=== PATIENT | male | born 1960 | race Caucasian/White ===

== ENCOUNTER 2023-02-11 06:39 | Outpatient (OUT) | payer MEDICARE, SELFPAY ==
[2023-02-11 07:03] LABS: Basophils Absolute Auto 0.1 10^3/uL (0.0-0.1); Basophils Percent Auto 0.9 % (0.2-2.0); Eosinophils Absolute Auto 0.2 10^3/uL (0.0-0.7); Eosinophils Percent Auto 2.3 % (0.9-7.0); Hematocrit 42.7 % (42.0-54.0); Hemoglobin 14.4 g/dL (14.0-18.0); Immature Granulocytes Abs Auto 0.03 10^3/uL (0.00-0.03); Immature Granulocytes Pct Auto 0.4 % (0.0-0.5); Lymphocytes Absolute Auto 2.7 10^3/uL (1.2-3.8); Lymphocytes Percent Auto 38.5 % (20.5-60.0); Mean Corpuscular HGB Conc 33.7 g/dL (29.9-35.2); Mean Corpuscular Hemoglobin 32.1 pg (25.9-34.0); Mean Corpuscular Volume 95.3 fL (80.0-94.0); Mean Platelet Volume 9.9 fL (9.5-13.5); Monocytes Absolute Auto 0.4 10^3/uL (0.3-0.8); Neutrophils Absolute Auto 3.6 10^3/uL (1.4-6.5); Neutrophils Percent Auto 51.9 % (43.0-75.0); Platelet Count 147 10^3/uL (150-450); Red Blood Count 4.48 10^6/uL (4.70-6.10); Red Cell Distribution Width 12.2 % (11.0-15.0)
[2023-02-11 07:20] LABS: Alanine Aminotransferase 33 U/L (16-63); Anion Gap 8.9; BUN Creatinine Ratio 16.4; Calcium 8.5 mg/dL (8.5-10.1); Carbon Dioxide 30.4 mmol/L (21.0-32.0); Chloride 103 mmol/L (98-107); Cholesterol 201 mg/dL (<=200); Estimated GFR (African America >60 (>=60); Estimated GFR (Non-African Ame 56 (>=60); Glucose 155 mg/dL (74-106); HDL Cholesterol 40 mg/dL (40-60); Potassium 4.3 mmol/L (3.5-5.1); Sodium 138 mmol/L (136-145); Triglycerides 272 mg/dL (<=150); VLDL CHOLESTEROL 54.4 mg/dL
[2023-02-11 07:32] LABS: Prostate Specific Antigen Scrn 1.69 ng/mL (<=4.00)
[2023-02-11 07:35] LABS: Estimated Average Glucose 151 mg/dL; Glycohemoglobin A1C 6.9 % (4.5-6.2)
[2023-02-11 12:45] LABS: Microalbumin Urine Random 1.4 mg/dL (<=30.0)
== END 2023-02-11 06:40 | disposition home or self-care (01) ==
LOC: LAB 06:44
PROVIDERS: PCP Internal Medicine; Visit Provider Internal Medicine
DX: Z79.899 Other long term (current) drug therapy (principal); E11.65 Type 2 diabetes mellitus with hyperglycemia; E78.2 Mixed hyperlipidemia; I10 Essential (primary) hypertension; Z12.5 Encounter for screening for malignant neoplasm of prostate
CPT/HCPCS: 36415; 80048; 80061; 82043; 83036; 84460; 85025; G0103

== ENCOUNTER 2023-03-14 07:57 | Outpatient (OUT) | payer MEDICARE, SELFPAY ==
--- OUTSIDE RECORDS SUMMARY | 2023-03-14 08:00 | XMS_ITS | CCD ---
Author Name Unknown Address [address] [place] [address] Organization [facility] Care Team Providers Care Mobile Plant Operators Name Role Phone LANIE CRUZ BENJAMIN E Unavailable Unavailable Ayden, Xavi Garcia Unavailable Unavailable Unavailable AYDEN, DR STAFFORD Primary Care Unavailable REQUEST, DR SIMPSON LISTED Admitting Unavaila ble REQUEST, DR SIMPSON LISTED Attending Unavaila ble BALL, DR STAFFORD Consulting Unavailable REQUEST, DR SIMPSON LISTED Admitting Unavaila ble REQUEST, DR SIMPSON LISTED Attending Unavaila ble AYDEN, DR STAFFORD Primary Care Unavailable REQUEST, DR SIMPSON LISTED Consulting Unavaila ble MAY, EVA Cano Admitting Unavailable MAY, EVA Cano Attending Unavailable BALL, DR STAFFORD Primary Care Unavailable ZIEBER, DR ROOSEVELT Gomez Consulting Unavailable HIGHLEVA MARTINS Consulting Unavailable BALL, DR STAFFORD Admitting Unavailable BALL, DR STAFFORD Attending Unavailable AYDEN, DR STAFFORD Primary Care Unavailable BALL, DR STAFFORD Consulting Unavailable BALL, DR STAFFORD Admitting Unavailable BALL, DR STAFFORD Attending Unavailable BALL, DR STAFFORD Primary Care Unavailable BALL, DR STAFFORD Consulting Unavailable WEST, DR JESSICA Wren Consulting Unavailable XAVI HENSLEY Primary Care Physician Ayden, Dr. Xavi Finney Primary Care Landon Cruz, Dr. Lanie Carlton Referring Radhika vailable Cruz, Dr. Lanie Carlton Attending Radhika vailable Cruz, Dr. Lanie Carlton Attending Radhika vailable Ayden, Dr. Xavi Finney Primary Care Landon Cruz, Dr. Lanie Carlton Referring Radhika vaXavi Poole Unavailable Yoseph CHA Attending Unavailable CHA, Yoseph Gomez Referring Unavailable CHA, Yoseph Gomez Admitting Unavailable Yoseph CHA Attending Unavailable CHA, Yoseph Gomez Attending Unavailable CHA, Yoseph Gomez Attending Unavailable CHA, Yoseph Gomez Attending Unavailable CHA, Yoseph Gomez Attending Unavailable CHA, Yoseph R Attending Unavailable XAVI HENSLEY Referring Unavailable Yoseph CHA Referring Yoseph Roche Attending Unavailable Allergies Allergy Classification Reported Allergen(s) Allergy Type Date of Onset Reaction(s) Facility (1 source) AmLODIPine & Diet Manage Prod *CALCIUM CHANNEL BLO Propensity to adverse reactions Unknown [facility] Other (1 source) Statins Depletion *DIETARY PRODUCTS/DIETAR Y MANAGE Propensity to adverse reactions Unknown [facility] Other (1 source) No Known Medication Allergies; Translations: [No Known Medication Allergies] Propensity to adverse reactions (disorder) [facility] Repository Medications Current Medications Medication Drug Class(es) Dates Sig (Normalized) Sig (Original) Ascorbic Acid (4 sources) Vitamin C Start: 04-29-2022 Vitamin C Daily, Refills(s) 0 Start Date: 04/29/22 Status: Ordered carvedilol 6.25 mg oral tablet (8 sources) alpha-Adrenergic Zen, beta-Adrenergic Zen Start: 04-29-2022 carvedilol 6.25 mg Tab Refills(s) 0 Start Date: 04/29/22 Status: Ordered Centrum Silver (4 sources) Start: 04-29-2022 Centrum Silver Oral, Daily, Refill(s) 0 Start Date: 04/29/22 Status: Ordered ciprofloxacin 500 mg oral tablet (1 source) Quinolone Antimicrobial Start: 03-03-2023 End: 03-24-2023 take 1 tablet by mouth twice daily Cipro 500 mg Tab 500 mg = 1 tab(s), Oral, BID, X 3 week(s), # 42 tab(s), Refills(s) 0, Pharmacy: [facility] #[id number], 168, cm, 03/03/23 11:05:00 EST, Height/Length Dosing, 85, kg, 03/03/23 11:05:00 EST, Weight Dosing Start Date: 03/03/23 Stop Date: 03/24/23 Status: Ordered doxycycline hyclate 100 mg oral capsule (2 sources) Tetracycline-class Drug Start: 05-21-2022 End: 07-20-2022 take 1 capsule by mouth every twelve hours doxycycline hyclate 100 mg Cap 100 mg = 1 cap(s), Oral, q12hr, X 30 day(s), # 60 cap(s), Refills(s) 1, Pharmacy: [facility] #[id number], 168, cm, 05/14/22 10:37:00 EST, Height/Length Dosing, 86, kg, 04/29/22 9:16:00 EST, Weight Dosing Start Date: 05/21/22 Stop Date: 07/20/22 Status: Ordered Start: 04-29-2022 End: 05-20-2022 take 1 capsule by mouth twice daily doxycycline hyclate 100 mg Cap 100 mg = 1 cap(s), Oral, BID, X 3 week(s), # 42 cap(s), Refills(s) 0, Pharmacy: [facility] #[id number], 168, cm, 04/29/22 9:16:00 EST, Height/Length Dosing, 86, kg, 04/29/22 9:16:00 EST, Weight Dosing Start Date: 04/29/22 Stop Date: 05/20/22 Status: Ordered dutasteride 0.5 mg oral capsule (7 sources) 5-alpha Reductase Inhibitor Start: 04-29-2022 take 1 capsule by mouth once daily dutasteride 0.5 mg Cap 0.5 mg = 1 cap(s), Oral, Daily, # 90 cap(s), Refills(s) 3, Pharmacy: [facility], 168, cm, 05/14/22 10:37:00 EST, Height/Length Dosing, 86, kg, 04/29/22 9:16:00 EST, Weight Dosing Start Date: 08/08/22 Status: Ordered Avodart CAPS AYESHA E 1 CAPSULE Daily Quantity: 0 Refills: 0 Ordered: 08-Oct-2022 DO Active ezetimibe 10 mg oral tablet (8 sources) Dietary Cholesterol Absorption Inhibitor Start: 04-29-2022 ezetimibe 10 mg Tab Refills(s) 0 Start Date: 04/29/22 Status: Ordered Fish Oils (4 sources) Start: 04-29-2022 Fish Oil Oral, Refill(s) 0 Start Date: 04/29/22 Status: Ordered ibuprofen 800 mg oral tablet (5 sources) Nonsteroidal Anti-inflammatory Drug Start: 04-29-2022 ibuprofen 800 mg Tab Refills(s) 0 Start Date: 04/29/22 Status: Ordered Start: 03-20-2022 take 1 tablet by david every eight hours at mealtime as needed Ibuprofen 800 MG 1 tablet with food or milk as needed Orally every 8 hrs for 30 days Feb, Active lisinopril 20 mg oral tablet (8 sources) Angiotensin Converting Enzyme Inhibitor Start: 04-29-2022 lisinopril 20 mg Tab Refills(s) 0 Start Date: 04/29/22 Status: Ordered MAGNESIUM GLUCONATE (4 sources) Start: 04-29-2022 magnesium gluconate Oral, BID, Refills(s) 0 Start Date: 04/29/22 Status: Ordered Prevagen (4 sources) Start: 04-29-2022 take 1 ug by mouth once daily Prevagen mcg, Oral, Daily, Refills(s) 0 Start Date: 04/29/22 Status: Ordered tadalafil 10 mg oral tablet (5 sources) Phosphodiesterase 5 Inhibitor Start: 04-29-2022 Cialis 10 mg Tab 10 mg = 1 tab(s), Oral, MonThu, PRN for erectile dysfunction, Refills(s) 0 Start Date: 04/29/22 Status: Ordered Start: 12-04-2021 Cialis 20MG Ci kate 20MG, 1 (one) Tablet Tablet Tablet PRN ED # 32, 12/04/2021, Ref. x3. Active Oral PRN ED for 0 Nov, Not-Taking tamsulosin hydrochloride 0.4 mg oral capsule (9 sources) alpha-Adrenergic Zen Start: 01-17-2022 tamsu losin 0.4 mg Cap Daily, Refills(s) 0 Start Date: 04/29/22 Status: Ordered take 1 capsule by mo [facility] every twelve hours Tamsulosin HCl 0.4 MG 1 capsule Orally twice a day for 90 days Not-Taking take 1 capsule by mouth once estella ly Tamsulosin HCl - 0.4 MG Oral Capsule Take 1 capsule by mouth daily Quantity: 90 Refills: 0 Ordered: 17-Oct-2021 DO Active Completed/Discontinued Medications Medication Drug Class(es) Dates Sig (Normalized) Sig (Original) esomeprazole 40 mg oral tablet (1 source) Proton Pump Inhibitor Start: 11-28-2020 take 1 capsule by mouth once daily Esomeprazole Magnesium 40MG Esomeprazole Magnesium 40MG, 1 (one) Capsule Capsule Capsule daily on empty stomach [facility], No Refill. Active Oral daily on empty stomach [facility] Nov, Not-Taking Fish Oil 1200 MG Oral Capsule Delayed Release (3 sources) take 2 capsules by mouth once daily Fish Oil 1200 MG Oral Capsule Delayed Release 2 daily Quantity: 0 Refills: 0 Ordered: 17-Oct-2021 DO Active levoFLOXacin 500 mg oral tablet (1 source) Quinolone Antimicrobial Start: 03-07-2022 take 1 tablet by mouth once daily levoFLOXacin 500mg levoFLOXacin 500mg, 1 (one) tablet tablet daily # 20, 03/07/2022, No Refill. Active oral daily for 0 Feb, Not-Taking magnesium oxide 250 mg oral tablet (3 sources) take 1 tablet by mouth once daily Magnesium Oxide 250 MG Oral Tablet one daily Quantity: 0 Refills: 0 Ordered: 17-Oct-2021 DO Active meloxicam 15 mg oral tablet (1 source) Nonsteroidal Anti-inflammatory Drug Start: 11-19-2021 take 1 tablet by mouth once daily Meloxicam 15 MG meloxicam 15MG, 1 (one) Tablet Tablet Tablet daily # 30, 11/19/2021, Ref. x2. Active Oral daily for 0 Oct, Not-Taking Multi-Vitamin Daily Oral Tablet (1 source) take 1 tablet by mouth once daily Multi-Vitamin Daily Oral Tablet TAKE 1 TABLET DAILY. Quantity: 0 Refills: 0 Ordered: 17-Oct-2021 DO Active Multi-Vitamin Daily TABS (2 sources) Multi-Vitamin Daily TABS TAKE 1 TABLET DAILY. Quantity: 0 Refills: 0 Ordered: 17-Oct-2021 DO Active Suprep Bowel Prep . (1 source) Start: 05-28-2013 Suprep Bowel Prep . as directed Orally May, Not-Taking Problems Active Problems Problem Classification Problem Date Documented Date Episodic/Chronic Coronary atherosclerosis and other heart disease (1 source) Coronary atherosclerosis and other heart disease Onset: 01-29-2018 Diabetes mellitus with complications (2 sources) Hyperglycemia due to type 2 diabetes mellitus; Translations: [Type 2 diabetes mellitus with hyperglycemia] Chronic Disorders of lipid metabolism (6 sources) Hyperlipidemia; Translations: [Other and unspecified hyperlipidemia] Onset: 03-24-1961 Chronic Essential hypertension (10 sources) Essential hypertension; Translations: [Unspecified essential hypertension] 04-29-2022 Chronic Essential hypertension (1 source) Essential hypertension Onset: 01-29-2018 Genitourinary symptoms and ill-defined conditions (13 sources) Gross hematuria; Translations: [Blood in urine] Onset: 03-19-2022 Episodic Hyperplasia of prostate (11 sources) Benign prostatic hypertrophy without outflow obstruction; Translations: [Benign prostatic hyperplasia without lower urinary tract symptoms] Onset: 04-29-2022 Chronic Inflammatory conditions of male genital organs (6 sources) Prostatitis; Translations: [Inflammatory disease of prostate, unspecified] Onset: 04-29-2022 Episodic Nonspecific chest pain (1 source) Other chest pain; Translations: [Other chest pain] Onset: 01-29-2018 Episodic Other liver diseases (1 source) Fatty (change of) liver, not elsewhere classified; Translations: [FATTY CHANGE LIVER NEC] Onset: 03-22-2022 Chronic Other nutritional; endocrine; and metabolic disorders (3 sources) Obesity; Translations: [Obesity, unspecified] Chronic Other screening for suspected conditions (not mental disorders or infectious disease) (14 sources) Elevated prostate specific antigen [PSA]; Translations: [Raised prostate specific antigen] Onset: 03-14-2022 Episodic Unclassified (2 sources) Other chest pain / R07.89(ICD-9) Onset: 01-29-2018 Unclassified (1 source) Dyspnea, unspecified / R06.00(ICD-9) Onset: 01-29-2018 Unclassified (1 source) Obesity, unspecified / E66.9(ICD-9) Onset: 01-29-2018 Unclassified (1 source) Pure hypercholesterolemia, unspecified / E78.00(ICD-9) Onset: 01-29-2018 Unclassified (1 source) Finding of sensation of bladder 03-03-2023 Past or Other Problems Problem Classification Problem Date Documented Da te Episodic/Chronic Other connective tissue disease (4 sources) Pain in right foot; Translations: [PAIN IN RIGHT FOOT] Onset: 11-14-2021 Episodic Other connective tissue disease (1 source) Calcaneal spur, right foot; Translations: [CALCANEAL SPUR RIGHT FOOT] Onset: 11-16-2021 Episodic Other lower respiratory disease (3 sources) Angiotensin-convert ing-enzyme inhibitor adverse reaction; Translations: [Cough] Resolved: 10-17-2021 Episodic Superficial injury; contusion (1 source) Superficial foreign body, right foot, initial encounter; Translations: [SUPERFICIAL FB RT FOOT INITIAL] Onset: 11-16-2021 Episodic Unclassified (3 sources) Never smoked tobacco; Translations: [Never smoker] Results Test Name Value Interpretation Reference Range Facility Lab Report[facility] 03-07-2023 Lab Reports [id number] .00TIFF Normal [facility] Consent for Procedure/Surger yon 03-04-2023 Consent for Procedure/Surgery [id number] .00TIFF Normal [facility] Lab Reportson 03-04-2023 Lab Reports [id number] .00TIFF Normal [facility] Ambulatory Visit Summaryon 1 05-04-2022 Ambulatory Visit Summary JOSEY NUNEZ :1960 Visit Date:03/03/2023 Ambulatory Visit Instructions Your Diagnosis BPH (benign prostatic hyperplasia) Elevated PSA Feeling of incomplete bladder emptying Prostatitis Your Care Team Attending Physician - Yoseph CHA MD Primary Care Physician - XAVI HENSLEY DO This Is Your Medications List ciprofloxacin (Cipro 500 mg Tab) dutasteride (dutasteride 0.5 mg Cap) tadalafil (Cialis 10 mg Tab) tamsulosin (tamsulosin 0.4 mg Cap) Contact prescribing physician if questions or concerns ascorbic acid (Vitamin C) carvedilol (carvedilol 6.25 mg Tab) cholecalciferol (Prevagen) ezetimibe (ezetimibe 10 mg Tab) ibuprofen (ibuprofen 800 mg Tab) lisinopril (lisinopril 20 mg Tab) magnesium gluconate multivitamin with minerals (Centrum Silver) omega-3 polyunsaturated fatty acids (Fish Oil) Procedures Performed Cystoscopy (04/29/2022), Hernia, Tonsillectomy. Discharge Vitals Heart Rate (Peripheral) 73 Respiratory Rate 16 Blood Pressure 125/87 Height 168 cm Height 66 in Weight 85 kg Weight 187 lb BMI 30.12 What to do next Scheduled Follow-Up Appointments Friday 9:00 AM EST Where: [facility] Jennifer Tam [facility] Patient Educationon 03-03-20 Patient Education Urology Transurethral Resection of the Prostate Transurethral resection of the prostate (TURP) is the removal, or resection, of part of the prostate tissue. This procedure is done to treat an enlarged prostate gland (benign prostatic hyperplasia). The goal of TURP is to remove enough prostate tissue to allow for a normal flow of urine. The procedure will allow you to empty your bladder more completely when you urinate so that you can urinate less often. In a transurethral resection, a thin telescope with a light, a camera, and an electric cutting edge (resectoscope) is passed through the urethra and into the prostate. The opening of the urethra is at the end of the penis. Tell a health care provider about: ? Any allergies you have. ? All medicines you are taking, including vitamins, herbs, eye drops, creams, and ahxa-mfg-tvdxdyy medicines. ? Any problems you or family members have had with anesthetic medicines. ? Any bleeding problems you have. ? Any surgeries you have had. ? Any medical conditions you have. ? Any prostate infections you have had. What are the risks? Generally, this is a safe procedure. However, problems may occur, including: ? Infection. ? Bleeding. ? Allergic reactions to medicines. ? Blood in the urine (hematuria). ? Damage to nearby structures or organs. Other problems may occur, but they are rare. They include: ? Dry ejaculation, or having no semen come out during orgasm. ? Erectile dysfunction, or being unable to have or keep an erection. ? Scarring that leads to narrowing of the urethra. This narrowing may block the flow of urine. ? Inability to control when you urinate (incontinence). ? Deep vein thrombosis. This is a blood clot that can develop in your leg. ? TURP syndrome. This can happen when you lose too much sodium during or after the procedure. Some signs and symptoms of this condition include: ? Weakness. ? Headaches. ? Nausea or vomiting. ? Muscle cramping. What happens before the procedure? When to stop eating and drinking Follow instructions from your health care provider about what you may eat and drink before your procedure. These may include: ? 8 hours before your procedure ? Stop eating most foods. Do not eat meat, fried foods, or fatty foods. ? Eat only light foods, such as toast or crackers. ? All liquids are okay except energy drinks and alcohol. ? 6 hours before your procedure ? Stop eating. ? Drink only clear liquids, such as water, clear fruit juice, black coffee, plain tea, and sports drinks. ? Do not drink energy drinks or alcohol. ? 2 hours before your procedure ? Stop drinking all liquids. ? You may be allowed to take medicines with small sips of water. If you do not follow your health care provider's instructions, your procedure may be delayed or canceled. Medicines Ask your health care provider about: ? Changing or stopping your regular medicines. This is especially important if you are taking diabetes medicines or blood thinners. ? Taking medicines such as aspirin and ibuprofen. These medicines can thin your blood. Do not take these medicines unless your health care provider tells you to take them. ? Taking oedz-ekb-powxzbx medicines, vitamins, herbs, and supplements. Surgery safety Ask your health care provider what steps will be taken to help prevent infection. These steps may include: ? Removing hair at the surgery site. ? Washing skin with a germ-killing soap. ? Taking antibiotic medicine. General instructions ? Do not use any products that contain nicotine or tobacco for at least 4 weeks before the procedure. These products include cigarettes, chewing tobacco, and vaping devices, such as e-cigarettes. If you need help quitting, ask your health care provider. ? If you will be going home right after the procedure, plan to have a responsible adult: ? Take you home from the hospital or clinic. You will not be allowed to drive. ? Care for you for the time you are told. What happens during the procedure? ? An IV will be inserted into one of your veins. ? You will be given one or more of the following: ? A medicine to help you relax (sedative). ? A medicine to make you fall asleep (general anesthetic). ? A medicine that is injected into your spine to numb the area below and slightly above the injection site (spinal anesthetic). ? Your legs will be placed in foot rests (stirrups) so that your legs are apart and your knees are bent. ? The resectoscope will be passed through your urethra to your prostate. ? Parts of your prostate will be resected using the cutting edge of the resectoscope. ? Fluid will be passed to rinse out the cut tissues (irrigation). ? The resectoscope will be removed. ? A small, thin tube (catheter) will be passed through your urethra and into your bladder. The catheter will drain urine into a bag outside of your body. The procedure may vary among health care (more content not included)... Normal [facility] Urology Office/Clinic Noteon 03-03-2023 Urology Office/Clinic Note Chief Complaint elevated PSA and BPH HPI Staff 6 month f/u. Previous dx of BPH and elevated PSA. Pt called 02/27/23 stating that he was only voiding in small amounts. He states that he is not really getting the urge to void he just begins to feel a lot of pressure in his abdomen so he makes himself void. Pt states that this started just before Thanksgi. Pt continues use of Dutasteride 0.5mg QD, Tamsulosin 0.4mg BID and Cialis 10mg PRN. Current PSA done on 02/11/23 was 1.69. Pt was unable to void for UA sample. States that it has been several hours since last void and PVR is 209ml. Dysuria: no Incomplete bladder emptying: yes Hematuria: no Frequency: pt states he is not getting the urge to void he is just feeling a lot of pressure so he makes himself void several times a day. Urgency: no Nocturia: 1x Stream: weaker Leaking: no Post void dripping: no Wearing pads/ Depends: no Urge incontinence: no Stress incontinence: no Incontinence without Sensory Awareness: no Abdominal pain: nothing sharp just pressure Flank pain: bilateral discomfort Sexual complaints: no History of Present Illness Tests reviewed: reviewed UA and PSA. I have reviewed the previous health record information and history for this patient from . I have reviewed and verified the staff HPI to be accurate for this encounter. There have been no associated fever, chills, flank pain, or blood in the urine. Denies any urinary infections since last encounter. Review of Systems PHQ Score Initial Depression Screen Score: 0 SCORE ROS - Provider Constitutional: denies weight loss, denies hot flashes. Eyes: denies eye problems. Gastrointestinal: denies nausea, denies vomiting. Cardiovascular: denies chest pain or angina. Integumentary: no dryness Musculoskeletal: denies musculoskeletal symptoms. ENMT: denies otolaryngeal symptoms. Respiratory: no shortness of breath. Heme/Lymph: denies easy bleeding tendency, denies easy bruising tendency. Psychiatric: no confusion, no anxiety. Genitourinary: See HPI. Physical Exam Vitals & Measurements HR: 73(Peripheral) RR: 16 BP: 125/87 HT: 66 in HT: 168 cm WT: 85 kg WT: 187 lb BMI: 30.12 General Appearance: alert, no distress, well nourished, well developed male. Assessment/Plan 1. BPH (benign prostatic hyperplasia) (N40.0: Benign prostatic hyperplasia without lower urinary tract symptoms) Cysto 05/21/22 - Obstructing median lobe, friable prostate. Trilobar obstruction. Moderate trabeculation, small diverticuli. Pt continues use of Dutasteride 0.5mg QD, Tamsulosin 0.4mg BID and Cialis 10mg PRN. Pt on max dosing for prostate meds, consider TURP if urination becomes worse/bothersome. Explained cons of this procedure vs other [facility] procedures, TURP is the gold standard. Advised pt that now is the time to get it done due to pt experiences increase bothersome urinary sxs. Pt states that he would like to get the TURP done. All questions/concerns were discussed. Pt to call the office if he encounters any issues prior. Pt acknowledges understanding. -Will schedule TURP. The procedural risks, benefits, details, and treatment alternatives have been discussed with the patient. These include bleeding, infection, need for blood transfusion, continued urinary difficulties, urinary leakage which could be permanent, need for catheter, retrograde ejaculation, scar tissue formation in the urinary channel or area of prostate shaving, erection problems, blood clot formation in the lower extremities which could travel to the lungs, among others. A secondary operation could also be required. Full informed consent has been obtained. Will order General anesthesia. -See #3 and #4 2. Elevated PSA (R97.20: Elevated prostate specific antigen [PSA]) PSA (ordered by PCP): 05/15/16 - 2.37 01/22/18 - 2.79 09/08/19 - 3.71 02/26/22 - 5.32 03/14/22 - 3.80 & 22.9% Started Dutasteride 04/29/22. Also treated for prostatitis (Doxy x 3 wks) at this visit. 02/11/23 - 1.69 Discussed PSA levels with pt, low and stable. Will continue to monitor. 3. Feeling of incomplete bladder emptying (R39.14: Feeling of incomplete bladder emptying) Pt called 02/27/23 stating that he was only voiding in small amounts. He states that he is not really getting the urge to void he just begins to feel a lot of pressure in his abdomen so he makes himself void. Pt states that this started just before . Pt was unable to void for UA sample. States that it has been several hours since last void and PVR is 209ml. -Will place catheter today. Stay placed for about 2 weeks. -See #1 and #4 4. Prostatitis (N41.9: Inflammatory disease of prostate, unspecified) Advised pt that he may have prostatitis. Pt states that he took the Doxy for about 2 wks, had stomach issues, went to his PCP due to his sxs, had finished the rest of the Doxy, and had no improvement. Advised pt that we will start him on a new course of abx and place a cath today. (more content not included)... Normal [facility] Comment on above: Result Comment: Elec tronically Signed By: Yoseph CHA MD\.br\Date and Time Signed: 03/03/23 11:48 EST\.br\Electronically Co-Signed By: Laura Haney\.br\Date and Time Co-Signed: 03/03/23 11:45 EST Office Visit (Cardiology)on 10-08-2022 Follow-up visit Diagnoses/Problems Assessed Essential hypertension (401.9) (I10) Hyperlipidemia (272.4) (E78.5) Class 1 obesity with body mass index (BMI) of 31.0 to 31.9 in adult (278.00,V85.31) (E66.9,Z68.31) Never smoker BPH with elevated PSA (600.00,790.93) (N40.0,R97.20) Orders Class 1 obesity with body mass index (BMI) of 31.0 to 31.9 in adult Healthy Weight Tips; Status:Complete - Retrospective Authorization; Done: [id number] Some eating tips that can help you lose weight.; Status:Complete - Retrospective Authorization; Done: [id number] Essential hypertension Renew: Carvedilol 6.25 MG Oral Tablet; Take 1 tablet twice a day Renew: Lisinopril 20 MG Oral Tablet; TAKE 1 TABLET BY MOUTH DAILY SocHx: Never smoker Tobacco Use Screening; Status:Complete; Done: [id number] Patient Instructions Please bring all medicines, vitamins, and herbal supplements with you when you come to the office. Prescriptions will not be filled unless you are compliant with your follow up appointments or have a follow up appointment scheduled as per instruction of your physician. Refills should be requested at the time of your visit. Follow up in 1 year. Lab as scheduled Same meds Chief Complaint JOSEY NUNEZ is being seen for an annual follow-up of. Patient is in the office for follow-up for the problems noted below. Since he was last seen in the office year ago he has had no trouble whatsoever he has no side effect of medications and denies any palpitations dyspnea orthopnea PND or lower extremity edema. He follows with urology and is stable on medical therapy his PSA was tested recently and has been on target. He takes 2 medication for his prostate disease. Has not seen his PCP recently and is scheduled to have his blood work in 4 months. He is a prince and maintains active lifestyle. Apart from class I obesity physical examination was normal. Assessment/recommenda tions: 1- essential hypertension presently under control medical therapy with no changes needed. Patient was wondering if his medication need to be reduced if he loses weight. I did indicate to him that if that happens we will address it at the time and he can see me sooner than scheduled to address this issue. He is very conscientious about his health. 2? dyslipidemia , currently on ezetimibe 10 mg daily which has been tolerated. Blood work is scheduled in 4 months. 3?obesity.encouraged patient to continue to work on low-calorie diet: Regular exercise. 4?BPH on medical therapy followed by urology and stable Patient will follow-up with any office in 1 year Surgical History Problems History of Complete colonoscopy Managed By: Garry MARTINEZ, Nehemias Lopez (Gastroenterology) History of Dental implant procedure History of Hernia repair History of Tonsillectomy Past Medical History Problems History of Cough due to MAC inhibitor (786.2,E942.6) (R05.8,T46.4X5A) Resolved Date: 17 Oct 2021 Current Meds Medication NameInstruction Avodart CAPSTAKE 1 CAPSULE Daily Carvedilol 6.25 MG Oral TabletTake 1 tablet twice a day Ezetimibe 10 MG Oral TabletTAKE 1 TABLET BY MOUTH DAILY Fish Oil 1200 MG Oral Capsule Delayed Release2 daily Lisinopril 20 MG Oral TabletTAKE 1 TABLET BY MOUTH DAILY Magnesium Oxide 250 MG Oral Tabletone daily Multi-Vitamin Daily TABSTAKE 1 TABLET DAILY. Tamsulosin HCl - 0.4 MG Oral CapsuleTake 1 capsule twice daily Patient did not bring medication list or bottles. Updated verbally with patient Allergies Medication No Known Drug Allergies Recorded By: Kenia Lowery; 10/17/2021 9:04:52 AM Social History Problems Alcohol use (V49.89) (Z78.9) Caffeine use (V49.89) (Z78.9) Never smoker No illicit drug use Review of Systems Constitutional: not feeling tired. Cardiovascular: no intermittent leg claudication and as noted in HPI. Respiratory: no cough and no shortness of breath. Gastrointestinal: no change in bowel habits and no blood in stools. Integumentary: no skin rashes. Neurological: no seizures and no frequent falls. All other systems have been reviewed and are negative for complaint. Vitals Vital Signs Recorded: [id number] 08:56AM Heart Rate76, R Radial Ookxikzx017, RUE, Sitting Avjovidpm37, RUE, Sitting Height5 ft 6 in [id number] lb BMI Rrvggrzqpn93.47 kg/m2 BSA Calculated1.98 Tobacco Useb) No PHQ-2 #1. Over the last 2 weeks have you felt down, depressed or hopeless? (If yes, answer PHQ-9 below)No PHQ-2 #2. Over the last 2 weeks have you felt little interest or pleasure in doing things? (If yes, answer PHQ-9 below)No Physical Exam Constitutional: alert and in no acute distress. Neck: neck is supple, symmetric, trachea midline, no masses and no thyromegaly . Pulmonary: no increased work of breathing or signs of respiratory distress and lungs clear to auscultation. Cardiovascular: carotid pulses 2+ bilaterally with no bruit , JVP was normal, no thrills , regular rhythm, normal S1 and S2, no murmurs , pedal p (more content not included)... Normal [facility] Tobacco Screening.on 023 Adult depression screening assessment No [facility] K[facility] 250 DO Work Phone: Tobacco use status [facility] b) No [facility] 250 DO Work Phone: Ambulatory Visit Summaryon 0 09-09-2022 Ambulatory Visit Summary JOSEY NUNEZ :1960 Visit Date:09/09/2022 Ambulatory Visit Instructions Your Diagnosis Elevated PSA BPH (benign prostatic hyperplasia) Your Care Team Attending Physician - Yoseph CHA MD Primary Care Physician - XAVI HENSLEY DO Referring Physician - Yoseph CHA MD This Is Your Medications List dutasteride (dutasteride 0.5 mg Cap) Contact prescribing physician if questions or concerns ascorbic acid (Vitamin C) carvedilol (carvedilol 6.25 mg Tab) cholecalciferol (Prevagen) ezetimibe (ezetimibe 10 mg Tab) ibuprofen (ibuprofen 800 mg Tab) lisinopril (lisinopril 20 mg Tab) magnesium gluconate multivitamin with minerals (Centrum Silver) omega-3 polyunsaturated fatty acids (Fish Oil) tadalafil (Cialis 10 mg Tab) tamsulosin (tamsulosin 0.4 mg Cap) Procedures Performed Cystoscopy (04/29/2022), Hernia, Tonsillectomy. Discharge Vitals Heart Rate (Peripheral) 77 Respiratory Rate 16 Blood Pressure 129/87 Height 168 cm Height 66 in Weight 85.4 kg Weight 187.88 lb BMI 30.26 What to do next You Need to Schedule the Following Appointments Follow Up with Yoseph CHA MD, URL When: Where: [facility] [address], [place] [address]- Medications What How Much When Instructions Unchanged dutasteride (dutasteride 0.5 mg Cap) 1 Capsules By Mouth Every day Unchanged ascorbic acid (Vitamin C) Every day Contact prescribing physician if questions or concerns Unchanged carvedilol (carvedilol 6.25 mg Tab) Contact prescribing physician if questions or concerns Unchanged cholecalciferol (Prevagen) By Mouth Every day Contact prescribing physician if questions or concerns Unchanged ezetimibe (ezetimibe 10 mg Tab) Contact prescribing physician if questions or concerns Unchanged ibuprofen (ibuprofen 800 mg Tab) Contact prescribing physician if questions or concerns Unchanged lisinopril (lisinopril 20 mg Tab) Contact prescribing physician if questions or concerns Unchanged magnesium gluconate By Mouth 2 times a day Contact prescribing physician if questions or concerns Unchanged multivitamin with minerals (Centrum Silver) By Mouth Every day Contact prescribing physician if questions or concerns Unchanged omega-3 polyunsaturated fatty acids (Fish Oil) By Mouth Contact prescribing physician if questions or concerns Unchanged tadalafil (Cialis 10 mg Tab) 1 Tablets By Mouth Friday & as needed for for erectile dysfunction Contact prescribing physician if questions or concerns Unchanged tamsulosin (tamsulosin 0.4 mg Cap) Every day Contact prescribing physician if questions or concerns Allergies No Known Medication Allergies Problems Ongoing - Any problem that you are currently receiving treatment for. BPH (benign prostatic hyperplasia) Elevated PSA Gross hematuria Hypertension Prostatitis Education Materials Prostate Cancer Screening Prostate cancer screening is testing that is done to check for the presence of prostate cancer in men. The prostate gland is a walnut-sized gland that is located below the bladder and in front of the rectum in males. The function of the prostate is to add fluid to semen during ejaculation. Prostate cancer is one of the most common types of cancer in men. Who should have prostate cancer screening? Screening recommendations vary based on age and other risk factors, as well as between the professional organizations who make the recommendations. In general, screening is recommended if: ? You are age 50 to 70 and have an average risk for prostate cancer. You should talk with your health care provider about your need for screening and how often screening should be done. Because most prostate cancers are slow growing and will not cause , screening in this age group is generally reserved for men who have a 10- to 15-year life expectancy. ? You are younger than age 50, and you have these risk factors: ? Having a father, brother, or uncle who has been diagnosed with prostate cancer. The risk is higher if your family member's cancer occurred at an early age or if you have multiple family members with prostate cancer at an early age. ? Being a male who is Black or is of Chris or sub-Saharan descent. In general, screening is not recommended if: ? You are younger than age 40. ? You are between the ages of 40 and 49 and you have no risk factors. ? You are 70 years of age or older. At this age, the risks that screening can cause are greater than the benefits that it may provide. If you are at high risk for prostate cancer, your health care provider may recommend that you have screenings more often or that you start screening at a younger age. How is screening for prostate cancer done? The recommended prostate cancer screening test is a blood test called the prostate-specific antigen (PSA) test. PSA is a protein that i (more content not included)... Normal [facility] Patient Educationon 09-10-19 Patient Education Oncology Prostate Cancer Screening Prostate cancer screening is testing that is done to check for the presence of prostate cancer in men. The prostate gland is a walnut-sized gland that is located below the bladder and in front of the rectum in males. The function of the prostate is to add fluid to semen during ejaculation. Prostate cancer is one of the most common types of cancer in men. Who should have prostate cancer screening? Screening recommendations vary based on age and other risk factors, as well as between the professional organizations who make the recommendations. In general, screening is recommended if: ? You are age 50 to 70 and have an average risk for prostate cancer. You should talk with your health care provider about your need for screening and how often screening should be done. Because most prostate cancers are slow growing and will not cause , screening in this age group is generally reserved for men who have a 10- to 15-year life expectancy. ? You are younger than age 50, and you have these risk factors: ? Having a father, brother, or uncle who has been diagnosed with prostate cancer. The risk is higher if your family member's cancer occurred at an early age or if you have multiple family members with prostate cancer at an early age. ? Being a male who is Black or is of Chris or sub-Saharan descent. In general, screening is not recommended if: ? You are younger than age 40. ? You are between the ages of 40 and 49 and you have no risk factors. ? You are 70 years of age or older. At this age, the risks that screening can cause are greater than the benefits that it may provide. If you are at high risk for prostate cancer, your health care provider may recommend that you have screenings more often or that you start screening at a younger age. How is screening for prostate cancer done? The recommended prostate cancer screening test is a blood test called the prostate-specific antigen (PSA) test. PSA is a protein that is made in the prostate. As you age, your prostate naturally produces more PSA. Abnormally high PSA levels may be caused by: ? Prostate cancer. ? An enlarged prostate that is not caused by cancer (benign prostatic hyperplasia, or BPH). This condition is very common in older men. ? A prostate gland infection (prostatitis) or urinary tract infection. ? Certain medicines such as male hormones (like testosterone) or other medicines that raise testosterone levels. A rectal exam may be done as part of prostate cancer screening to help provide information about the size of your prostate gland. When a rectal exam is performed, it should be done after the PSA level is drawn to avoid any effect on the results. Depending on the PSA results, you may need more tests, such as: ? A physical exam to check the size of your prostate gland, if not done as part of screening. ? Blood and imaging tests. ? A procedure to remove tissue samples from your prostate gland for testing (biopsy). This is the only way to know for certain if you have prostate cancer. What are the benefits of prostate cancer screening? ? Screening can help to identify cancer at an early stage, before symptoms start and when the cancer can be treated more easily. ? There is a small chance that screening may lower your risk of dying from prostate cancer. The chance is small because prostate cancer is a slow-growing cancer, and most men with prostate cancer from a different cause. What are the risks of prostate cancer screening? The main risk of prostate cancer screening is diagnosing and treating prostate cancer that would never have caused any symptoms or problems. This is called overdiagnosisand overtreatment. PSA screening cannot tell you if your PSA is high due to cancer or a different cause. A prostate biopsy is the only procedure to diagnose prostate cancer. Even the results of a biopsy may not tell you if your cancer needs to be treated. Slow-growing prostate cancer may not need any treatment other than monitoring, so diagnosing and treating it may cause unnecessary stress or other side effects. Questions to ask your health care provider ? When should I start prostate cancer screening? ? What is my risk for prostate cancer? ? How often do I need screening? ? What type of screening tests do I need? ? How do I get my test results? ? What do my results mean? ? Do I need treatment? Where to find more information ? The [place] [employer]: www.cancer.org ? [employer]: www.auanet.org Contact a health care provider if: ? You have difficulty urinating. ? You have pain when you urinate or ejaculate. ? You have blood in your urine or semen. ? You have pain in your back or in the area of your prostate. Summary ? Prostate cancer is a common type of cancer in men. The prostate gland is located below the bladder and in front of the rectum. This gland adds flu (more content not included)... Normal [facility] Urology Office/Clinic Noteon 09-09-2022 Urology Office/Clinic Note Chief Complaint BPH HPI Staff F/u to local cysto done 04/29/22. Previous dx include gross hematuria, BPH, elevated PSA and prostatitis. Negative FISH/Cytology 04/29/22 and most current PSA done 03/14/22 was 3.8 and 22.9%. Pt continues taking Dutasteride 0.5mg QD, Tamsulosin 0.4mg QD and Cialis 10mg Mon and Thurs. Dysuria: no Incomplete bladder emptying: no Hematuria: no Frequency: no Urgency: no Nocturia: pt is not getting up Stream: good stream some occasional intermittency Leaking: no Post void dripping: no Wearing pads/ Depends: no Urge incontinence: no Stress incontinence: no Incontinence without Sensory Awareness: no Abdominal pain: no Flank pain: no Sexual complaints: no History of Present Illness Tests reviewed: reviewed UA, cysto note. I have reviewed the previous health record information and history for this patient from Dr. Cha. I have reviewed and verified the staff HPI to be accurate for this encounter. There have been no associated fever, chills, flank pain, or blood in the urine. Denies any urinary infections since last encounter. Review of Systems PHQ Score Initial Depression Screen Score: 0 ROS - Provider Constitutional: denies weight loss, denies hot flashes. Eyes: denies eye problems. Gastrointestinal: denies nausea, denies vomiting. Cardiovascular: denies chest pain or angina. Integumentary: no dryness Musculoskeletal: denies musculoskeletal symptoms. ENMT: denies otolaryngeal symptoms. Respiratory: no shortness of breath. Heme/Lymph: denies easy bleeding tendency, denies easy bruising tendency. Psychiatric: no confusion, no anxiety. Genitourinary: See HPI. Physical Exam Vitals & Measurements HR: 77(Peripheral) RR: 16 BP: 129/87 HT: 66 in HT: 168 cm WT: 85.4 kg WT: 187.88 lb BMI: 30.26 General Appearance: alert, no distress, well nourished, well developed male. Genitourinary: normal scrotum, normal testes, normal urethra, normal epididymis, normal vas deferens/spermatic cord. Flank Pain: none. Bladder: nonpalpable. Assessment/Plan 1. Elevated PSA (R97.20: Elevated prostate specific antigen [PSA]) PSA (ordered by PCP): 05/15/16 - 2.37 01/22/18 - 2.79 09/08/19 - 3.71 02/26/22 - 5.32 03/14/22 - 3.80 & 22.9% Started Dutasteride 04/29/22. Also treated for prostatitis (Doxy x 3 wks) at this visit. Last PSA on the high end of normal. Will cont to monitor. Educated pt to double PSA while taking Dutasteride. 2. BPH (benign prostatic hyperplasia) (N40.0: Benign prostatic hyperplasia without lower urinary tract symptoms) Cysto 05/21/22 - Obstructing median lobe, friable prostate. Trilobar obstruction. Moderate trabeculation, small diverticuli. No sample provided for UA today. Started Dutasteride 0.5 mg QD and Tamsulosin 0.4 mg bid at prior OV. Taking Cialis 10 mg 2x/week. Feels he empties completely. No nocturia. Noticed worsening urination after gaining weight on a cruise. Working on weight loss. No urgency episodes. No gross hematuria after completing abx course. Hematuria workup 04/2022 was neg. Pt on max dosing for prostate meds, consider TURP if urination becomes worse/bothersome or if pt were to develop UTIs. Pt inquired about Urolift. Explained cons of this procedure vs other YEBOAH procedures, TURP is the gold standard. Reviewed cysto findings with pt. Follow up 6 mos PSA FT from PCP or sooner if needed. Pt understands and agrees with plan. -Pt to call if he were to develop infection prior to next encounter. Follow-up With When Contact Information Yoseph CHA MD, URL [facility] [address] [place] [address]- Additional Instructions: 6 mos PSA FT from PCP in [place] Patient Education Prostate Cancer Screening I, Carmen Markham, personally scribed for Dr. Cha on 09/09/2022 10:10:01. . Documentation recorded by the scribe, Carmen Markham, accurately reflects the services(s) I performed and decisions made by me. Authenticated by Dr. Cha on 09/09/2022 10:13:10. Problem List/Past Medical History Ongoing BPH (benign prostatic hyperplasia) Elevated PSA Gross hematuria Hypertension Prostatitis Historical No qualifying data Procedure/Surgical History Cystoscopy (04/29/2022), Hernia, Tonsillectomy. Medications carvedilol 6.25 mg Tab Centrum Silver, Oral, Daily Cialis 10 mg Tab, 10 mg= 1 tab(s), Oral, MonThu, PRN dutasteride 0.5 mg Cap, 0.5 mg= 1 cap(s), Oral, Daily, 3 refills ezetimibe 10 mg Tab Fish Oil, Oral ibuprofen 800 mg Tab lisinopril 20 mg Tab magnesium gluconate, Oral, BID Prevagen, Oral, Daily tamsulosin 0.4 mg Cap, Daily Vitamin C, Daily Allergies No Known Medication Allergies Social History Tobacco - Denies Tobacco Use, 09/09/2022 Never (less than 100 in lifetime) Tobacco Use:. Never Smokeless Tobacco Use:., 04/29/2022 Family History Family history is negative Immunizations Vaccine Date Status (more content not included)... Normal [facility] Comment on above: Result Comment: Elec tronically Signed By: Yoseph CHA MD\.br\Date and Time Signed: 09/09/22 10:13 EDT\.br\Electronically Co-Signed By: Carmen Markham\.br\Date and Time Co-Signed: 09/09/22 10:10 EDT Coding Summary.on 05-22-2022 Coding Summary. CD:[id number] G h0bWw+PGhlYWQ+ZC4DPQP wK30rmVNypT8KY3zNIX9I NIBRNMJBHO8LZL6tlCQ1Z RjwV6SuvyFj TcrwmQKgHS05RTk0PUN2j NozLEakfH7phZKnK5e8Wy JcXT01pF84TGfqNTTwBrW 3LjZpbjsgbWFy Q3noStLcnJYzAhr+PHRhY mxlIHdpZHRoPScxMDAlJy OvpHrrAS4fJx4aZOHoHRX vbGxhcHNlOiBj i0eoETPnTLnzGL6bkDeoC 4AbdBU9HIJfe0c6Cc13fT I+RKNlUIA3wAgcVOqfp18 8QrFwx2gxJOL9 aBKoWTlgAJK6I94rk5V0C ADxYRXtDAZ5jFW6uD3lfI flxjaxN1ObaBJqOrN7KFW 5pDVwbK7pmKja nrhbzY2sHwf+C24CGE6WT SGUMY8ACvu4Q7BzLxbmlZ I+JE52TBLmYW78yBTypAN fm4cvcJj2KlJp DUYtFRJ9rCevQEvrn0ReT STsE35ihOGhd0L9AGMesC dtzUZyBhRmoFV9rX9mTCv qktujq9yztvgp Ylcby2vgwc30nS73Y67xZ ZcgZFVuXLE6XRSiECHtvV zntv1seP9zHz8+NJvui8l fu1iksDl4SoYl PSHkipKdsYndZGL8v2QcR f20I6LgrAtfz3VwNtw6wb 70gASjq5T8pOG0PUqrQXH ndF5hOZzsDpV9 KQPwIkMguL94xPQiUWocA z0snPqwoWvgOR5cOVSqpi ckNFQylF7oOXWyfBLacEy nXS8aDYUwbwot e814MjIrACR7MWCjgPGgK 7RbwA0vFgBcWKAxKKFvS6 SjmHRcWJqkN447ZQkwXkN 7KOTnujSrL8Nk IKZxcQxiHhJ6e7E0Xt6Mk 7TxngqpAJA5HEvjBDLcAp ZyMyQxJpQ0E4TgXng4LJZ zkXlhUX8lJ4Tc HZNjuuniwjwklST3TLRtF OKknI95rRDlYFicYc8pk1 R9y026GIMxYHLzfK76Sr7 udDogMTBwdCBU dQ4exzjuk0wqmdscHcAsC ULgTUk1UNc1SXChyQrlTw SsYHW4PcZ3XDU3fEUttH8 qfRvltczbrY2w Oyc+Q01zuN0qRJN9ZXP1d nddJXAncgEvIN84OX41L6 RyPjwvdGFibGU+PGRpdiB hyMxwKE1iZxSh d5dnx3DeMHodG8UeMWNyH VyjJox7YINzMGE0iEN2iG 6wZVNgDIkds0C9xVL2D7F usyMwpu2sp4bq QZIrNRleS45ipRTxw9H4I NYgmWU5CCDcdQdaOlXerB 93Oyc+NBJyyTrlj0HuPin uw1zvq0vngYv9 YcIbHWFgrcPvyEfsSDM2y 4TgFt59M48tTOawIJZeUH WfXCEkFETptBnbbm5bhO3 wIi8+PGNvbCB3 wVS4dM2rCOGjEdO3AQnwZ 892UaGuuAPqGhtqc7vzu9 saqBg9UdAgGWRhmiZttEl bAXP4b5RrVj99 U69gWSnrVYFzUSMnKLYbE EYeiOkbnm7qoW3rQy9+PC 4hs9vhnl18xE07xMK+PHR bFPV1bRxvFZfo JFHbiG8iDAtuCiX2SBSdL dPrpV19hUKnPKjoFm9smW fnkBpxQO7mRYWviixha55 0WnUtr8tdMLLu rGCmLTbrEAV5K14gn7K9Z RYaFARyUUI5bHT3lX2xfN lnbjogbGVmdDsgdmVydGl wFPejLUmyT960 IHRvcDsnPlBhdGllbnQgT aAzWOz6J6RuGts0QEAizV uyXT5wrFNoFSvtAd5mmXo vdTbiIC6uGMQw edcxz239JjXen2iwWVTcq GZxHArhSGJ0W59pg4B3KB MkGVArGSE9cXK0nF8gcLo nbjogbGVmdDsg tiLhfYvvCWzcORieT421N HRvcDsnPkJpcnRoIERhdG O6UR70SX09tRYue1Q1oCR 0Z2JeXETpaqhp qoqppBO6PXPwUCFfyZ63Y a0xaOcvKe3pWXAnAOF7VE SmfCUgA0CwkM0aFiJtGWZ fRQSzF0NsaZEe CFgwZ736OTngPaY3NCQdk aPoM8PdBQJhtJgzNsB1e0 P5Ny0NC1F0YK56AG69iUJ xh3B6dHT2C6Uo NPQzgaxwpoftqYL8XSCpT FNpkY92Rc1eyJreDy5sNN UhCOT5QRPwvNJnE1LgzA3 yOiAjMDAwMDAw Y4JdkYUwXQhxW657IJooK qP9FNKkzkBpG3DwGSPfbJ ayTqR1c7L9Gb2TBUg7KE2 4SE31oBUtc7W9 vWS5U4TrLIZzshbayawna AG3YEFuIVEeuS45Lm7wlX kiOn4qJHEySTT0NUHgyYM uG8IzaH9mVqAs YIOsUDWmU9TogYJxDNvjA 152TLixXhW8KUFnkdMlK1 DiOHZjvGeqLtR2n8D0Gu2 CALCkAC44PHG4 pBE7UD22DF38N0IfNhogm GFibGU+PHRhYmxlIHdpZH RoPScxMDAlJyBzdHlsZT0 lGz6oPQVxWLXn eAjquYGaMlPkx1iaJIGiO DozPB8tgKxhN8PpcDV4QJ Fzj7j9Rp32W78vC9HrvKU +HQXjeFN8eIV0 aK5jUkBdNsF5HUxrM322H iAeiJRbPbyes0jye2lyvL x3JhO5AVDhvxWkeEzsRWN 5c9QnGx05T26y IHdpZHRoPSIxNSUiIHZhb Zlgex3uuU2cDx2+PGNvbC L4lTO5nR7xHxDoEoX8ZUl zE671SbFwlHZo Ivxxm2bkf4pfbBc9FmLyW FEdqcSjsYbdJDV9h3SyWk 26I3UyuBaxo0IwVkt4el6 5cEVfs9S2aOE0 Z3TdKGNwjznfiJOlsZnfR J4zNLPpgtgfIXZwtE2cRX ZnX5r7XgQuEoY7XGssJ1C vagY2FZEdcIXf HGjvWWV0Q59yn5B4SEWkW QUlEGB6xIX7sI4obLqadx ogbGVmdDsgdmVydGljYWw iTSahB007WVUo fEodHBOouX7lUJKufBKoy RohEK2gANFfsnzxSrfVQ7 0NLwjxYujQSAXAZUUZWQ3 7WD59cGQbe3Q7 wBX8Y0KxUSHmyfthhotjb WN8UKCxLTMesW46tMJzLJ jhBy2xr7S0f291EBOtLUI riB04Lw3hzBta SHYhqCZEpM1abrimt6upx pxzFmUqQQTpXEp5XZd0ZT EwtBqoMeWsDZT5OkG2PSM 4kPNkhL4qfInq lkddiD1pUbn+MTAvMzEvM Rn8QBzbpXD+KIJhUMV4oV rcRTmrWLTkaL0sLXQlR7j 1JdNqExJ8KRfq B2HeXLRsyrdfWa38rR6dA mEoGnG2NFfhY5CwmaF7MJ VczCJvSUbeTFL9Y98cb4O 3PVVuTTNwFRG3 qHF4tJ0geKsjsgorhHMem DsgdmVydGljYWwtYWxpZ2 60LFWvuGizXcR7NAtvDPR oFK46OH49gOTs r1T4gBR8J6HhJCNhcmole tqbvCH1MQTuUVYtdO85fH ShFSytSo2zr2D5e289NQZ bJNRudM78Bi0u jThxOFOqeXMMiU1jhvfme 0xptgtpKcXnULIeBRw5KQ g4JSDllBsaScJrPDO1EsH 9FTX7rMItxQ2a pBfdolojcB1wFyv+TWFsZ TwvdGQ+IYKxOHL9pOioJZ knLMDabH3wRVCzX6x1FfY cLwV3JStxE2Fa UGBngkpeEv72hD3jPsWuB bL8WAybM2EkdqN2PGPsuO HpDBowOCW6U39qd5A9SPO nSZKuYTJ2hLU3 kH9qiYfhqcnzzYCkrLrvx gOdbJuxRYmvRCtpS191NU NsrHlnIa87uKBxlLumzgW 3O6BoGayyrQA+ SK64JSEcPT89nDXepPGlu 5mnpWn6OlAsVWTbSZR4rQ hcZOufm6MyZHMcO10ahUA sj3V4PFYseKmz eIGjHdCuvRB7iH7aPKyhh dxeq8hcigzdJbgje7lxnq 75yW18I68hNKojUKBlTGJ zMCUiIHZhbGln ma3xgW0iGg4+UXFeqIZ4w WF3kR9sUoScEyE8BLecT4 52WhLwyILdTekkw5yrc4z lbDo4BsJkQQCy nxKddGotMDR1n4TzZz42V 29sIHdpZHRoPSIyMCUiIH NldMkxzo7veE1sTi7+PC9 ya6ewjk63mC33 dHI+XBKtVOC2jIykLNxyR OFjbS8hZOwjBxY0JRWnRe OugI93fCOxNCvkCg4whXl lyVqkQB8lPIZu smdsi333JkXmv5iyIOEes DGnPNabHDI2R04wu6E5JY WtTRXsFZS5eUH9gK6bgUc nbjogbGVmdDsg kuVbgHdeLFkvGUgvA839S RAbnOytVePluJFeW1tdlt XADQ7xWbsgtIA+PHRkIHN 0eWxlPSdwYWRk rL6yJQPbF3q9FfLrJqI8Q KwaI3XbmwI8BPGimULgQW YerJKIvO6mmqhpx8yamae gIzAwMDAwMDt0 FFt8BXFysNmsPxTeTMB3J eP8VUB9aWNytJ9gySispa mlbD1nMtq+RklOOjwvdGQ +VQKvRAE3yAxx OMsjWQBmzD4bBABaP3v5A eLcSkE0EOetQ0RnryY9KD HroULwGIKdwABSxA4eqyr gw1hbclivCzKh RVCwZNt5FXq5SWHndVzlO yFyGBQ6PbV9SXU1rNKbhZ 5dxQepjhmpqL1qYaz+TVJ OOjwvdGQ+PHRk HLE5uJsqVIvdVWFswF9pY AZxG8t8EmFqXkK3RCdbQ9 WwpeF0WFLkiJOcDSPlmMP AeO4fpsjnr2da zuikAjOiXDOlHBq2ZXu6Q CUklYzfCuNiDHM0DoE4LF I0oSIydF1gjHxjubdbaX6 wOyc+HPC1KNI3 JY97HZ38C0QmAbqteKYii +PHRhYmxlIHdpZHRoPS lzTFMmYhUjnPwxKV3mXu5 yZGVyLWNvbGxh cHNl (more content not included)... [facility] Consent for Procedure/Surger yon 05-21-2022 Consent for Procedure/Surgery [id number]# 1.00CD:127 [facility] Consent for Treatmenton 04-25 Consent for Treatment [id number]#1 .00CD:127 [facility] IntraOperative Documentson 0 05-21-2022 IntraOperative Documents [id number]# 1.00CD:127 [facility] Main OR Intraoperative Recor don 05-21-2022 Main OR Intraoperative Record IntraOp Document Type FTURO Summary Primary Physician: Yoseph CHA MD Finalized Date/Time: 05/21/22 10:00:28 Pt. Name: JOSEY NUNEZ/Sex: 1960 Male Med Rec #: [id number] Physician: Yoseph CHA MD Financial #: [id number] Pt. Type: O Room/Bed: / Admit/Disch: 05/21/22 09:22:48 - Institution: Case Times FTURO Entry 1 Patient Times In Room 05/21/22 09:48:00 Out Room 05/21/22 10:06:00 Procedure Times Start 05/21/22 09:54:00 Stop 05/21/22 10:00:00 Anesthesia Times Last Modified By: Corina KULKARNI, Emmie SANCHEZ 05/21/22 10:00:21 Case Attendance FTURO Entry 1 Entry 2 Entry [address] MARTINEZ, Yoseph Arriaga RN, ROSIOR, Juliet SMITH, Ita Olea Role Performed Surgeon - Primary Java Development Manager - Primary Scrub - Primary Time In 05/21/22 09:48:00 05/21/22 09:48:00 05/21/22 09:48:00 Time Out 05/21/22 10:06:00 05/21/22 10:06:00 05/21/22 10:06:00 Procedure CYSTOSCOPY LOCAL(.) CYSTOSCOPY LOCAL(.) CYSTOSCOPY LOCAL(.) Comments Last Modified By: Corina KULKARNI, ROSIOR, Corina KULKARNI, ROSIOR, Corina KULKARNI, LAURA, Emmie 05/21/22 Emmie 05/21/22 Emmie 05/21/22 10:00:22 10:00:22 10:00:22 Surgical Procedures FTURO Entry 1 Procedure Description Procedure CYSTOSCOPY LOCAL Modifiers . Surgeon Description CYSTOSCOPY Primary Procedure Yes Primary Surgeon Yoseph CHA MD Start 05/21/22 09:54:00 Stop 05/21/22 10:00:00 Anesthesia Type Local Surgical Service Urology Wound Class 2 - Clean-Contaminated Last Modified By: Corina KULKARNI, Emmie SANCHEZ 05/21/22 10:00:24 General Case Data FTURO Pre-Care Text: Classifies surgical wound, implements aseptic technique, initiates traffic control Entry 1 Case Information OR URO 1 FT Case Level None Wound Class 2 - Clean-Contaminated Specialty Urology Preop Diagnosis GROSS HEMATURIA BPH Postop Same As Preop Yes IWHT LUTZ ELEVATED PSA Postop Diagnosis GROSS HEMATURIA BPH Outcomes Met? Yes IWHT LUTZ ELEVATED PSA Last Modified By: Corina KULKARNI, LAURA, Emmie 05/21/22 09:53:02 Post-Care Text: The patient is free from signs and symptoms of infection EU IntraOp - FTURO Pre-Care Text: Implements protective measures prior to operative or invasive procedure, confirms identity before the operative or invasive procedure, verifies operative procedure, surgical site, and laterality Entry 1 EU Perioperative Protocols Procedure(s) CYSTOSCOPY LOCAL(.) Patient Identity Birthday, ID Band Verified (select at Check, Patient least 2): Participation Consents / H and P HandP, Surgery/Procedure Operative Site N/A Verified Consent Marking Verified Surgical Site Yes Laterality Verified n/a Verified Procedure Verified Yes Correct Patient Yes Position Verified Availability Equipment, Medication Time Out Yoseph CHA MD, Verified (If Participants Juliet SMITH, Ita Applicable) Corina Govea RN, Emmie SANCHEZ Time Out Complete 05/21/22 09:54:00 Allergies Reviewed? Yes Allergies Reviewed Self/Patient With Body Position Supine Prep Area penis Prep Agents Betadine Solution Skin. Condition Unable to Visualize Additional None Specimens Collected Vitals - EU Blood Pressure 144/83 Pulse 75 bpm Respirations SPO2 EBL 0 IandO - EU Total Intake 0 mL Total Output 0 mL Outcomes Met? Yes Last Modified By: LAURA Arriaga RN, Ruthann 05/21/22 09:57:49 Post-Care Text: The patient is free from signs and symptoms of injury caused by extraneous objects Sign Out FTURO Entry 1 Before Patient Leaves OR Nurse verbally Yes Nurse verbally n/a confirms with the confirms with the team the name of team that the procedure(s) instrument, sponge, recorded and needle counts are correct (or N/A) Nurse verbally n/a Nurse verbally n/a confirms with the confirms with the team how the team whether there specimen is labeled are any equipment (including patient problems to be name), if applicable addressed Sign Out Complete 05/21/22 10:04:00 Last Modified By: LAURA Arriaga RN, Ruthann 05/21/22 09:59:35 Case Comments Finalized By: LAURA Arriaga RN, Ruthann Document Signatures Signed By: LAURA Arriaga RN, Ruthann 05/21/22 10:00 [facility] Main OR Preoperative Recordo n 05-21-2022 Main OR Preoperative Record Holding Area Document Type FTURO Summary Primary Physician: Yoseph CHA MD Finalized Date/Time: 05/21/22 09:50:43 Pt. Name: JOSEY NUNEZ/Sex: 1960 Male Med Rec #: [id number] Physician: Yoseph CHA MD Financial #: [id number] Pt. Type: O Room/Bed: / Admit/Disch: 05/21/22 09:22:48 - Institution: Case Times Holding FTURO Pre-Care Text: Verifies consent for planned procedure, identifies individual values and wishes concerning care, includes family members in perioperative teaching Secures patient's records' belongings, and valuables, maintains patient's dignity and privacy, and maintains patient confidentiality Entry 1 In Holding 05/21/22 09:33:00 Outcomes Met? Yes Last Modified By: Suyapa Barfield LPN 05/21/22 09:33:34 Post-Care Text: The patient participates in decisions affecting his or her perioperative plan of care The patient's right to privacy is maintained Surgery Checklist FTURO Entry 1 Patient Birthday, Patient Procedure History and Physical, Identification: Participation Verification: Surgical Consent, With Patient NPO after Midnight: No Date/Time: 05/21/22 09:33:00 Personal Items: Glasses, Jewelry Personal Items clothes Comment: Limitations: na Complaints of Pain: No Pain Comment: na Skin Integrity Intact, [place], Warm, & Dry Vitals - EU Blood Pressure 144/83 Pulse 75 bpm Respirations 18 br/min SPO2 96 % RN Reviewed Yes Last Modified By: LAURA Arriaga RN, Ruthann 05/21/22 09:50:40 General Comments: temp:36.5 Finalized By: LAURA Arriaga RN, Ruthann Document Signatures Signed By: Suyapa Barfield LPN 05/21/22 09:35 LAURA Arriaga RN, Ruthann 05/21/22 09:50 Normal [facility] Operative Reporton Operative Report Patient: JOSEY NUNEZ Age: 62 years Sex: Male : 1960 Associated Diagnoses: None Author: Yoseph HCA MD Procedure Operative Information Details: Date/ Time: 05/21/2022 10:02:00. Pre-Op Dx: Gross Hematuria - R31.0, BPH w/ LUTS - N40.1. Post-Op Dx: Same. Anesthesia Type: Local. Procedure: Local Cystoscopy. Complications: None. Risks/Benefits/Inform ed Consent: Surgical risks, benefits, details of the procedure have been explained to the patient, Full informed consent has been obtained. Intraoperative Information Prepped: Patient is brought back to the endoscopy suite, Patient is placed in supine position, Patient prepped in the usual fashion with Betadine solution, 2% Xylocaine Jelly is placed per Urethra, After waiting several minutes the Cystoscope is introduced. The Urethra is: Normal. The Prostatic Urethra is: Obstructed, Median Lobe, Friable prostate. Trilobar obstruction.. The Bladder is: Trabeculated (Moderate (2), No bladder tumors. Small diverticuli.). The ureteral orifices: Show efflux of clear urine. Devices Implanted: None. Removal: Cystoscope is removed, The patient tolerated it well. Postoperative Information Discharge: Patient is discharged home with antibiotic coverage, Follow up arranged. Normal [facility] Comment on above: Result Comment: Elec tronically Signed By: AVE MARTINEZ, Yoseph Bullock\Date and Time Signed: 05/21/22 10:03 EST Pre-Certification Formon Pre-Certification Form [id number] .00CD:127 Normal [facility] UroVysion Fish and Urine Cyt o ([facility])on 05-06-2022 UVFISH & UC Diagnosis Info Invalid Interpretation Code [facility] Comment on above: Result Comment: A:Ur ine,Urine:Voided Diagnosis Summary - Diagnosis Summary - The UroVysion FISH study detected normal copy numbers for chromosomes 3, 7, 17, and 9p21. 63 cells were analyzed in this evaluation. No evidence of aneuploidy for chromosomes 3, 7, or 17 or deletion of the 9p21 locus was found in cells present in this specimen. This test does not rule out the possibility of a low grade non-invasive papillary urothelial carcinoma. These findings should be correlated with cytology and cystoscopy results.* Microscopic Notes - Microscopic Notes - Abnormal cells 9p21 deletions: Abnormal cells aneploid events: Total cells analyzed: 63 Hematuria: Gross Description Site ID:A color Yellow fixative Alcohol Received 100 mls of clear yellow fluid with the patient's name and, Urine on the vial. Electronically signed by : on: 05/06/2022 16:29:38 Performed By: #### 1 [id number] ####[facility] [address] [place] [address] Lab Reportson 04-29-2022 Lab Reports [id number]#1 .00CD:127 Normal [facility] Patient Educationon 04-29-19 Patient Education Urology Hematuria, Adult Hematuria is blood in the urine. Blood may be visible in the urine, or it may be identified with a test. This condition can be caused by infections of the bladder, urethra, kidney, or prostate. Other possible causes include: ? Kidney stones. ? Cancer of the urinary tract. ? Too much calcium in the urine. ? Conditions that are passed from parent to child (inherited conditions). ? Exercise that requires a lot of energy. Infections can usually be treated with medicine, and a kidney stone usually will pass through your urine. If neither of these is the cause of your hematuria, more tests may be needed to identify the cause of your symptoms. It is very important to tell your health care provider about any blood in your urine, even if it is painless or the blood stops without treatment. Blood in the urine, when it happens and then stops and then happens again, can be a symptom of a very serious condition, including cancer. There is no pain in the initial stages of many urinary cancers. Follow these instructions at home: Medicines ? Take wyts-myk-yohbmtw and prescription medicines only as told by your health care provider. ? If you were prescribed an antibiotic medicine, take it as told by your health care provider. Do not stop taking the antibiotic even if you start to feel better. Eating and drinking ? Drink enough fluid to keep your urine clear or pale yellow. It is recommended that you drink 3?4 quarts (2.8?3.8 L) a day. If you have been diagnosed with an infection, it is recommended that you drink cranberry juice in addition to large amounts of water. ? Avoid caffeine, tea, and carbonated beverages. These tend to irritate the bladder. ? Avoid alcohol because it may irritate the prostate (men). General instructions ? If you have been diagnosed with a kidney stone, follow your health care provider's instructions about straining your urine to catch the stone. ? Empty your bladder often. Avoid holding urine for long periods of time. ? If you are female: ? After a bowel movement, wipe from front to back and use each piece of toilet paper only once. ? Empty your bladder before and after sex. ? Pay attention to any changes in your symptoms. Tell your health care provider about any changes or any new symptoms. ? It is your responsibility to get your test results. Ask your health care provider, or the department performing the test, when your results will be ready. ? Keep all follow-up visits as told by your health care provider. This is important. Contact a health care provider if: ? You develop back pain. ? You have a fever. ? You have nausea or vomiting. ? Your symptoms do not improve after 3 days. ? Your symptoms get worse. Get help right away if: ? You develop severe vomiting and are unable take medicine without vomiting. ? You develop severe pain in your back or abdomen even though you are taking medicine. ? You pass a large amount of blood in your urine. ? You pass blood clots in your urine. ? You feel very weak or like you might faint. ? You faint. Summary ? Hematuria is blood in the urine. It has many possible causes. ? It is very important that you tell your health care provider about any blood in your urine, even if it is painless or the blood stops without treatment. ? Take caja-cwj-bwfigte and prescription medicines only as told by your health care provider. ? Drink enough fluid to keep your urine clear or pale yellow. This information is not intended to replace advice given to you by your health care provider. Make sure you discuss any questions you have with your health care provider. Document Released: 03/10/2006 Document Revised: 08/04/2019 Document Reviewed: 04/12/2017 Elsevier Patient Education ? 2019 [employer] Normal [facility] Physician Referralon 023 Physician Referral [id number] .00CD:127 Normal [facility] RAD - CT Reporton 04-29-2022 RAD - CT Report [id number]#1 .00CD:127 Normal [facility] RAD - CT Report [id number] .00CD:127 Normal [facility] UroVysion Fish and Urine Cyt o ([facility])on 04-29-2022 [facility] Method of Extraction Voided Normal [facility] Comment on above: Performed By: #### 1 [id number] ####[facility] [address] [place] [address] [facility] Number of Jars 1 Invalid Interpretation Code [facility] Comment on above: Performed By: #### 1 [id number] ####[facility] [address] [place] [address] [facility] Specimen Urine Normal [facility] Comment on above: Performed By: #### 1 [id number] ####[facility] [address] [place] [address] [facility] Type of Service Technical Only Normal [facility] Comment on above: Performed By: #### 1 [id number] ####[facility] [address] [place] [address] CT ABD/PELV WO W CONon 03-20 CT ABD/PELV WO W CON EXAMINATION: CT ABD/PELV WO W CON, 03/19/2022 1:31 PM EST HISTORY: Elfego hematuria COMPARISON: None. TECHNIQUE: CT scan of the abdomen and pelvis was performed without and with IV contrast. CT dose reduction technique was used, including Automated Exposure Control. FINDINGS: LUNG BASES: No visible pulmonary or pleural disease. LIVER: Diffuse hypoattenuation consistent with steatosis. No focal mass BILIARY: No dilatation or calcification. PANCREAS: No lesion, fluid collection, ductal dilatation, or atrophy. SPLEEN: No enlargement or focal lesion. ADRENALS: No mass or enlargement. KIDNEYS: 10 mm hypodensity left mid pole cortex axial image 175, a cyst is favored no focal or enhancing mass identified. No hydronephrosis. BOWEL/MESENTERY: Colonic diverticulosis. Nonobstructive bowel gas pattern. Normal appendix.r 2.3 cm area of oval groundglass density central mesentery axial image 69, nonspecific AORTA/VASCULAR: No aortic aneurysm or dissection. Moderate atherosclerosis. RETROPERITONEUM: No mass or adenopathy. LYMPH NODES: No adenopathy. URINARY BLADDER: No visible focal wall thickening, lesion, or calculus. PELVIC ORGANS: Enlarged heterogeneous prostate gland with calcifications, the prostate gland measures 4.9 cm in diameter ABDOMINAL WALL: No mass or hernia. BONES: No bony lesion or fracture. OTHER: Negative. IMPRESSION: Hepatic steatosis Enlarged heterogeneous prostate gland No focal or enhancing renal mass Electronically authenticated by: JESSICA NAVA Date: 2022-03-20 07:45 Normal [facility] PSA, FREE AND TOTAL RATIOon 03-15-2022 % Free PSA 22.9 % Normal [facility] Comment on above: Result Comment: The table below lists the probability of prostate cancer for men with non-suspicious SIVA results and total PSA between 4 and 10 ng/mL, by patient age (Umair et al, ZACH 1998, 279:1542). % Free PSA 50-64 yr 65-75 yr 0.00-10.00% 56% 55% 10.01-15.00% 24% 35% 15.01-20.00% 17% 23% 20.01-25.00% 10% 20% >25.00% 5% 9% Please note: Umair et al did not make specific recommendations regarding the use of percent free PSA for any other population of men. Performed By: #### P SAFREE #### [facility] [address] [place] [address] Dr. Stanton Lange Prostate specific Ag [Mass/Vol] 3.8 ng/mL Normal 0.0-4.0 [facility] Comment on above: Result Comment: Lavelle TAVERAS methodology. . According to the [employer], Serum PSA should decrease and remain at undetectable levels after radical prostatectomy. The AUA defines biochemical recurrence as an initial PSA value 0.2 ng/mL or greater followed by a subsequent confirmatory PSA value 0.2 ng/mL or greater. Values obtained with different assay methods or kits cannot be used interchangeably. Results cannot be interpreted as absolute evidence of the presence or absence of malignant disease. Performed By: #### P SAFREE #### [facility] [address] [place] [address] Dr. Stanton Lange PSA, Free 0.87 ng/mL Normal N/A [facility] Comment on above: Result Comment: Lavelle garcia ECLIA methodology. Performed By: #### P SAFREE #### [facility] [address] [place] [address] Dr. Stanton Lange CBC AUTO DIFFon 02-26-2022 BASO # 0.1 103/ul Normal 0.0-0.1 [facility] Comment on above: Performed By: #### D ATCBC #### [facility] [address] [place] [address] Dr. Stanton Lange Basophils/100 WBC (Bld) 0.7 % Normal 0.2-2.0 [facility] Comment on above: Performed By: #### D ATCBC #### [facility] [address] [place] [address] Dr. Stanton Lange EO # 0.2 103/ul Normal 0.0-0.7 [facility] Comment on above: Performed By: #### D ATCBC #### [facility] [address] [place] [address] Dr. Stanton Lange Eosinophils/100 WBC (Bld) 3.1 % Normal 0.9-7.0 [facility] Comment on above: Performed By: #### D ATCBC #### [facility] [address] [place] [address] Dr. Stanton Lange Erythrocyte distribution width (RBC) [Ratio] 12.2 % Normal 11.0-15.0 [facility] Comment on above: Performed By: #### D ATCBC #### [facility] [address] [place] [address] Dr. Stanton Lange Hematocrit (Bld) [Volume fraction] 43.9 % Normal 42.0-54.0 [facility] Comment on above: Performed By: #### D ATCBC #### [facility] [address] [place] [address] Dr. Stanton Lange Hemoglobin (Bld) [Mass/Vol] 15.2 g/dL Normal 14.0-18.0 [facility] Comment on above: Performed By: #### D ATCBC #### [facility] [address] [place] [address] Dr. Stanton Lange IG # 0.03 10e3/ul Normal 0.00-0.03 [facility] Comment on above: Performed By: #### D ATCBC #### [facility] [address] [place] [address] Dr. Stanton Lange IG % 0.4 % Normal 0.0-0.5 [facility] Comment on above: Performed By: #### D ATCBC #### [facility] [address] [place] [address] Dr. Stanton Lange LYMPH # 2.9 103/ul Normal 1.2-3.8 [facility] Comment on above: Performed By: #### D ATCBC #### [facility] [address] [place] [address] Dr. Stanton Lange Lymphocytes/100 WBC (Bld) 38.8 % Normal 20.5-60.0 [facility] Comment on above: Performed By: #### D ATCBC #### [facility] [address] [place] [address] Dr. Stanton Lange MCH (RBC) [Entitic mass] 31.9 pg Normal 25.9-34.0 [facility] Comment on above: Performed By: #### D ATCBC #### [facility] [address] [place] [address] Dr. Stanton Lange MCHC (RBC) [Mass/Vol] 34.6 g/dL Normal 29.9-35.2 [facility] Comment on above: Performed By: #### D ATCBC #### [facility] [address] [place] [address] Dr. Stanton Lange MCV (RBC) [Entitic vol] 92.2 fL Normal 80.0-94.0 [facility] Comment on above: Performed By: #### D ATCBC #### [facility] [address] [place] [address] Dr. Stanton Lange MONO # 0.5 103/ul Normal 0.3-0.8 [facility] Comment on above: Performed By: #### D ATCBC #### [facility] [address] [place] [address] Dr. Stanton Lange Monocytes/100 WBC (Bld) 6.3 % Normal 1.7-12.0 [facility] Comment on above: Performed By: #### D ATCBC #### [facility] [address] [place] [address] Dr. Stanton Lange NEUT # 3.8 103/ul Normal 1.4-6.5 [facility] Comment on above: Performed By: #### D ATCBC #### [facility] [address] [place] [address] Dr. Stanton Lange Neutrophils/100 WBC (Bld) 50.7 % Normal 43.0-75.0 [facility] Comment on above: Performed By: #### D ATCBC #### [facility] [address] [address] [address] Stanton Lange Platelet mean volume (Bld) [Entitic vol] 9.7 fL Normal 9.5-13.5 [facility] Comment on above: Performed By: #### D ATCBC #### [facility] [address] [address] [address] Stanton Lange PLT 142 103/ul Critically low 150-450 [facility] Comment on above: Performed By: #### D ATCBC #### [facility] [address] [address] [address] Stanton Lange RBC 4.76 106/ul Normal 4.70-6.10 [facility] Comment on above: Performed By: #### D ATCBC #### [facility] [address] [place] [address] Dr. Stanton Lange WBC 7.5 103/ul Normal 4.0-11.0 [facility] Comment on above: Performed By: #### D ATCBC #### [facility] [address] [place] [address] Dr. Stanton Lange LIANNE- BMP WITH LIPIDon 2021 Anion gap [Moles/Vol] 9.6 mmol/L Normal [facility] Comment on above: Performed By: #### D ATPSA, DATBMP #### [facility] [address] [place] [address] Dr. Stanton Lange Calcium [Mass/Vol] 8.8 mg/dL Normal 8.5-10.1 [facility] Comment on above: Performed By: #### D ATPSA, DATBMP #### [facility] [address] [place] [address] Dr. Stanton Lange Chloride [Moles/Vol] 105 mmol/L Normal 98-107 [facility] Comment on above: Performed By: #### D ATPSA, DATBMP #### [facility] [address] [place] [address] Dr. Stanton Lange Cholesterol [Mass/Vol] 205 mg/dL Critically high <=200 [facility] Comment on above: Performed By: #### D ATPSA, DATBMP #### [facility] [address] [address] [address] Stanton Lange Cholesterol in HDL [Mass/Vol] 38 mg/dL Critically low 40-60 [facility] Comment on above: Performed By: #### D ATPSA, DATBMP #### [facility] [address] [address] [address] Stanton Lange Cholesterol in LDL [Mass/Vol] 90.8 mg/dL Normal [facility] Comment on above: Performed By: #### D ATPSA, DATBMP #### [facility] [address] [place] [address] [address] Stanton Lange CO2 [Moles/Vol] 29.9 mmol/L Normal 21.0-32.0 [facility] Comment on above: Performed By: #### D ATPSA, DATBMP #### [facility] [address] [address] [address] Stanton Lange Creatinine [Mass/Vol] 1.27 mg/dL Normal 0.70-1.30 [facility] Comment on above: Performed By: #### D ATPSA, DATBMP #### [facility] [address] [address] [address] Stanton Lange EGFR-AF EMIRATI >60 Normal >=60 [facility] Comment on above: Performed By: #### D ATPSA, DATBMP #### [facility] [address] [address] [address] Stanton Lange EGFR-NON AF EMIRATI 57 mL/min/1.73m2 Critically low >=60 [facility] Comment on above: Performed By: #### D ATPSA, DATBMP #### [facility] [address] [address] [address] Stanton Lange Glucose [Mass/Vol] 160 mg/dL Critically high 74-106 [facility] Comment on above: Performed By: #### D ATPSA, DATBMP #### [facility] [address] [address] [address] Stanton Lange HDL NORMAL > or = 60 mg/dl - LO W CARDIOVASCULAR RISK <40 mg/dl - HIGH CARDIOVASCULAR RISK Normal [facility] Comment on above: Performed By: #### D ATPSA, DATBMP #### [facility] [address] [address] [address] Stanton Lange LDL CALC NORMAL SEE BELOW Normal [facility] Comment on above: Result Comment: <100 mg/dl OPTIMAL 100 - 129 mg/dl NEAR OR ABOVE OPTIMAL 130 - 159 mg/dl BORDERLINE HIGH 160 - 189 mg/dl HIGH >190 mg/dl VERY HIGH Performed By: #### D ATPSA, DATBMP #### [facility] [address] [address] [address] Stanton Lange Potassium [Moles/Vol] 4.5 mmol/L Normal 3.5-5.1 [facility] Comment on above: Performed By: #### D ATPSA, DATBMP #### [facility] [address] [address] [address] Stanton Lange Sodium [Moles/Vol] 140 mmol/L Normal 136-145 [facility] Comment on above: Performed By: #### D ATPSA, DATBMP #### [facility] [address] [address] [address] Stanton Lange Triglyceride [Mass/Vol] 381 mg/dL Critically high <=150 [facility] Comment on above: Performed By: #### D ATPSA, DATBMP #### [facility] [address] [address] [address] Stanton Lange Urea nitrogen [Mass/Vol] 19.0 mg/dL Critically high 7.0-18.0 [facility] Comment on above: Performed By: #### D ATPSA, DATBMP #### [facility] [address] [address] [address] Stanton Lange Urea nitrogen/Creatinine [Mass ratio] 15.0 mg/mg Normal [facility] Comment on above: Performed By: #### D ATPSA, DATBMP #### [facility] [address] [address] [address] Stanton Lange VLDL CALC 76.2 mg/dL Normal [facility] Comment on above: Performed By: #### D ATPSA, DATBMP #### [facility] [address] [address] [address] Stanton Lange Office Visit (Cardiology)on 10-17-2021 Follow-up visit Diagnoses/Problems Assessed Essential hypertension (401.9) (I10) Hyperlipidemia (272.4) (E78.5) Never smoker Class 1 obesity with body mass index (BMI) of 32.0 to 32.9 in adult (278.00,V85.32) (E66.9,Z68.32) Orders Class 1 obesity with body mass index (BMI) of 32.0 to 32.9 in adult Healthy Weight Tips; Status:Complete - Retrospective Authorization; Done: [id number] Some eating tips that can help you lose weight.; Status:Complete - Retrospective Authorization; Done: [id number] SocHx: Never smoker Tobacco Use Screening; Status:Complete; Done: [id number] Patient Instructions Please bring all medicines, vitamins, and herbal supplements with you when you come to the office. Prescriptions will not be filled unless you are compliant with your follow up appointments or have a follow up appointment scheduled as per instruction of your physician. Refills should be requested at the time of your visit. Follow up in 1 year. I, Elizabeth Davise LPN, am scribing for and in the presence of, Dr. Lanie Cruz MD The provider reviewed the following test(s) and result(s) with the patient: laboratory tests Chief Complaint JOSEY NUNEZ is being seen for an annual follow-up of. Patient is in the office for annual follow-up for hypertension management. In the last year he has not had any cardiac events. 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 He tried to ride his bike when he can but he has not done enough. His weight remains above target and his blood pressure readings have been in the upper normal range. More weight loss, exercise and watching salt intake were recommended to maintain adequate blood pressure readings. His lipids have been followed closely. At the present time no intention to increase his medications. Recent lab data were reviewed. He sees his PCP twice yearly. Assessment/recommenda tions: 1- essential hypertension presently under control medical therapy with no changes needed. His labs from recent testing were reviewed and no concerns noted 2? dyslipidemia , currently on ezetimibe 10 mg daily which has been tolerated. Recent lipid profile was acceptable 3?obesity.encouraged patient to continue to work on low-calorie diet: Regular exercise. 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 Tamsulosin HCl - 0.4 MG Oral CapsuleTake 1 capsule by mouth daily Allergies Medication No Known Drug Allergies Recorded By: Kenia Lowery; 10/17/2021 9:04:52 AM Social History Problems Alcohol use (V49.89) (Z72.89) Caffeine use (V49.89) (Z78.9) Never smoker No illicit drug use Review of Systems Constitutional: not feeling tired. Cardiovascular: no intermittent leg claudication and as noted in HPI. Respiratory: no cough and no shortness of breath. Gastrointestinal: no change in bowel habits and no blood in stools. Integumentary: no skin rashes. Neurological: no seizures and no frequent falls. All other systems have been reviewed and are negative for complaint. Vitals Vital Signs Recorded: [id number] 09:20AMRecorded: [id number] 09:06AM Dknaoavw045, LUE, Zciazoa666, LUE, Sitting Gqixklgjp47, LUE, Ooxwatw54, LUE, Sitting Heart Rate70, L Radial Height5 ft 6 in Mljofr294 lb BMI Rduouqluaf75.12 kg/m2 BSA Calculated2 Tobacco Useb) No PHQ-2 #1. Over the last 2 weeks have you felt down, depressed or hopeless? (If yes, answer PHQ-9 below)No PHQ-2 #2. Over the last 2 weeks have you felt little interest or pleasure in doing things? (If yes, answer PHQ-9 below)No Physical Exam Constitutional: alert and in no acute distress. Neck: neck is supple, symmetric, trachea midline, no masses and no thyromegaly . Pulmonary: no increased work of breathing or signs of respiratory distress and lungs clear to auscultation. Cardiovascular: carotid pulses 2+ bilaterally with no bruit , JVP was normal, no thrills , regular rhythm, normal S1 and S2, no murmurs , pedal pulses 2+ bilaterally and no edema . Abdomen: abdomen non-tender, no masses and no hepatomegaly . Skin: skin warm and dry, normal skin turgor . Psychiatric judgment and insight is normal and oriented to person, place and time . Signatures Electronically signed by : Lanie Cruz MD; Oct 17 2021 3:56PM EST (Author) Normal [employer] Tobacco Screening.on 022 Adult depression screening assessment No [facility] [employer] 250 DO Work Phone: Tobacco use status [facility] b) No [facility] [employer] 250 DO Work Phone: CBC AUTO DIFFon 03-28-2021 BASO # 0.1 103/ul Normal 0.0-0.1 [facility] Comment on above: Performed By: #### D ATCBC #### [facility] [address] [place] [address] Dr. Stanton Lange Basophils/100 WBC (Bld) 0.7 % Normal 0.2-2.0 [facility] Comment on above: Performed By: #### D ATCBC #### [facility] [address] [place] [address] Dr. Stanton Lange EO # 0.3 103/ul Normal 0.0-0.7 [facility] Comment on above: Performed By: #### D ATCBC #### [facility] [address] [place] [address] Dr. Stanton Lange Eosinophils/100 WBC (Bld) 3.3 % Normal 0.9-7.0 [facility] Comment on above: Performed By: #### D ATCBC #### [facility] [address] [place] [address] Dr. Stanton Lange Erythrocyte distribution width (RBC) [Ratio] 12.5 % Normal 11.0-15.0 [facility] Comment on above: Performed By: #### D ATCBC #### [facility] [address] [place] [address] Dr. Stanton Lange Hematocrit (Bld) [Volume fraction] 41.1 % Critically low 42.0-54.0 [facility] Comment on above: Performed By: #### D ATCBC #### [facility] [address] [place] [address] Dr. Stanton Lange Hemoglobin (Bld) [Mass/Vol] 14.1 g/dL Normal 14.0-18.0 [facility] Comment on above: Performed By: #### D ATCBC #### [facility] [address] [place] [address] Dr. Stanton Lange IG # 0.05 10e3/ul Critically high 0.00-0.03 [facility] Comment on above: Performed By: #### D ATCBC #### [facility] [address] [place] [address] Dr. Stanton Lange IG % 0.7 % Critically high 0.0-0.5 [facility] Comment on above: Performed By: #### D ATCBC #### [facility] [address] [place] [address] Dr. Stanton Lange LYMPH # 2.7 103/ul Normal 1.2-3.8 [facility] Comment on above: Performed By: #### D ATCBC #### [facility] [address] [place] [address] Dr. Stanton Lange Lymphocytes/100 WBC (Bld) 34.8 % Normal 20.5-60.0 [facility] Comment on above: Performed By: #### D ATCBC #### [facility] [address] [place] [address] Dr. Stanton Lange MCH (RBC) [Entitic mass] 32.1 pg Normal 25.9-34.0 [facility] Comment on above: Performed By: #### D ATCBC #### [facility] [address] [place] [address] Dr. Stanton Lange MCHC (RBC) [Mass/Vol] 34.3 g/dL Normal 29.9-35.2 [facility] Comment on above: Performed By: #### D ATCBC #### [facility] [address] [place] [address] Dr. Stnaton Lange MCV (RBC) [Entitic vol] 93.6 fL Normal 80.0-94.0 [facility] Comment on above: Performed By: #### D ATCBC #### [facility] [address] [place] [address] Dr. Stanton Lange MONO # 0.5 103/ul Normal 0.3-0.8 [facility] Comment on above: Performed By: #### D ATCBC #### [facility] [address] [place] [address] Dr. Stanton Lange Monocytes/100 WBC (Bld) 5.9 % Normal 1.7-12.0 [facility] Comment on above: Performed By: #### D ATCBC #### [facility] [address] [place] [address] Dr. Stanton Lange NEUT # 4.2 103/ul Normal 1.4-6.5 [facility] Comment on above: Performed By: #### D ATCBC #### [facility] [address] [place] [address] Dr. Stanton Lange Neutrophils/100 WBC (Bld) 54.6 % Normal 43.0-75.0 [facility] Comment on above: Performed By: #### D ATCBC #### [facility] [address] [place] [address] Dr. Stanton Lange Platelet mean volume (Bld) [Entitic vol] 9.7 fL Normal 9.5-13.5 [facility] Comment on above: Performed By: #### D ATCBC #### [facility] [address] [place] [address] Dr. Stanton Lange PLT 155 103/ul Normal 150-450 [facility] Comment on above: Performed By: #### D ATCBC #### [facility] [address] [place] [address] Dr. Stanton Lange RBC 4.39 106/ul Critically low 4.70-6.10 [facility] Comment on above: Performed By: #### D ATCBC #### [facility] [address] [place] [address] Dr. Stanton Lange WBC 7.7 103/ul Normal 4.0-11.0 [facility] Comment on above: Performed By: #### D ATCBC #### [facility] [address] [place] [address] Dr. Stanton Lange LIANNE- BMP WITH LIPIDon 2021 Anion gap [Moles/Vol] 13.3 mmol/L Normal [facility] Comment on above: Performed By: #### D ATPSA, DATBMP #### [facility] [address] [place] [address] Dr. Stanton Lange Calcium [Mass/Vol] 8.6 mg/dL Normal 8.4-10.2 [facility] Comment on above: Performed By: #### D ATPSA, DATBMP #### [facility] [address] [place] [address] Dr. Stanton Lange Chloride [Moles/Vol] 105 mmol/L Normal 98-107 [facility] Comment on above: Performed By: #### D ATPSA, DATBMP #### [facility] [address] [place] [address] Dr. Stanton Lange Cholesterol [Mass/Vol] 202 mg/dL Critically high <=200 [facility] Comment on above: Performed By: #### D ATPSA, DATBMP #### [facility] [address] [place] [address] Dr. Stanton Lange Cholesterol in HDL [Mass/Vol] 37 mg/dL Normal [facility] Comment on above: Performed By: #### D ATPSA, DATBMP #### [facility] [address] [place] [address] Dr. Stanton Lange Cholesterol in LDL [Mass/Vol] 115.0 mg/dL Normal [facility] Comment on above: Performed By: #### D ATPSA, DATBMP #### [facility] [address] [place] [address] Dr. Stanton Lange CO2 [Moles/Vol] 26.6 mmol/L Normal 22.0-30.0 [facility] Comment on above: Performed By: #### D ATPSA, DATBMP #### [facility] [address] [address] [address] Stanton Lange Creatinine [Mass/Vol] 1.32 mg/dL Critically high 0.66-1.25 [facility] Comment on above: Performed By: #### D ATPSA, DATBMP #### [facility] [address] [address] [address] Stanton Lange EGFR-AF EMIRATI >60 Normal >=60 [facility] Comment on above: Performed By: #### D ATPSA, DATBMP #### [facility] [address] [address] [address] Stanton Lange EGFR-NON AF EMIRATI 55 mL/min/1.73m2 Critically low >=60 [facility] Comment on above: Performed By: #### D ATPSA, DATBMP #### [facility] [address] [address] [address] Stanton Lange Glucose [Mass/Vol] 130 mg/dL Critically high 74-106 [facility] Comment on above: Performed By: #### D ATPSA, DATBMP #### [facility] [address] [address] [address] Stanton Lange HDL NORMAL > or = 60 mg/dl - LO W CARDIOVASCULAR RISK <40 mg/dl - HIGH CARDIOVASCULAR RISK Normal [facility] Comment on above: Performed By: #### D ATPSA, DATBMP #### [facility] [address] [address] [address] Stanton Lange LDL CALC NORMAL SEE BELOW Normal [facility] Comment on above: Result Comment: <100 mg/dl OPTIMAL 100 - 129 mg/dl NEAR OR ABOVE OPTIMAL 130 - 159 mg/dl BORDERLINE HIGH 160 - 189 mg/dl HIGH >190 mg/dl VERY HIGH Performed By: #### D ATPSA, DATBMP #### [facility] [address] [address] [address] Stanton Lange Potassium [Moles/Vol] 3.9 mmol/L Normal 3.4-5.0 [facility] Comment on above: Performed By: #### D ATPSA, DATBMP #### [facility] [address] [address] [address] Stanton Lange Sodium [Moles/Vol] 141 mmol/L Normal 137-145 [facility] Comment on above: Performed By: #### D ATPSA, DATBMP #### [facility] [address] [address] [address] Stanton Lange Triglyceride [Mass/Vol] 250 mg/dL Critically high <=150 [facility] Comment on above: Performed By: #### D ATPSA, DATBMP #### [facility] [address] [place] [address] Dr. Stanton Lange Urea nitrogen [Mass/Vol] 26.0 mg/dL Critically high 9.0-20.0 [facility] Comment on above: Performed By: #### D ATPSA, DATBMP #### [facility] [address] [place] [address] Dr. Stanton Lange Urea nitrogen/Creatinine [Mass ratio] 19.7 mg/mg Normal [facility] Comment on above: Performed By: #### D ATPSA, DATBMP #### [facility] [address] [place] [address] Dr. Stanton Lange VLDL CALC 50.0 mg/dL Normal [facility] Comment on above: Performed By: #### D ATPSA, DATBMP #### [facility] [address] [place] [address] Dr. Stanton Lange Vital Signs Date Time Vital Sign Value Performing Clinician Facility 03-03-2023 10:51-0500 Blood Pressure Location [facility] 03-03-2023 10:51-0500 Diastolic blood pressure 87 mm[Hg] [facility] 12-11-2023 10:51-0500 Heart rate 73 /min [facility] 03-03-2023 10:51-0500 Respiratory rate 16 /min [facility] 03-03-2023 10:51-0500 Systolic blood pressure 125 mm[Hg] [facility] 02-18-2023 10:30-0500 Body height 167.64 cm Xavi Ball Other [employer] [facility] [employer] Other 02-18-2023 10:30-0500 Body mass index (BMI) [Ratio] 32.08 kg/m2 Xavi Ball Other [employer] Other 02-18-2023 10:30-0500 Body weight 90.18 kg Xavi Ball Other [employer] Other 02-18-2023 10:30-0500 Diastolic blood pressure 73 mm[Hg] Xavi Ball Other [employer] Other 02-18-2023 10:30-0500 Respiratory rate 12 /min Xavi Ball Other [employer] Other 02-18-2023 10:30-0500 Systolic blood pressure 144 mm[Hg] Xavi Ball Other [employer] Other 10-08-2022 08:56-0400 Body height 167.64 cm Xavi E Ball Work Phone: [facility]Thc[facility]ab[facility] 250 DO Work Phone: 10-08-2022 08:56-0400 Body mass index (BMI) [Ratio] 31.47 kg/m2 Xavi E Ball Work Phone: [facility]Dwevqqndeg-Ncrwryw y 250 DO Work Phone: 10-08-2022 08:56-0400 Body surface area Derived from formula 1.98 m2 Xavi E Ball Work Phone: ML[facility]Lwfbftthua-Erfifaf y 250 DO Work Phone: 10-08-2022 08:56-0400 Body weight 88.45 kg Xavi E Ball Work Phone: QW-Mwhzpabgxl-Mmsrihs y 250 DO Work Phone: 10-08-2022 08:56-0400 Diastolic blood pressure 74 mm[Hg] Xavi E Ball Work Phone: YN-Bgnmjzwibr-Owhopdx y 250 DO Work Phone: 10-08-2022 08:56-0400 Heart rate 76 /min Xavi E Ball Work Phone: EH-Zoinvqorvb-Viffica y 250 DO Work Phone: 10-08-2022 08:56-0400 Systolic blood pressure 128 mm[Hg] Xavi E Ball Work Phone: XD-Gmbyqspwha-Izhmhmz y 250 DO Work Phone: 09-09-2022 09:38-0400 Blood Pressure Location [facility] 09-09-2022 09:38-0400 Diastolic blood pressure 87 mm[Hg] [facility] 09-09-2022 09:38-0400 Heart rate 77 /min [facility] 09-09-2022 09:38-0400 Respiratory rate 16 /min [facility] 09-09-2022 09:38-0400 Systolic blood pressure 129 mm[Hg] [facility] 04-29-2022 09:17-0500 Diastolic blood pressure 100 mm[Hg] [facility] 04-29-2022 09:17-0500 Mean blood pressure 123 mm[Hg] [facility] 04-29-2022 09:17-0500 Systolic blood pressure 169 mm[Hg] [facility] 04-29-2022 09:08-0500 Blood Pressure Location [facility]ph[facility]y [facility] 04-29-2022 09:08-0500 Diastolic blood pressure 107 mm[Hg] [facility] 04-29-2022 09:08-0500 Heart rate 82 /min [facility]ph[facility]y [facility] 04-29-2022 09:08-0500 Respiratory rate 16 /min [facility] 04-29-2022 09:08-0500 Systolic blood pressure 117 mm[Hg] [facility] 10-17-2021 09:20-0400 Diastolic blood pressure 75 mm[Hg] Xavi Hensley Work Phone: [facility] 250 DO Work Phone: 10-17-2021 09:20-0400 Systolic blood pressure 136 mm[Hg] Xavi Garcia Ball Work Phone: [facility] 250 DO Work Phone: 10-17-2021 09:06-0400 Body height 167.64 cm Xavi Garcia Ball Work Phone: [facility] 250 DO Work Phone: 10-17-2021 09:06-0400 Body mass index (BMI) [Ratio] 32.12 kg/m2 Xavi Garcia Ball Work Phone: [facility] 250 DO Work Phone: 10-17-2021 09:06-0400 Body surface area Derived from formula 2 m2 Xavi Garcia Ball Work Phone: [facility] 250 DO Work Phone: 10-17-2021 09:06-0400 Body weight 90.27 kg Xavi Garcia Ball Work Phone: [facility] 250 DO Work Phone: 10-17-2021 09:06-0400 Diastolic blood pressure 86 mm[Hg] Xavi Garcia Ball Work Phone: [facility] 250 DO Work Phone: 10-17-2021 09:06-0400 Heart rate 70 /min Xavi Garcia Ball Work Phone: [facility] DO Work Phone: 10-17-2021 09:06-0400 Systolic blood pressure 142 mm[Hg] Xavi Garcia Ball Work Phone: [facility] 250 DO Work Phone: Encounters Encounter Date Encounter Type Care Provider Facility Start: 04-21-2023 ambulatory [facility] ty:[facility] Start: 03-31-2023 ambulatory [facility]ri ty:[facility] Start: 03-27-2023 ambulatory [facility] Facili ty:[id number] Start: 03-19-2023 ambulatory [facility]ph [facility]ri ty:[facility] Start: 03-03-2023 End: 03-04-2023 ambulatory [facility] Facility:[facility] Start: 03-03-2023 End: 03-03-2023 Patient encounter procedure [facility] Start: 02-18-2023 End: 02-18-2023 ambulatory Xavi Hensley Other [employer] Other Start: 02-18-2023 Patient encounter procedure Xavi Hensley [facility] Start: 10-08-2022 Office outpatient vi sit 15 minutes Xavi Garcia Ayden Work Phone: [facility]Hvnprjoyfc-Fdweqrxy 250 DO Work Phone: Start: 10-08-[address] Lanie Cruz Facility: Start: 09-09-2022 End: 09-10-2022 ambulatory [facility] Facility:[facility] Start: 09-09-2022 End: 09-09-2022 Patient encounter procedure [facility] Start: 05-21-2022 End: 05-22-2022 ambulatory [facility] Facility:[facility] Start: 05-21-2022 End: 05-21-2022 Patient encounter procedure [facility] Start: 04-29-2022 End: 04-30-2022 ambulatory [facility]oseph [facility] Facility:[facility] Start: 04-29-2022 End: 04-29-2022 Patient encounter procedure Yoseph CHA [facility] Start: 03-29-2022 ambulatory Yoseph [facility]A Facility :[facility] [place] Start: 03-19-2022 End: 03-20-[address] XAVI HENSLEY Facility:[facility] Start: 03-14-2022 End: 03-15-[address] XAVI HENSLEY Facility:[facility] Start: 03-02-2022 Encounter for genera l adult medical examination without abnormal findings DR SIMPSON LISTED REQUEST [facility] Start: 02-26-2022 End: 02-27-[address] XAVI HENSLEY Facility:[facility] Start: 02-26-2022 End: 02-27-2022 Encounter for general adult medical examination without abnormal findings DR XAVI HENSLEY Facility:[facility] Start: 11-14-2021 End: 11-15-2021 ambulatory EVA OLVERA Facility:[facility] Start: 10-17-2021 Office outpatient vi sit 25 minutes Xavi Hensley Work Phone: [facility] 250 DO Work Phone: Start: 10-17-[address] Xavi Hensley Facility: Start: 03-28-2021 End: 03-29-[address] SIMPSON LISTED REQUEST Facility:[facility] Start: 01-29-2018 Patient encounter procedure DELA CRUZCLAY ALTAMIRANOIM Facility:[id number] Procedures Date Procedure Procedure Detail Performing Clinician Start: 04-29-2022 Cystoscopy Yoseph LUNDBERG Start: 02-26-[address] SATINDER HENSLEY Comment on above: Performed By: #### D ATPSA, DATBMP #### [facility] [address] [place] [address] Dr. Stanton Lange Start: 03-28-[address] SATINDER HENSLEY Comment on above: Performed By: #### D ATPSA, DATBMP #### [facility] [address] [place] [address] Dr. Stanton Lange Start: 03-24-2018 Total colonoscopy Alex Hensley Work Phone: Dental implant procedure Fortino Hensley Work Phone: Hernia repair Xavi bright Work Phone: Herniated structure (morphologic abnormality) Yoseph CHA Tonsillectomy Xavi bright Work Phone: Tonsillectomy Yoseph CHA Plan of Treatment Date Care Activity Detail Author Start: 10-08-2023 FUV, Provider: Lanie Cruz, Status: Pen, Time: 8:30 AM FUV, Provider: Lanie Cruz, Status: Pen, Time: 8:30 AM [facility] 250 DO Work Phone: Start: 10-08-2022 FUV, Provider: Lanie Cruz, Status: Pen, Time: 9:00 AM FUV, Provider: Lanie Cruz, Status: Pen, Time: 9:00 AM [facility] 250 DO Work Phone: Immunizations Immunization Date Immunization Notes Care Provider katie 02-23-2021 Pfizer-BioNTech COVI D-19 Vacc 30 MCG/0.3ML Intramuscular Suspension Xavi Hensley Work Phone: [facility] 07-14-2020 Pfizer-BioNTech COVI D-19 Vacc 30 MCG/0.3ML Intramuscular Suspension Xavi Garcia [employer] Work Phone: [facility] 06-23-2020 Pfizer-BioNTech COVI D-19 Vacc 30 MCG/0.3ML Intramuscular Suspension Xavi Hensley Work Phone: [facility] 06-02-2020 Pfizer-BioNTech COVI D-19 Vacc 30 MCG/0.3ML Intramuscular Suspension Xavi Hensley Work Phone: [facility] 03-24-2007 influenza virus vacc ine, unspecified formulation Xavi Hensley Work Phone: [facility] 250 DO Work Phone: Payers Date Payer Category Payer Self-pay [id number] 1961 Unknown [id number] 1960 Unknown [id number] 1958 Unknown [id number] 1958 Unknown [id number] [id number] 1958 Unknown [id number] [id number] 1958 Unknown [id number] [id number] 1958 Unknown [id number] [id number] 1958 Unknown [id number] [id number] 1958 Unknown [id number] [id number] 1958 Unknown [id number] [id number] 1958 Unknown [id number] [id number] 1958 Unknown [id number] [id number] 1958 Unknown [id number] [id number] 1958 Unknown [id number] [id number] Medicare [id number] 2. [id number] Unknown [facility] [employer] Unknown [id number] [id number] Unknown [id number] [id number] Social History Date Type Detail Facility Alcohol use Alcohol use -[facility] 250 DO Work Phone: Start: 04-29-2022 Tobacco smoking status Never s moked tobacco (finding) [facility] Tobacco smoking status Never [facility] Sex Assigned At Male [facility] Functional Status Date Assessment Result Facility 03-03-2023 Functional Status N/A [facility] 09-09-2022 Functional Status N/A [facility] 05-14-2022 Functional Status N/A [facility] 04-29-2022 Functional Status N/A [facility] Clinical Notes 11-15-2021 to 03-03-2023 Note Date & Type Note Facility 03-03-2023 Hospital Discharge instructions Patient Education 03/03/2023 11:43:49 Transurethral Resection of the Prostate Transurethral Resection of the Prostate Transurethral resection of the prostate (TURP) is the removal, or resection, of part of the prostate tissue. This procedure is done to treat an enlarged prostate gland (benign prostatic hyperplasia). The goal of TURP is to remove enough prostate tissue to allow for a normal flow of urine. The procedure will allow you to empty your bladder more completely when you urinate so that you can urinate less often. In a transurethral resection, a thin telescope with a light, a camera, and an electric cutting edge (resectoscope) is passed through the urethra and into the prostate. The opening of the urethra is at the end of the penis. Tell a health care provider about: Any allergies you have. All medicines you are taking, including vitamins, herbs, eye drops, creams, and oeos-hum-otvduay medicines. Any problems you or family members have had with anesthetic medicines. Any bleeding problems you have. Any surgeries you have had. Any medical conditions you have. Any prostate infections you have had. What are the risks? Generally, this is a safe procedure. However, problems may occur, including: Infection. Bleeding. Allergic reactions to medicines. Blood in the urine (hematuria). Damage to nearby structures or organs. Other problems may occur, but they are rare. They include: Dry ejaculation, or having no semen come out during orgasm. Erectile dysfunction, or being unable to have or keep an erection. Scarring that leads to narrowing of the urethra. This narrowing may block the flow of urine. Inability to control when you urinate (incontinence). Deep vein thrombosis. This is a blood clot that can develop in your leg. TURP syndrome. This can happen when you lose too much sodium during or after the procedure. Some signs and symptoms of this condition include: ?Weakness. ?Headaches. ?Nausea or vomiting. ?Muscle cramping. What happens before the procedure? When to stop eating and drinking Follow instructions from your health care provider about what you may eat and drink before your procedure. These may include: 8 hours before your procedure ?Stop eating most foods. Do not eat meat, fried foods, or fatty foods. ?Eat only light foods, such as toast or crackers. ?All liquids are okay except energy drinks and alcohol. 6 hours before your procedure ?Stop eating. ?Drink only clear liquids, such as water, clear fruit juice, black coffee, plain tea, and sports drinks. ?Do not drink energy drinks or alcohol. 2 hours before your procedure ?Stop drinking all liquids. ?You may be allowed to take medicines with small sips of water. If you do not follow your health care provider's instructions, your procedure may be delayed or canceled. Medicines Ask your health care provider about: Changing or stopping your regular medicines. This is especially important if you are taking diabetes medicines or blood thinners. Taking medicines such as aspirin and ibuprofen. These medicines can thin your blood. Do not take these medicines unless your health care provider tells you to take them. Taking xoiq-jei-xqvwsgy medicines, vitamins, herbs, and supplements. Surgery safety Ask your health care provider what steps will be taken to help prevent infection. These steps may include: Removing hair at the surgery site. Washing skin with a germ-killing soap. Taking antibiotic medicine. General instructions Do not use any products that contain nicotine or tobacco for at least 4 weeks before the procedure. These products include cigarettes, chewing tobacco, and vaping devices, such as e-cigarettes. If you need help quitting, ask your health care provider. If you will be going home right after the procedure, plan to have a responsible adult: ?Take you home from the hospital or clinic. You will not be allowed to drive. ?Care for you for the time you are told. What happens during the procedure? An IV will be inserted into one of your veins. You will be given one or more of the following: ?A medicine to help you relax (sedative). ?A medicine to make you fall asleep (general anesthetic). ?A medicine that is injected into your spine to numb the area below and slightly above the injection site (spinal anesthetic). Your legs will be placed in foot rests (stirrups) so that your legs are apart and your knees are bent. The resectoscope will be passed through your urethra to your prostate. Parts of your prostate will be resected using the cutting edge of the resectoscope. Fluid will be passed to rinse out the cut tissues (irrigation). The resectoscope will be removed. A small, thin tube (catheter) will be passed through your urethra and into your bladder. The catheter will drain urine into a bag outside of your body. The procedure may vary among health care providers and hospitals. What happens after the procedure? Your blood pressure, heart rate, breathing rate, and blood oxygen level will be monitored until you leave the hospital or clinic. You will be given fluids through the IV. The IV will be removed when you start eating and drinking normally. You may have some pain. Pain medicine will be available to help you. You will have a catheter draining your urine. ?You may have blood in your urine. Your catheter may be kept in until your urine is clear. ?Your urinary drainage will be monitored. If necessary, your bladder may be rinsed out (irrigated) through your catheter. You will be encouraged to walk around as soon as possible. You may have to wear compression stockings. These stockings help to prevent blood clots and reduce swelling in your legs. If you were given a sedative during the procedure, it can affect you for several hours. Do not drive or operate machinery until your health care provider says that it is safe. Summary Transurethral resection of the prostate (TURP) is the removal (resection) of part of the prostate tissue. The goal of this procedure is to remove enough prostate tissue to allow for a normal flow of urine. Follow instructions from your health care provider about taking medicines and about eating and drinking before the procedure. This information is not intended to replace advice given to you by your health care provider. Make sure you discuss any questions you have with your health care provider. Document Revised: 12/04/2021 Document Reviewed: 12/04/2021 [employer] Patient Education 2022 [employer]. 03/03/2023 11:43:45 Benign Prostatic Hyperplasia Benign Prostatic Hyperplasia Benign prostatic hyperplasia (BPH) is an enlarged prostate gland that is caused by the normal aging process. The prostate may get bigger as a man gets older. The condition is not caused by cancer. The prostate is a walnut-sized gland that is involved in the production of semen. It is located in front of the rectum and below the bladder. The bladder stores urine. The urethra carries stored urine out of the body. An enlarged prostate can press on the urethra. This can make it harder to pass urine. The buildup of urine in the bladder can cause infection. Back pressure and infection may progress to bladder damage and kidney (renal) failure. What are the causes? This condition is part of the normal aging process. However, not all men develop problems from this condition. If the prostate enlarges away from the urethra, urine flow will not be blocked. If it enlarges toward the urethra and compresses it, there will be problems passing urine. What increases the risk? This condition is more likely to develop in men older than 50 years. What are the signs or symptoms? Symptoms of this condition include: Getting up often during the night to urinate. Needing to urinate frequently during the day. Difficulty starting urine flow. Decrease in size and strength of your urine stream. Leaking (dribbling) after urinating. Inability to pass urine. This needs immediate treatment. Inability to completely empty your bladder. Pain when you pass urine. This is more common if there is also an infection. Urinary tract infection (UTI). How is this diagnosed? This condition is diagnosed based on your medical history, a physical exam, and your symptoms. Tests will also be done, such as: A post-void bladder scan. This measures any amount of urine that may remain in your bladder after you finish urinating. A digital rectal exam. In a rectal exam, your health care provider checks your prostate by putting a lubricated, gloved finger into your rectum to feel the back of your prostate gland. This exam detects the size of your gland and any abnormal lumps or growths. An exam of your urine (urinalysis). A prostate specific antigen (PSA) screening. This is a blood test used to screen for prostate cancer. An ultrasound. This test uses sound waves to electronically produce a picture of your prostate gland. Your health care provider may refer you to a specialist in kidney and prostate diseases (urologist). How is this treated? Once symptoms begin, your health care provider will monitor your condition (active surveillance or watchful waiting). Treatment for this condition will depend on the severity of your condition. Treatment may include: Observation and yearly exams. This may be the only treatment needed if your condition and symptoms are mild. Medicines to relieve your symptoms, including: ?Medicines to shrink the prostate. ?Medicines to relax the muscle of the prostate. Surgery in severe cases. Surgery may include: ?Prostatectomy. In this procedure, the prostate tissue is removed completely through an open incision or with a laparoscope or robotics. ?Transurethral resection of the prostate (TURP). In this procedure, a tool is inserted through the opening at the tip of the penis (urethra). It is used to cut away tissue of the inner core of the prostate. The pieces are removed through the same opening of the penis. This removes the blockage. ?Transurethral incision (TUIP). In this procedure, small cuts are made in the prostate. This lessens the prostate's pressure on the urethra. ?Transurethral microwave thermotherapy (TUMT). This procedure uses microwaves to create heat. The heat destroys and removes a small amount of prostate tissue. ?Transurethral needle ablation (TUNA). This procedure uses radio frequencies to destroy and remove a small amount of prostate tissue. ?Interstitial laser coagulation (ILC). This procedure uses a laser to destroy and remove a small amount of prostate tissue. ?Transurethral electrovaporization (TUVP). This procedure uses electrodes to destroy and remove a small amount of prostate tissue. ?Prostatic urethral lift. This procedure inserts an implant to push the lobes of the prostate away from the urethra. Follow these instructions at home: Take tghe-wvl-tavlqip and prescription medicines only as told by your health care provider. Monitor your symptoms for any changes. Contact your health care provider with any changes. Avoid drinking large amounts of liquid before going to bed or out in public. Avoid or reduce how much caffeine or alcohol you drink. Give yourself time when you urinate. Keep all follow-up visits. This is important. Contact a health care provider if: You have unexplained back pain. Your symptoms do not get better with treatment. You develop side effects from the medicine you are taking. Your urine becomes very dark or has a bad smell. Your lower abdomen becomes distended and you have trouble passing urine. Get help right away if: You have a fever or chills. You suddenly cannot urinate. You feel light-headed or very dizzy, or you faint. There are large amounts of blood or clots in your urine. Your urinary problems become hard to manage. You develop moderate to severe low back or flank pain. The flank is the side of your body between the ribs and the hip. These symptoms may be an emergency. Get help right away. Call 911. Do not wait to see if the symptoms will go away. Do not drive yourself to the hospital. Summary Benign prostatic hyperplasia (BPH) is an enlarged prostate that is caused by the normal aging process. It is not caused by cancer. An enlarged prostate can press on the urethra. This can make it hard to pass urine. This condition is more likely to develop in men older than 50 years. Get help right away if you suddenly cannot urinate. This information is not intended to replace advice given to you by your health care provider. Make sure you discuss any questions you have with your health care provider. Document Revised: 09/26/2021 Document Reviewed: 09/26/2021 [employer] Patient Education 2022 [employer]. Follow Up Care 09/09/2022 10:15:32 With:AVE MARTINEZ, Yoseph Gomez, URL Address: [facility] [address], [place] [address]- When: Unknown Comments:Schedule TURP [facility] 02-18-2023 Evaluation note Encounter Date Diagnosis Assessment Notes Jan, Type 2 diabetes mellitus with hyperglycemia (ICD-10 - E11.65) This patient is following a comprehensive diabetic treatment plan. They are checking their feet daily for calluses and nonhealing ulcers. They are being seen for yearly dilated eye examinations. Goals: SBP less than 130, LDL less than 100, FBS less than 140, A1C less than 7%. They are checking their BS daily, will which are reviewed at the office visit. Continue regular routine monitoring of A1C,] Microalbumin, Dilated eye exam and Foot exam Jan, Medicare annual wellness visit, initial (ICD-10 - Z00.00) Personalized health advice was given to the beneficiary including a written plan for screenings discussed and provided. Advanced care planning reviewed and/or information given as requested. Additional counseling was provided here today in regards to, [ ]. The above visit was performed by [ ], under direct supervision of [ ]. Document reviewed and amended by provider signed below. Jan, Primary hypertension (ICD-10 - I10) This patient is instructed to consume a healthy, low-fat, low-salt diet. They are also encouraged to continue exercise to achieve/maintain a normal BMI. Jan, Nocturia (ICD-10 - R35.1) Jan, Benign prostatic hyperplasia with lower urinary tract symptoms (ICD-10 - N40.1) Jan, Screening PSA (prostate specific antigen) (ICD-10 - Z12.5) PSA stable Need to double due to finasteride use. f/u Jan, Colon cancer screening (ICD-10 - Z12.11) Due for Colonoscopy in 2023 Denies change in appetite or bowel habits. Denies melena or hematochezia Jan, Hypercholesteremia (ICD-10 - E78.00) Instructed on diet and exercise with continued statin therapy.Discussed the beneficial effects of lowering cholesterol in reducing the risk for cerebrovascular and cardiovascular disease. Jan, Other Instructed on diet and exercise with continued statin therapy.Discussed the beneficial effects of lowering cholesterol in reducing the risk for cerebrovascular and cardiovascular disease. [employer] Other 06-19-2023 Hospital Discharge instructions Patient Education 09/09/2022 08:14:53 Prostate Cancer Screening Prostate Cancer Screening Prostate cancer screening is testing that is done to check for the presence of prostate cancer in men. The prostate gland is a walnut-sized gland that is located below the bladder and in front of therectum in males. The function of the prostate is to add fluid to semen during ejaculation. Prostatecancer is one of the most common types of cancer in men. Who should have prostate cancer screening? Screening recommendations vary based on age and other risk factors, as well as between the professional organizations who make the recommendations. In general, screening is recommended if: You are age 50 to 70 and have an average risk for prostate cancer. You should talk with your healthcare provider about your need for screening and how often screening should be done. Because most prostate cancers are slow growing and will not cause , screening in this age group is generally reserved for men who have a 10- to 15-year life expectancy. You are younger than age 50, and you have these risk factors: ?Having a father, brother, or uncle who has been diagnosed with prostate cancer. The risk is higherif your family member's cancer occurred at an early age or if you have multiple family members withprostate cancer at an early age. ?Being a male who is Black or is of Chris or sub-Saharan descent. In general, screening is not recommended if: You are younger than age 40. You are between the ages of 40 and 49 and you have no risk factors. You are 70 years of age or older. At this age, the risks that screening can cause are greater than the benefits that it may provide. If you are at high risk for prostate cancer, your health care provider may recommend that you have screenings more often or that you start screening at a younger age. How is screening for prostate cancer done? The recommended prostate cancer screening test is a blood test called the prostate-specific antigen(PSA) test. PSA is a protein that is made in the prostate. As you age, your prostate naturally produces more PSA. Abnormally high PSA levels may be caused by: Prostate cancer. An enlarged prostate that is not caused by cancer (benign prostatic hyperplasia, or BPH). This condition is very common in older men. A prostate gland infection (prostatitis) or urinary tract infection. Certain medicines such as male hormones (like testosterone) or other medicines that raise testosterone levels. A rectal exam may be done as part of prostate cancer screening to help provide information about the size of your prostate gland. When a rectal exam is performed, it should be done after the PSA level is drawn to avoid any effect on the results. Depending on the PSA results, you may need more tests, such as: A physical exam to check the size of your prostate gland, if not done as part of screening. Blood and imaging tests. A procedure to remove tissue samples from your prostate gland for testing (biopsy). This is the only way to know for certain if you have prostate cancer. What are the benefits of prostate cancer screening? Screening can help to identify cancer at an early stage, before symptoms start and when the cancer can be treated more easily. There is a small chance that screening may lower your risk of dying from prostate cancer. The chance is small because prostate cancer is a slow-growing cancer, and most men with prostate cancer from a different cause. What are the risks of prostate cancer screening? The main risk of prostate cancer screening is diagnosing and treating prostate cancer that would never have caused any symptoms or problems. This is called overdiagnosisand overtreatment. PSA screening cannot tell you if your PSA is high due to cancer or a different cause. A prostate biopsy is the only procedure to diagnose prostate cancer. Even the results of a biopsy may not tell you if your cancer needs to be treated. Slow-growing prostate cancer may not need any treatment other than monitoring, so diagnosing and treating it may cause unnecessary stress or other side effects. Questions to ask your health care provider When should I start prostate cancer screening? What is my risk for prostate cancer? How often do I need screening? What type of screening tests do I need? How do I get my test results? What do my results mean? Do I need treatment? Where to find more information [employer]: www.cancer.org [employer]: www.auanet.org Contact a health care provider if: You have difficulty urinating. You have pain when you urinate or ejaculate. You have blood in your urine or semen. You have pain in your back or in the area of your prostate. Summary Prostate cancer is a common type of cancer in men. The prostate gland is located below the bladder and in front of the rectum. This gland adds fluid to semen during ejaculation. Prostate cancer screening may identify cancer at an early stage, when the cancer can be treated more easily and is less likely to have spread to other areas of the body. The prostate-specific antigen (PSA) test is the recommended screening test for prostate cancer, butit has associated risks. Discuss the risks and benefits of prostate cancer screening with your health care provider. If you are age 70 or older, the risks that screening can cause are greater than the benefits that it may provide. This information is not intended to replace advice given to you by your health care provider. Make sure you discuss any questions you have with your health care provider. Document Revised: 09/03/2021 Document Reviewed: 09/03/2021 [employer] Patient Education 2022 [employer]. Follow Up Care 05/21/2022 10:07:20 With:AVE MARTINEZ, Yoseph Gomez, URL Address: [facility] [address] [place] [address]- When: Unknown [facility] 02-28-2023 Note [id number]:[id number] 05-21-2022 Hospital Discharge instructions Patient Education 05/21/2022 10:06:15 [facility] - Cystoscopy Discharge Instructions (CUSTOM) Cystoscopy Voiding after the procedure: there may be some pain, burning, urgency, frequency and blood tinged urine following the procedure. These symptoms usually resolve within 2-5 days. Drink the amount of fluid it takes to keep the urine pink to yellow or clear in color. Drinking enough water and fluids will help to ease any discomfort after your procedure. If you are having problems that seem out of the ordinary, please call. If unable to contact your physician and you feel it is an emergency, go to the nearest emergency room or call 911 Diet you may resume your normal diet. Activity you may resume your normal activities Call if you have a fever over 100 degrees. Follow Up Care 04/29/2022 10:12:39 With:Yoseph CHA Address: [facility] [address] [place] [address]- Business (1) When:09/18/2022 10:06:03 [facility]28[facility] NoteCustom Cystoscopy ? Voiding after the procedure: there may be some pain, burning, urgency, frequency and blood tingedurine following the procedure. These symptoms usually resolve within 2-5 days. Drink the amount of fluid it takes to keep the urine pink to yellow or clear in color. Drinking enough water and fluids will help to ease any discomfort after your procedure. ? If you are having problems that seem out of the ordinary, please call. ? If unable to contact your physician and you feel it is an emergency, go to the nearest emergency room or call 911 ? Diet ? you may resume your normal diet. ? Activity ? you may resume your normal activities ? Call if you have a fever over 100 degrees.[facility] 04-29-2022 NoteChief Complaint Referral *Elevated PSA, Gross Hematuria, BPH HPI Staff Evaluation requested by Dr Fortino Hensley due to gross hematuria, BPH & elevated PSA. Pt is a new pt, never before seen in our office. *Pt did not give urine specimen. CT done 03/19/22 PSA done 02/26/22- 5.32 PSA F/T done 03/14/22- 3.8 & 22.9% PSA 09/08/19- 3.71 PSA 01/22/18- 2.79 PSA 05/15/16- 2.37 Has been taking Tamsulosin 0.4mg QD for years. As well as Cialis 10mg 2x/wk (due to bladder problems 10yrs ago- leaky valve -states related to ED) Visible blood in urine. Intermittent. First noticed after Thanksgiving. Very small amount at each time, at beginning of stream. Denies Family Hx of Bladder. Never smoked. Has been having prostate inflammation intermittently for past 3yrs. Increased pressure in prostate area. Elevated PSA-Was given abx prior to PSA F/T. Denies family Hx of Prostate Cancer. History of Present Illness I have reviewed and verified the staff HPI to be accurate for this encounter. Review of Systems PHQ Score Initial Depression Screen Score: 0 ROS - Provider Constitutional: denies weight loss, denies hot flashes. Eyes: denies eye problems. Gastrointestinal: denies nausea, denies vomiting. Cardiovascular: denies chest pain or angina. Integumentary: no dryness Musculoskeletal: denies musculoskeletal symptoms. ENMT: denies otolaryngeal symptoms. Respiratory: no shortness of breath. Heme/Lymph: denies easy bleeding tendency, denies easy bruising tendency. Psychiatric: no confusion, no anxiety. Genitourinary: denies dysuria, denies hematuria, denies discharge, denies urinary frequency, deniesurinary hesitancy, denies nocturia, denies incontinence, denies genital sores, denies decreased libido, and denies erectile dysfunction. Physical Exam Vitals & Measurements HR: 82(Peripheral) RR: 16 BP: 169/100 HT: 66 in HT: 168 cm WT: 86 kg WT: 189.2 lb BMI: 30.47 General Appearance: alert, no distress, well nourished, well developed male. Head: normocephalic . Eyes: normal orbit and globe. ENMT: normal examination of external ears. Chest: Lungs CTA, respirations non labored. Cardiovascular: regular rate and rhythm. Abdomen: soft, non distended, no tenderness, no mass or organomegaly, no hernia. Genitourinary: normal scrotum, normal testes, normal urethra, normal epididymis, normal vas deferens/spermatic cord. Flank Pain: none. Bladder: nonpalpable. Penis: normal shaft, normal glans. Prostate: normal prostate, estimated weight 40 gms, no hard nodule observed. Lymph Nodes: unremarkable palpation of the cervical area. Skin: warm, dry, no bruising. Psychiatric: cooperative, affect appropriate for age, normal judgement, euthymic mood. Assessment/Plan 1. Gross hematuria (R31.0: Gross hematuria) Visible blood seen around thanksgiving. Pt states that blood was at the start of his stream. it is intermittent. Discussed options. The patient is aware that a distinct etiology of the hematuria may not be clear upon conclusion of the workup. Will initiate hematuria workup to include upper urinary tract imaging, as well as evaluation of the urinary cells with urine cytology and possible a FISH test. A cystoscopy will be scheduled to rule out lower urinary tract pathology. The rationale for this workup has been discussed, and all questions have been answered. Informed consent will be obtained. Prophylacticantibiotics will be given. The risks and benefits for cystoscopy have been discussed. The risks include bleeding, infection, and irritation of the bladder and urinary channel, among others. The patient, after being informed ofprocedural details and after questions have been answered, wishes to proceed. Full informed consenthas been obtained. Will order Local anesthesia. 2. BPH (benign prostatic hyperplasia) (N40.0: Benign prostatic hyperplasia without lower urinary tract symptoms) Tamsulosin 0.4mg QD for years. As well as Cialis 10mg 2x/wk (due to bladder problems 10yrs ago- leaky valve - states related to ED) Overall pt states that his stream is steady, feels empty when he is done voiding, , denies any urgency or frequency but does complain of Dysuria. Will schedule a Cystoscopy to evaluate his enlarged Prostate and hematuria Pt will start Flomax 0.4mg BID. Will start pt on Dutasteride 0.5mg QD to help with his sxs. 3. Elevated PSA (R97.20: Elevated prostate specific antigen [PSA]) PSA F/T done 03/14/22- 3.8 & 22.9% PSA done 02/26/22- 5.32 PSA 09/08/19- 3.71 PSA 01/22/18- 2.79 PSA 05/15/16- 2.37 PSA elevation is likely due to Chronic infection in the prostate. Will continue to monitor. 4. Prostatitis (N41.9: Inflammatory disease of prostate, unspecified) Pt states that he feels pressure in his groin and at times urethral irritation. Pt was treated in the past with ABX for what he describes as prostate inflammation. Pt states that after he finished his ABX the sxs did not go away. Will start pt on Doxycycline (more content not included)...[facility]Result Comment: Electronically Signed By: Yoseph CHA MD\.br\Date and Time Signed: 04/29/22 10:04 EST\.br\Electronically Co- Signed By: Zoe Haynes MA\.br\Date and Time Co-Signed: 04/29/22 10:00 EST 04-29-2022 Hospital Discharge instructions Patient Education 04/29/2022 08:11:46 Hematuria, Adult Hematuria, Adult Hematuria is blood in the urine. Blood may be visible in the urine, or it may be identified with a test. This condition can be caused by infections of the bladder, urethra, kidney, or prostate. Otherpossible causes include: Kidney stones. Cancer of the urinary tract. Too much calcium in the urine. Conditions that are passed from parent to child (inherited conditions). Exercise that requires a lot of energy. Infections can usually be treated with medicine, and a kidney stone usually will pass through your urine. If neither of these is the cause of your hematuria, more tests may be needed to identify the cause of your symptoms. It is very important to tell your health care provider about any blood in your urine, even if it ispainless or the blood stops without treatment. Blood in the urine, when it happens and then stops and then happens again, can be a symptom of a very serious condition, including cancer. There is no pain in the initial stages of many urinary cancers. Follow these instructions at home: Medicines Take tpkf-dbv-datxgee and prescription medicines only as told by your health care provider. If you were prescribed an antibiotic medicine, take it as told by your health care provider. Do notstop taking the antibiotic even if you start to feel better. Eating and drinking Drink enough fluid to keep your urine clear or pale yellow. It is recommended that you drink 3 4 quarts (2.8 3.8 L) a day. If you have been diagnosed with an infection, it is recommended that you drink cranberry juice in addition to large amounts of water. Avoid caffeine, tea, and carbonated beverages. These tend to irritate the bladder. Avoid alcohol because it may irritate the prostate (men). General instructions If you have been diagnosed with a kidney stone, follow your health care provider's instructions about straining your urine to catch the stone. Empty your bladder often. Avoid holding urine for long periods of time. If you are female: ?After a bowel movement, wipe from front to back and use each piece of toilet paper only once. ?Empty your bladder before and after sex. Pay attention to any changes in your symptoms. Tell your health care provider about any changes or any new symptoms. It is your responsibility to get your test results. Ask your health care provider, or the department performing the test, when your results will be ready. Keep all follow-up visits as told by your health care provider. This is important. Contact a health care provider if: You develop back pain. You have a fever. You have nausea or vomiting. Your symptoms do not improve after 3 days. Your symptoms get worse. Get help right away if: You develop severe vomiting and are unable take medicine without vomiting. You develop severe pain in your back or abdomen even though you are taking medicine. You pass a large amount of blood in your urine. You pass blood clots in your urine. You feel very weak or like you might faint. You faint. Summary Hematuria is blood in the urine. It has many possible causes. It is very important that you tell your health care provider about any blood in your urine, even ifit is painless or the blood stops without treatment. Take vmlj-dco-ofvhngq and prescription medicines only as told by your health care provider. Drink enough fluid to keep your urine clear or pale yellow. This information is not intended to replace advice given to you by your health care provider. Make sure you discuss any questions you have with your health care provider. Document Released: 03/10/2006 Document Revised: 08/04/2019 Document Reviewed: 04/12/2017 [employer] Patient Education 2020 [employer] 24[employer]. Follow Up Care 03/29/2022 09:51:12 With:AVE MARTINEZ, Yoseph Gomez, URL Address: [facility] [address], [place] [address]- [phone] When: Unknown [facility] 08-25-2022 NotePROCEDURE: XR FOOT RT MIN 3 VIEWS HISTORY: Pain in right foot ; chronic medial right heel pain COMPARISON: None. FINDINGS: BONES:Small calcaneal plantar spur. Mild degenerative enthesopathic spurring at the Achilles tendon insertion into the calcaneus. No fracture, dislocation, or significant degenerative joint disease. SOFT TISSUES:0.5 mm metallic foreign body which may be on the skin surface or deep to the skin surface at the base of the interspace between the second and third toes. EFFUSION:None visible. OTHER: Negative. IMPRESSION: 1. Mild calcaneal degenerative enthesopathic spurring of uncertain clinical significance. 2. Radiopaque foreign body in the interspace between the second third toes versus subcutaneous location. Electronically authenticated by: ROOSEVELT HUITRON Date: 2021-11-15 08:11[facility] Future App[facility]ments Appointment Date:05/14/2022 11:15:00 AM Scheduled Provider: Location:[facility] Appointment Type:Urology CALL PAT FT Appointment Date:05/21/2022 10:00:00 AM Scheduled Provider: Location:[facility] Appointment Type:Urology FT Diagnostic Tests Pending * [facility] Fish and Urine Cyto ([facility]) 04/29/22 [facility] evaluation + Plan note Future Appointments Appointment Date:09/09/2022 09:30:00 AM Scheduled Provider:Yoseph CHA MD Location:[facility] Future Appointments Appointment Date:03/14/2023 09:30:00 AM Scheduled Provider:Yoseph CHA MD Location:[facility] Appointment Type:URO Office Visit [facility] evaluation + Plan note Future Appointments Appointment Date:03/19/2023 09:00:00 AM Scheduled Provider: Location:[facility] Appointment Type:URO Nurse Visit Appointment Date:03/31/2023 11:00:00 AM Scheduled Provider: Location:[facility] Appointment Type:URO Nurse Visit Appointment Date:04/21/2023 09:30:00 AM Scheduled Provider:Yoseph CHA MD Location:[facility] Appointment Type:URO Office Visit [facility] History general Narrative - Reported* Type Description Date Medical History Mixed hyperlipidemia Medical History Essential (primary) hypertension Medical History Type 2 diabetes david itus with hyperglycemia Surgical History Hernia Repair Surgical History Colonoscopy ,2007,2010 ,2013 Surgical History Tonsillectomy Hospitalization History see surgical hx [facility] Other Hospital course Narrative No data available for this section [facility] progress note No data available for this section [facility] Summary Purpose Family History No Family History Records FoundUnknown Family Member Name Dates Details Family history of pulmonary hypertension: Mother(V17.49, Z82.49) Status:Active Unknown Family Member Name Dates Details Family history of pulmonary hypertension: Mother(V17.49, Z82.49) Status:Active Advance Directives No Advanced Directives Records FoundNo Advanced Directives Records FoundNo Advanced Directives Records FoundNo Advanced Directives Records FoundNo Advanced Directives Records Found Chief Complaint * JOSEY NUNEZ is being seen for an annual follow-up of. * Patient is in the office for annual follow-up for hypertension management. In the last year he has not had any cardiac events. 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 He tried to ride his bike when he can but he has not done enough. His weight remains above target and his blood pressure readings have been in the upper normal range. More weight loss, exercise and watching salt intake were recommended to maintain adequate blood pressure readings. His lipids have been followed closely. At the present time no intention to increase his medications. Recent lab data were reviewed. He sees his PCP twice yearly. * Assessment/recommendations: * 1- essential hypertension presently under control medical therapy with no changes needed. His labs from recent testing were reviewed and no concerns noted * 2 dyslipidemia , currently on ezetimibe 10 mg daily which has been tolerated. Recent lipid profile was acceptable * 3 obesity.encouraged patient to continue to work on low-calorie diet: Regular exercise. * Patient will follow-up with any office in 9 months * JOSEY NUNEZ is being seen for an annual follow-up of. * Patient is in the office for follow-up for the problems noted below. Since he was last seen in the office year ago he has had no trouble whatsoever he has no side effect of medications and denies anypalpitations dyspnea orthopnea PND or lower extremity edema. He follows with urology and is stable on medical therapy his PSA was tested recently and has been on target. He takes 2 medication for hisprostate disease. Has not seen his PCP recently and is scheduled to have his blood work in 4 months. He is a prince and maintains active lifestyle. Apart from class I obesity physical examination wasnormal. * Assessment/recommendations: * 1- essential hypertension presently under control medical therapy with no changes needed. Patient was wondering if his medication need to be reduced if he loses weight. I did indicate to him that if that happens we will address it at the time and he can see me sooner than scheduled to address this issue. He is very conscientious about his health. * 2 dyslipidemia , currently on ezetimibe 10 mg daily which has been tolerated. Blood work is scheduled in 4 months. * 3 obesity.encouraged patient to continue to work on low-calorie diet: Regular exercise. * 4 BPH on medical therapy followed by urology and stable * Patient will follow-up with any office in 1 year * JOSEY NUNEZ is being seen for an annual follow-up of. * Patient is in the office for follow-up for the problems noted below. Since he was last seen in the office year ago he has had no trouble whatsoever he has no side effect of medications and denies anypalpitations dyspnea orthopnea PND or lower extremity edema. He follows with urology and is stable on medical therapy his PSA was tested recently and has been on target. He takes 2 medication for hisprostate disease. Has not seen his PCP recently and is scheduled to have his blood work in 4 months. He is a prince and maintains active lifestyle. Apart from class I obesity physical examination wasnormal. * Assessment/recommendations: * 1- essential hypertension presently under control medical therapy with no changes needed. Patient was wondering if his medication need to be reduced if he loses weight. I did indicate to him that if that happens we will address it at the time and he can see me sooner than scheduled to address this issue. He is very conscientious about his health. * 2 dyslipidemia , currently on ezetimibe 10 mg daily which has been tolerated. Blood work is scheduled in 4 months. * 3 obesity.encouraged patient to continue to work on low-calorie diet: Regular exercise. * 4 BPH on medical therapy followed by urology and stable * Patient will follow-up with any office in 1 year Additional Source Comments (unrecognized sect ion and content) No Status Records FoundNo Status Records FoundNo Status Records FoundNo Status Records FoundNo Status Records Found INFORMATION SOURCE (unrecogn ized section and content) DATE CREATED AUTHOR 03/01/2018 [facility] DATE CREATED AUTHOR AUTHOR'S ORGANIZ ATION 03/22/2022 [facility] DATE CREATED AUTHOR AUTHOR'S ORGANIZ ATION 10/09/2022 [facility] DATE CREATED AUTHOR AUTHOR'S ORGANIZ ATION 10/09/2022 [employer] DATE CREATED AUTHOR AUTHOR'S ORGANIZ ATION 03/09/2023 [facility] Patient Care team informatio n (unrecognized section and content) Personnel Name: XAVI HENSLEY DO Address: Address: [address] [place] [address] Personnel Name: XAVI HENSLEY DO Address: Address: [address] [place] [address] Personnel Name: XAVI HENSLEY DO Address: Address: [address] [place] [address] Personnel Name: XAVI HENSLEY DO Address: Address: [address] [place] [address] REASON FOR VISIT (unrecogniz ed section and content) Wellness FOR RECORDS PERTAINING TO PATIENTS WHO ARE OR HAVE BEEN ENROLLED IN A CHEMICAL DEPENDENCY/SUBSTANCEABUSE PROGRAM, SOME INFORMATION MAY BE OMITTED. This clinical summary was aggregated from multiple sources. Caution should be exercised in using it in the provision of clinical care. This summary normalizes information from multiple sources, and as a consequence, information in this document may materially change the coding, format and clinical context of patient data. In addition, data may be omitted in some cases. CLINICAL DECISIONS SHOULD BE BASED ON THE PRIMARY CLINICAL RECORDS. [facility]. provides no warranty or guarantee of the accuracy or completeness of information in this document.
--- NOTE | 2023-03-14 08:35 | ECG_ITS ---
[facility] Test Date: 2023-03-14 Pat Name: JOSEY NUNEZ Department: Room: - Gender: Male Pediatric Radiologist: : 1960 Requested By: BRISSA DORADO Order Number: [id number] Reading MD: NYDIA MONTAGUE Measurements Intervals [place] Rate: 65 P: 18 LA: 149 QRS: 42 QRSD: 102 T: 33 QT: 370 QTc: 386 Interpretive Statements SINUS RHYTHM No previous ECG available for comparison Electronically Signed On 03-16-2023 10:48:36 EST by NYDIA MONTAGUE
[2023-03-14 09:20] LABS: INR 0.94
== END 2023-03-14 07:58 | disposition home or self-care (01) ==
LOC: PST 07:58
PROVIDERS: PCP Internal Medicine; Visit Provider Urology
DX: Z01.810 Encounter for preprocedural cardiovascular examination (principal); Z01.812 Encounter for preprocedural laboratory examination; N40.0 Benign prostatic hyperplasia without lower urinary tract symptoms; R31.9 Hematuria, unspecified
CPT/HCPCS: 85610; 85730; 93005

== ENCOUNTER 2023-03-27 10:50 | Day surgery (SDC) | payer MEDICARE, SELFPAY ==
[2023-03-14 08:46] VITALS: BP 138/83; PULSE 68; RESP 18; TEMP 36.3; O2SAT 97; BMI 32.3
[2023-03-27] VITALS (11 sets, daily range): BP systolic 120–159; BP diastolic 62–89; PULSE 70–98; RESP 14–20; TEMP 36.3–36.6; O2SAT 90–97
--- OUTSIDE RECORDS SUMMARY | 2023-03-27 10:53 | XMS_ITS | CCD ---
Author Name Unknown Address [address] [place] [address] Organization [facility] Care Team Providers Care [place] Department Supervisor Name Role Phone LANIE CRUZ BENJAMIN E Unavailable Unavailable Xavi Hensley Unavailable Unavailable Unavailable AYDEN, DR STAFFORD Primary Care Unavailable REQUEST, DR SIMPSON LISTED Admitting Unavaila ble REQUEST, DR SIMPSON LISTED Attending Unavaila ble AYDEN, DR STAFFORD Consulting Unavailable REQUEST, DR SIMPSON LISTED Admitting Unavaila ble REQUEST, DR SIMPSON LISTED Attending Unavaila ble AYDEN, DR STAFFORD Primary Care Unavailable REQUEST, DR SIMPSON LISTED Consulting Unavaila ble MAY, EVA Cano Admitting Unavailable MAY, EVA Cano Attending Unavailable AYDEN, DR STAFFROD Primary Care Unavailable ZIEBER, DR ROOSEVELT Gomez Consulting Unavailable HIGHLLAKSHMI, EVA Cano Consulting Unavailable AYDEN, DR STAFFORD Admitting Unavailable AYDEN, DR STAFFORD Attending Unavailable BALL, DR STAFFORD Primary Care Unavailable BALL, DR STAFFORD Consulting Unavailable AYDEN, DR STAFFORD Admitting Unavailable BALL, DR STAFFORD Attending Unavailable BALL, DR STAFFORD Primary Care Unavailable BALL, DR STAFFORD Consulting Unavailable WEST, DR JESSICA Wren Consulting XAVI Jc Primary Care Physician [phone] Ayden, Dr. Xavi Finney Primary Care Landon Cruz, Dr. Lanie Carlton Referring Radhika vailable Cruz, Dr. Lanie Carlton Attending Radhika vailable Anthony, Dr. Lanie Carlton Attending Radhika vailable Ayden, Dr. Xavi Finney Primary Care Landon Cruz, Dr. Lanie Carlton Referring Radhika Xavi Garcia Unavailable Yoseph CHA Referring Unavailable Yoseph CHA Admitting Unavailable Yoseph CHA Attending Unavailable Yoseph CHA Attending Unavailable Kelsea Griffith Attending Unavailable Yoseph CHA Attending Unavailable Yoseph CHA Attending Unavailable AVE, Yoseph Gomez Attending Unavailable XAVI HENSLEY Referring Unavailable CHA, Yoseph Gomez Referring Unavailable AVE, Yoseph Gomez Attending Unavailable AVE, Yoseph Gomez Attending Unavailable AVE, Yoseph Gomez Attending Unavailable Allergies Allergy Classification Reported Allergen(s) Allergy Type Date of Onset Reaction(s) Facility (1 source) AmLODIPine & Diet Manage Prod *CALCIUM CHANNEL BLO Propensity to adverse reactions Unknown [facility] [employer] Other (1 source) Statins Depletion *DIETARY PRODUCTS/DIETAR Y MANAGE Propensity to adverse reactions Unknown [facility] [employer] Other (1 source) No Known Medication Allergies; Translations: [No Known Medication Allergies] Propensity to adverse reactions (disorder) [facility] Repository Medications Current Medications Medication Drug Class(es) Dates Sig (Normalized) Sig (Original) Ascorbic Acid (6 sources) Vitamin C Start: 04-29-2022 Vitamin C Daily, Refills(s) 0 Start Date: 04/29/22 Status: Ordered carvedilol 6.25 mg oral tablet (10 sources) alpha-Adrenergic Zen, beta-Adrenergic Zen Start: 04-29-2022 carvedilol 6.25 mg Tab Refills(s) 0 Start Date: 04/29/22 Status: Ordered Centrum Silver (6 sources) Start: 04-29-2022 Centrum Silver Oral, Daily, Refill(s) 0 Start Date: 04/29/22 Status: Ordered ciprofloxacin 500 mg oral tablet (3 sources) Quinolone Antimicrobial Start: 03-03-2023 End: 03-24-2023 take 1 tablet by mouth twice daily Cipro 500 mg Tab 500 mg = 1 tab(s), Oral, BID, X 3 week(s), # 42 tab(s), Refills(s) 0, Pharmacy: [facility] #[id number], 168, cm, 03/03/23 11:05:00 EST, Height/Length Dosing, [...] day(s), # 60 cap(s), Refills(s) 1, Pharmacy: [facility] #[id number], 168, cm, 05/14/22 10:37:00 EST, Height/Length Dosing, 86, kg, 04/29/22 9:16:00 EST, Weight Dosing Start Date: 05/21/22 Stop Date: 07/20/22 Status: Ordered Start: 04-29-2022 End: 05-20-2022 take 1 capsule by mouth twice daily doxycycline hyclate 100 mg Cap 100 mg = 1 cap(s), Oral, BID, X 3 week(s), # 42 cap(s), Refills(s) 0, Pharmacy: [facility] #[id number], 168, cm, 04/29/22 9:16:00 EST, Height/Length Dosing, 86, kg, 04/29/22 9:16:00 EST, Weight Dosing Start Date: 04/29/22 Stop Date: 05/20/22 Status: Ordered dutasteride 0.5 mg oral capsule (9 sources) 5-alpha Reductase Inhibitor Start: 04-29-2022 take 1 capsule by mouth once daily dutasteride 0.5 mg Cap 0.5 mg = 1 cap(s), Oral, Daily, # 90 cap(s), Refills(s) 3, Pharmacy: [facility], 168, cm, 05/14/22 10:37:00 EST, Height/Length Dosing, 86, kg, 04/29/22 9:16:00 EST, Weight Dosing Start Date: 08/08/22 Status: Ordered Avodart CAPS AYESHA E 1 CAPSULE Daily Quantity: 0 Refills: 0 Ordered: 08-Oct-2022 DO Active ezetimibe 10 mg oral tablet (10 sources) Dietary Cholesterol Absorption Inhibitor Start: 04-29-2022 ezetimibe 10 mg Tab Refills(s) 0 Start Date: 04/29/22 Status: Ordered Fish Oils (6 sources) Start: 04-29-2022 Fish Oil Oral, Refill(s) 0 Start Date: 04/29/22 Status: Ordered ibuprofen 800 mg oral tablet (7 sources) Nonsteroidal Anti-inflammatory Drug Start: 04-29-2022 ibuprofen 800 mg Tab Refills(s) 0 Start Date: 04/29/22 Status: Ordered Start: 03-20-2022 take 1 tablet by david every eight hours at mealtime as needed Ibuprofen 800 MG 1 tablet with food or milk as needed Orally every 8 hrs for 30 days Feb, Active lisinopril 20 mg oral tablet (10 sources) Angiotensin Converting Enzyme Inhibitor Start: 04-29-2022 lisinopril 20 mg Tab Refills(s) 0 Start Date: 04/29/22 Status: Ordered MAGNESIUM GLUCONATE (6 sources) Start: 04-29-2022 magnesium gluconate Oral, BID, Refills(s) 0 Start Date: 04/29/22 Status: Ordered Prevagen (6 sources) Start: 04-29-2022 take 1 ug by mouth once daily Prevagen mcg, Oral, Daily, Refills(s) 0 Start Date: 04/29/22 Status: Ordered tadalafil 10 mg oral tablet (7 sources) Phosphodiesterase 5 Inhibitor Start: 04-29-2022 Cialis 10 mg Tab 10 mg = 1 tab(s), Oral, MonThu, PRN for erectile dysfunction, Refills(s) 0 Start Date: 04/29/22 Status: Ordered Start: 12-04-2021 Cialis 20MG Ci kate 20MG, 1 (one) Tablet Tablet Tablet PRN ED # 32, 12/04/2021, Ref. x3. Active Oral PRN ED for 0 Nov, Not-Taking tamsulosin hydrochloride 0.4 mg oral capsule (11 sources) alpha-Adrenergic Zen Start: 01-17-2022 tamsu losin 0.4 mg Cap Daily, Refills(s) 0 Start Date: 04/29/22 Status: Ordered take 1 capsule by mo [facility] every twelve hours Tamsulosin HCl [...] empty stomach followed in 30 minutes by bkt # 0, 11/28/2020, No Refill. Active Oral daily on empty stomach [facility], Not-Taking Fish Oil [...] unspecified hyperlipidemia] Onset: 03-24-1961 Chronic Essential hypertension (12 sources) Essential hypertension; Translations: [Unspecified essential hypertension] 04-29-2022 Chronic Essential hypertension (1 source) Essential hypertension Onset: 01-29-2018 Genitourinary symptoms and ill-defined conditions (15 sources) Gross hematuria; Translations: [Blood in urine] Onset: 03-19-2022 Episodic Hyperplasia of prostate (13 sources) Benign prostatic hypertrophy without outflow obstruction; Translations: [Benign prostatic hyperplasia without lower urinary tract symptoms] Onset: 04-29-2022 Chronic Inflammatory conditions of male genital organs (8 sources) Prostatitis; Translations: [Inflammatory disease of prostate, [...] conditions (not mental disorders or infectious disease) (16 sources) Elevated prostate specific antigen [PSA]; Translations: [Raised prostate specific antigen] Onset: 03-14-2022 Episodic Unclassified (2 sources) Other chest pain / R07.89(ICD-9) Onset: 01-29-2018 Unclassified (1 source) Dyspnea, unspecified / R06.00(ICD-9) Onset: 01-29-2018 Unclassified (1 source) Obesity, unspecified / E66.9(ICD-9) Onset: 01-29-2018 Unclassified (1 source) Pure hypercholesterolemia, unspecified / E78.00(ICD-9) Onset: 01-29-2018 Unclassified (3 sources) Finding of sensation of bladder 03-03-2023 Past [...] Results Test Name Value Interpretation Reference Range Facil ity Ambulatory Visit Summaryon 1 05-20-2022 Ambulatory Visit Summary JOSEY NUNEZ :1960 Visit Date:03/19/2023 Ambulatory Visit Instructions Your Care Team Attending Physician - AVE MARTINEZ, Yoseph Gomez Primary Care Physician - XAVI HENSLEY DO This Is Your Medications List ascorbic acid (Vitamin C) carvedilol (carvedilol 6.25 mg Tab) cholecalciferol (Prevagen) ciprofloxacin (Cipro 500 mg Tab) dutasteride (dutasteride 0.5 mg Cap) ezetimibe (ezetimibe 10 mg Tab) ibuprofen (ibuprofen 800 mg Tab) lisinopril (lisinopril 20 mg Tab) magnesium gluconate multivitamin with minerals (Centrum Silver) omega-3 polyunsaturated fatty acids (Fish Oil) tadalafil (Cialis 10 mg Tab) tamsulosin (tamsulosin 0.4 mg Cap) Procedures Performed Cystoscopy (04/29/2022), Hernia, Tonsillectomy. What to do next Scheduled Follow-Up Appointments Friday 11:00 AM EST With: Where: [facility] Normal [address] [place] [address]- \.br\ Medications\.br\ What How Much When Instructions\.br\ Unchanged ascorbic acid (Vitamin C) Every day\.br\ Unchanged carvedilol (carvedilol 6.25 mg Tab)\.br\ Unchanged cholecalciferol (Prevagen) By Mouth Every day\.br\ Unchanged ciprofloxacin (Cipro 500 mg Tab) 1 Tablets By Mouth 2 times a day Duration: 3 Weeks\.br\ Unchanged dutasteride (dutasteride 0.5 mg Cap) 1 Capsules By Mouth Every day\.br\ Unchanged ezetimibe (ezetimibe 10 mg Tab)\.br\ Unchanged ibuprofen (ibuprofen 800 mg Tab)\.br\ Unchanged lisinopril (lisinopril 20 mg Tab)\.br\ Unchanged magnesium gluconate By Mouth 2 times a day\.br\ Unchanged multivitamin with minerals (Centrum Silver) By Mouth Every day\.br\ Unchanged omega-3 polyunsaturated fatty acids (Fish Oil) By Mouth\.br\ Unchanged tadalafil (Cialis 10 mg Tab) 1 Tablets By Mouth Friday & as needed for for erectile dysfunction\.br\ Unchanged tamsulosin (tamsulosin 0.4 mg Cap) Every day\.br\ Allergies\.br\ No Known Medication Allergies\.br\ Problems\.br\ Ongoing - Any problem that you are currently receiving treatment for.\.br\ BPH (benign prostatic hyperplasia)\.br\ Elevated PSA\.br\ Feeling of incomplete bladder emptying\.br\ Gross hematuria\.br\ Hypertension\.br\ Prostatitis\.br\ Patient Survey\.br\ You may receive a survey via text or e-mail asking about your office visit. Please share your experience with us by completing your survey. We appreciate your feedback and thank you for choosing us for your care.\.br\ \.br\ [facility] ECG 12-Leadon 03-18-2023 ECG 12-Lead [id number] 79#1.00TIFF Normal [facility] Lab Reportson 03-18-2023 Lab Reports [id number] AB#1.00TIFF Normal [facility] Lab Reports [id number] 39#1.00TIFF Normal [facility] Lab Reportson 03-07-2023 Lab Reports [id number]#1.00TIFF Normal [facility] Consent for Procedure/Surger yon 03-04-2023 Consent for Procedure/Surgery [id number]#1.00TIFF Normal [facility] Lab Reportson 03-04-2023 Lab Reports [id number] 8F#1.00TIFF [facility] Ambulatory Visit Summaryon 1 05-04-2022 Ambulatory Visit Summary JOSEY NUNEZ :1960 Visit Date:03/03/2023 Ambulatory Visit Instructions Your Diagnosis BPH (benign prostatic hyperplasia) Elevated PSA Feeling of incomplete bladder emptying Prostatitis Your Care Team Attending Physician - AVE MARTINEZ, Yoseph Gomez Primary Care Physician - XAVI HENSLEY DO [...] 9:00 AM EST Where: [facility] Patient Educationon 03-03-20 23 Patient Education Urology Transurethral Resection of the [...] including vitamins, herbs, eye drops, creams, and wayz-qut-kgffyau medicines. ? Any problems you or family [...] tells you to take them. ? Taking fggr-fxy-qkfefxs medicines, vitamins, herbs, and supplements. Surgery safety [...] health care (more content not included)... Normal [facility] Urology Office/Clinic Noteon 03-03-2023 Urology Office/Clinic [...] that this started just before . Pt continues use of Dutasteride 0.5mg QD, [...] that this started just before Thanksgi. Pt was unable to void for UA [...] cath today. (more content not included)... Normal [facility] Comment on above: Result Comment: Elec [...] Weight Tips; Status:Complete - Retrospective Authorization; Done: [id number] Some eating tips that can help you lose weight.; Status:Complete - Retrospective Authorization; Done: [id number] Essential hypertension Renew: Carvedilol 6.25 MG Oral Tablet; Take 1 tablet twice a day Renew: Lisinopril 20 MG Oral Tablet; TAKE 1 TABLET BY MOUTH DAILY SocHx: Never smoker Tobacco Use Screening; Status:Complete; Done: [id number] Patient Instructions Please bring all medicines, vitamins, [...] as scheduled Same meds Chief Complaint JOSEY ENRIQUE is being seen for an annual follow-up [...] class I obesity physical examination was normal. Assessment/recommen dations: 1- essential hypertension presently under control medical [...] Blood work is scheduled in 4 months. 3?obesity.encourage d patient to continue to work on low-calorie [...] negative for complaint. Vitals Vital Signs Recorded: 08Oct2022 08:56AM Heart Rate76, R Radial Pgsddzpt427, RUE, Sitting Svihtzjvs36, RUE, Sitting Height5 ft 6 in Gwerht905 lb BMI Ethbxbgfja13.47 kg/m2 BSA Calculated1.98 Tobacco Useb) No PHQ-2 [...] pedal p (more content not included)... Normal [facility] Tobacco Screening.on 023 Adult depression screening assessment No [facility] DO Work Phone: Tobacco use status [facility] b) No [facility] 250 DO Work Phone: Ambulatory Visit Summaryon [...] Schedule the Following Appointments Follow Up with AVE MARTINEZ, Yoseph Gomez, URL When: Where: [facility] [address] [place] [address]- Medications What How Much When Instructions Unchanged [...] that i (more content not included)... Normal [facility] Patient Educationon 09-10-19 Patient Education Oncology [...] Where to find more information ? [employer]: www.cancer.org ? [employer]: www.auanet.org Contact a health care [...] adds flu (more content not included)... Normal [facility] Urology Office/Clinic Noteon 09-09-2022 Urology Office/Clinic [...] next encounter. Follow-up With When Contact Information AVE MARTINEZ, Yoseph Gomez, URL [facility] [address] [place] [address]- Additional Instructions: 6 mos PSA FT from PCP in [place] Patient Education Prostate Cancer Screening I, Carmen [...] Date Status (more content not included)... Normal [facility] Comment on above: Result Comment: Elec tronically Signed By: Yoseph CHA MD\.br\Date and Time Signed: 09/09/22 10:13 EDT\.br\Electronically Co-Signed By: Carmen Markham\.br\Date and Time Co-Signed: 09/09/22 10:10 EDT Coding Summary.on 05-22-2022 Coding Summary. [id number] JRj2zJx+PGhlYWQ+PE1 EJARdR22ggOMppK1JY6 tORI3ZJVYWKJIZRL4ZH E4jsOU4AGkkZ6BpsfRf QrlfdVRwZU65HNi3FVA 5iRgvAZhtjK6nrEHqM8 u0JdVmYW04rZ78RTwbQ MAnSrZ1HnXsbxtuaNAn C3auApUbbRPlQsp+PHR hYmxlIHdpZHRoPScxMD VqEzEvjByoNP3lZg8jU GVyLWNvbGxhcHNlOiBj h8nyIQFfGLyyFV4ctEh pN4WhlQN4NLPbl6s8Pg 48dHI+ROItEXT7aLsgX Sogm139VlHja3asRZB8 bCWoITseKRB8Q35uq7J 1BNCoABFpGLG9sEA1nI 0yeWvqtshtJ4XouPRiH eT6FUQ1iJWbkC4reNtp tdmbeI5eFsu+V36GZV3 VUOESXL9DChq8H5XyFl wvdHI+DE04DRKdWA39h BXsoMKtv1cocSk2TkDj PFKwZXM1dIigKQjcg6X cUILnT94vfBCrl6N9FV HhbVurlLFmMrBemWR6o T4fTDudvryab5utsfzb Zenwq6phxx19cL52W91 cXXzsMQPvLGK6ZSViGV AojAquqy9mgQ7zRp1+I Nztp9zmh9nufQj5DjXb UETsooJvtAdcLKC8c3S eWh00W6ZoeVfco3GlQh e5oz79cSUof1D4kGX6F IxiHMWclT4xFUpdNaI4 KNVdWlHjoM85uGEpWSs uXr7rtEooqKlhCV3oKF AflkruGJXrsH2vHZUov RZneKtgUV1vOFLvcven j309RoQiSEB0HVOjnXW aQ2UnaW5aBfYyBEWxHS ClQ8YbkUZnYDyyZ927D RvqHpP4TLIcsxXgX2Kp TQWufJnrHwG6u7V5Va1 Cx3SwtafhPHB5MAnjZZ MoByHuSoUzJvJ8U9SjV vc2WXWrxSqkWV0zT7Ki QQXqodlqojuyxBO8UFR ePIQefK31nSXnFQenSp 8wa0A1z246DWKuCJWym Q61Ef7fcDpyEVMmhJOB aY2lrvjez3ylclehRfI nOBPkHVp6PWo9SBPfsG idVvNtYRG1NnN6XDD9m DHcmJ8ysRhystehyD8q Oyc+Q39qdL7oCYU6KLH 1ssxpGLCebaBiVI21EV 51B6TlQiuhuCXbgQT+P WKatiUsxYpyWV8iVyFv d8fwf0MhOHvqH5UpFQA cETbmUvu3RXNdHUN9nV H2qC7rJETsWKbrb7Z5v IH3Y0NzfnLqal8au1xb IJHzXMllK13ihFOar0L 9QHRqiTM5MNCexCpzSr MqdB46Ywy+PGNvbGdyb 0WrMcihx0wpn9kwcIq6 IjMwJSIgdmFsaWduPSJ 6g1VpHw92I49oPHstIC RoPSIxNSUiIHZhbGlnb x1aiF6uIa3+PGNvbCB3 nIZ4pX6aGHQzEbB1FFs aU009YvPfrXDeIzhfj6 cpn8tpsKx1EvJoVUKvs pCxtBvoZQL8f3ZtTp23 R63sRBlxJGNkHTPyNFL cQOFyzNpavn9xgF4yRt 8+VO9uj7mhzb26eR19j HI+JVTxMIB3hXktVEow DCNdsV7vVCjeIiK2WQW oZdTruC36sTAbLQnfFo 5xaWmbrRibFB1rCPMch ijmu505AqNga8ytGBHa mUCuIVraCMF5K43te7Q 5QIAkEATsSNE1rJB0bU 1hbGlnbjogbGVmdDsgd aMezPhlXZavPXrmN560 IHRvcDsnPlBhdGllbnQ yOlBvEJw8G0MlGuf6PS NcrJjpVN5jnKSlQDnsK z0nnVdnoNriTH2uPEFt htdjz952BzXot7qlWHY ulQEtUZzrYNP1S55vu9 X5VNQkLXJvEYH2rPB4g N2cxIrpczkgwJBhlWry rrJaqJimONypQQrhB85 6IHRvcDsnPkJpcnRoIE NqeIW5WX54EC68yNGci 3O0cGK0F1FrSSQyyvyv wjotmKN9FCYtTOHeyF9 4My6ydEkuDx8aMPPnPL O3MRTqvIKoY6AidT8aE iXqBLAvBVWyV0VsfPZj IFukD572DRgtQwL8ZOO nfyXlL7KnBKCknSpkFc A0e4E4Zv7CQ9H1RP86C L54bWBan6P3kXC6W0Ak XVPtoxqiixqvbYA1UVU jJZTmcW28Wb8waQydAq 6vFFBhBJL3RJRmyEPuY 8NxzX6yDgAbGSMoOIIx J9KueONoEEmjO281FSm nNgV4FJJevvHkB9RbGS EogXkkQsJ8z2J6Ol4YY Iz0PL59ZR82mXUwo5R0 bOQ7M5AoKWNnitfbwum kbQK6UUYdTFZyhZ91Cp 3nqLkqKd8kVXZeFFH7L RCwlFQbO8KmsG6oMkHi KQYtFRYyU4ZekAMcTFr qI868ZPxwIkW4GRCenx EjM9KmUMCxtNycIaV2x 5E6Vv5PAHYrIP59AFZ0 jPX5OO94CZ54I5GfWlc vdGFibGU+PHRhYmxlIH dpZHRoPScxMDAlJyBzd WteLO4oEd9vRHPjVMGv zAniuQHpZxEas1zwLIL eBQwaNM1ssIudV5UkgL K5PZOgf3o1Wq63S77xB 3JvdXA+KYIqfWX0xGH6 yX2wAgYpOeU3TWmjJ07 0ScYnwTDaUikla6lyt1 gyxGt9TeT1HCRvfuIal TjfKNN7k4BlGk55T00e IHdpZHRoPSIxNSUiIHZ xqTkkhz5ihT8pNg2+PG SizIA5oNP2mP0wSbRxA aP6KHhiR818VnJmqKYv Xlyqg1cah6hncKo5NyI aPQMnilEqhMphSNU6m2 DjIv74Z0IkuAkeh4NnU xp9hh76rNIyj6E9tNL8 G8OrZQAdtlkhmSQhwOm aRS1rBOTwjyqjXKPsiZ 0bPFIfH4l2DuZgMdY2M TdpP4FhjdZ1VAHboEGg AZtdEFJ0Z71ff7M7OTC sXMUwIGC4lFQ5cH2clO lnbjogbGVmdDsgdmVyd HcmKNgrPNzqX522CUKa kQhxDLNiqP5hOGTxoDN mlXafYS6vIPKhymcnDm wRD00IHzwaHmlUPAIIS NWEBD18YR77hWGdc3W8 sLV6G4JtVHKghqildtl iyAM6WKFkNTWekH75dG MvVTbkZo3wc1G9h387D MLjCUIbvF55Tf5faOxo MWPesSFCoX1aqvxgb0h cqvsfZeKcLPEaMZd2RN w8XGOgbGvcJvSoSGL2N iV4SEG2uLOzmE1bcHds mxyeuP1fFvt+MTAvMzE aJWv3ZFtseMD+PHRkIH B7wUctLJgdTVRzyV6nW PCaU3m6JpNwCmI7RCmj K8LiIBSnvzdgPs44iJ9 zFcLvGzC7QWjxN8Bujx P2AADjzXPpHWimYXJ8F 79wq2K3WWSaDEJrFUF5 nBC7kQ6uiQajsamqtNS mdDsgdmVydGljYWwtYW maU459JDBpfNnzJfB3U ZifBJUaHT14II55pGNh t6D3zQA9U0XsWIZqvcf hbfowcJE6LAHzSMUosQ 34oLDqBTbpGm1gq3J4r 335EEPlZTNugD57Df7k kZvuWGNveWFPsN8bezy zw6utubghQgFuMZIgIU w3YGz7CTFxaLjvKeHsL CY6QnD9QSE0uDNhoG1z kEkyonwxvH8vYjg+TWF sZTwvdGQ+RBRhHMQ5qX brZXkmUWNklS9vBLRpM 7z6UbBsDpR5ENtiH9Is JGIsvtpdSy37tP3fCeE rXaB7QEugR6WkolT2VK QorYRmJRjvEAH3T12lm 3A5NPMvPOKiXTO3sSE3 fX0pzXohaucbfPPyoUi gdmVydGljYWwtYWxpZ2 11VFQldXipCs78dEOpk QbdnmD0P5VjHyxmcEY+ LE02AVXrQS92oTTblFY cv6tojPc6RaYvVYJcAM Y2uQvlONrlh0McVSIbM 70nwRRjf2I7NONtsKjp xPCrPiJjmYW4kM4hRSa znpfji5fxlgdbQxmur1 oueg09xS57K87pQFbeX HRoPSIzMCUiIHZhbGln ah5tyN9vHu2+PGNvbCB 5mGT5uN9kXcRmBwM2IO sfU483AzTtmIVyIsrnq 4jmr2qaqQo2ZvEpSBJo hhQerWycXNE5c6ZbPy7 0A68sAOcsSRMrIOBlYQ GeAKYwfPwlhw7atX1bK i8+FK1wi1rrsr19pB23 dHI+IVOjUWP3qVqsJRl zIUGqbF7yCAsjVzD8RM EqGrMfgI72sGBtKEqeN l1zkYmxwBwbZE3jJAEo dddtd444KvDhc5qlSDR xzDHfXElvZMO5I29ma1 O9DCRuMCZgOOL5cYM1x S5wlEmvqyipfODmxSdc meWtuKqmZUnzZEijK08 9ORFwjGqcEfGfiMPzV3 ubqqBBYL9yLwrlkYO+P QHkAPS1tRyqJNpkVAYb oG0wWZWmX6q3XaXsFeM 2NQydN0AkzgE9YUTskX XrSITktOEYwY2mgztmo 7yqnbdbBtIpCOMkIDr3 FZf4EPWonJoyNvHyXMB 4OaD8SYF0lHKfaZ3tqU bcvlzsfT0lJin+RklOO jwvdGQ+HWLyGXJ6kSum OYafUCKlqU8eXDJbA1p 8AvTjPsO8BDnuR2Mdbb L9QZXyuZQcFQXmeCQPe V7lokqzn4gvmkdhXaCr FILmXEe5RLo7LEIlbQi oUiGsGUH5HbU6MWO6iZ LlxN7faVwfjytceF5qF yc+TVJOOjwvdGQ+PHRk VDE1jVwgKWufNEItgU6 qPBGwN0r9QuBxGbU5GF lmY1GvvaZ3BGXfuIBsR VKzwPNOyX3zsnqcc7ry amgvMtGyISWlZNp4QZa 8XKEwxRoyFkWgZOY2Bn T0AYS2iKEvpA5kuWzmy lqndC5sZhj+GGA3RMK9 MM92RK86P9UfYjnlgYE ibGU+PHRhYmxlIHdpZH RoPScxMDAlJyBzdHlsZ T6aSx4zKFWjDECooCna cHNl (more content not included)... Normal [facility] Consent for Procedure/Surger yon 05-21-2022 Consent for Procedure/Surgery [id number] [id number]#1.00CD:127 Normal [facility] Consent for Treatmenton 04-25 Consent for Treatment [id number] 02#1.00CD:127 [facility] IntraOperative Documentson 05-21-2022 IntraOperative Documents [id number] 730#1.00CD:127 Normal [facility] Main OR Intraoperative Recor don 05-21-2022 Main OR Intraoperative Record IntraOp Document Type FTURO Summary Primary Physician: Yoseph CHA MD Finalized Date/Time: 05/21/22 10:00:28 Pt. Name: JOSEY NUNEZ/Sex: 1960 Male Med Rec #: [id number] Physician: Yoseph CHA MD Financial #: [id number] Pt. Type: O Room/Bed: / Admit/Disch: 05/21/22 09:22:48 - Institution: Case Times FTURO Entry 1 Patient Times In Room 05/21/22 09:48:00 Out Room 05/21/22 10:06:00 Procedure Times Start 05/21/22 09:54:00 Stop 05/21/22 10:00:00 Anesthesia Times Last Modified By: Corina KULKARNI, ROSIOR, Emmie 05/21/22 10:00:21 Case Attendance FTURO Entry 1 Entry 2 Entry 3 Case Attendee Yoseph CHA MD RN, CNOR, Juliet SMITH, Ita Olea Role Performed Surgeon - Primary Power Manager - Primary Scrub - Primary Time In 05/21/22 09:48:00 05/21/22 09:48:00 05/21/22 09:48:00 Time Out 05/21/22 10:06:00 05/21/22 10:06:00 05/21/22 10:06:00 Procedure CYSTOSCOPY LOCAL(.) CYSTOSCOPY LOCAL(.) CYSTOSCOPY LOCAL(.) Comments Last Modified By: Corina RN, CNOR, Corina RN, CNOR, Corina RN, ROSIOR, Emmie 05/21/22 Emmie 05/21/22 Emmie 05/21/22 10:00:22 10:00:22 10:00:22 Surgical Procedures FTURO Entry 1 Procedure Description Procedure CYSTOSCOPY LOCAL Modifiers . Surgeon Description CYSTOSCOPY Primary Procedure Yes Primary Surgeon Yoseph CHA MD Start 05/21/22 09:54:00 Stop 05/21/22 10:00:00 Anesthesia Type Local Surgical Service Urology Wound Class 2 - Clean-Contaminated Last Modified By: LAURA Arriaga RN, Ruthann 05/21/22 10:00:24 General Case Data FTURO Pre-Care [...] IWHT LUTZ ELEVATED PSA Last Modified By: LAURA Arriaga RN, Ruthann 05/21/22 09:53:02 Post-Care Text: The patient is [...] Position Verified Availability Equipment, Medication Time Out AVE MARTINEZ, Yoseph Gomez, Verified (If Participants Ita Chung CST Applicable) Corina Govea RN, CNOR, Ruthann Time Out Complete 05/21/22 09:54:00 Allergies Reviewed? [...] By: LAURA Arriaga RN, Ruthann 05/21/22 10:00 Normal [facility] Main OR Preoperative Recordo n 05-21-2022 Main OR Preoperative Record Holding Area Document Type FTURO Summary Primary Physician: Yoseph CHA MD Finalized Date/Time: 05/21/22 09:50:43 Pt. Name: JOSEY NUNEZ/Sex: 1960 Male Med Rec #: [id number] Physician: Yoseph CHA MD Financial #: [id number] Pt. Type: O Room/Bed: / Admit/Disch: 05/21/22 [...] No Pain Comment: na Skin Integrity Intact, [place], Warm, & Dry Vitals - EU Blood Pressure 144/83 Pulse 75 bpm Respirations 18 br/min SPO2 96 % RN Reviewed Yes Last Modified By: LAURA Arriaga RN, Ruthann 05/21/22 09:50:40 General Comments: temp:36.5 Finalized By: Corina KULKARNI, Emmie SANCHEZ Document Signatures Signed By: Lico CARPENTERSuyapa Oj 05/21/22 09:35 LAURA Arriaga RN, Ruthann 05/21/22 09:50 Normal [facility] Operative Reporton Operative Report Patient: JOSEY NUNEZ Age: 62 years Sex: Male : 1960 Associated Diagnoses: None Author: Yoseph CHA MD Procedure Operative Information Details: Date/ Time: 05/21/2022 10:02:00. Pre-Op Dx: Gross Hematuria - R31.0, BPH w/ LUTS - N40.1. Post-Op Dx: Same. Anesthesia Type: Local. Procedure: Local Cystoscopy. Complications: None. Risks/Benefits/Info rmed Consent: Surgical risks, benefits, details of the [...] with antibiotic coverage, Follow up arranged. Normal [facility] Comment on above: Result Comment: Elec tronically Signed By: Yoseph CHA MD\.br\Date and Time Signed: 05/21/22 10:03 EST Pre-Certification Formon Pre-Certification Form [id number] 00#1.00CD:127 Normal [facility] UroVys[facility] Fish and Urine Cyt o ([facility])on 05-06-2022 UVFISH & UC Diagnosis Info Invalid Interpretation Code [facility] Comment on above: Result Comment: A:Ur [...] on: 05/06/2022 16:29:38 Performed By: #### 1 [id number] ####[facility] [place] [address] Patient Educationon 04-29-19 Patient Education Urology Hematuria, [...] these instructions at home: Medicines ? Take pglx-rit-zomqndf and prescription medicines only as told by [...] the blood stops without treatment. ? Take azch-ynm-osmvpsd and prescription medicines only as told by your health care provider. ? Drink enough fluid to keep your urine clear or pale yellow. This information is not intended to replace advice given to you by your health care provider. Make sure you discuss any questions you have with your health care provider. Document Released: 03/10/2006 Document Revised: 08/04/2019 Document Reviewed: 04/12/2017 [employer] Patient Education ? 2019 [email or web address]. Normal [facility] Physician Referralon 023 Physician Referral [phone] [id number] Normal [facility] Fish and Urine Cyt o ([facility])on 04-29-2022 [facility] Method of Extraction Voided Normal [facility] Comment on above: Performed By: #### 1 [id number] ####[facility] [address] [place] [address] [facility] Number of Jars 1 Invalid Interpretation Code [facility] Comment on above: Performed By: #### 1 [id number] ####[facility] [address] [place] [address] [facility] Specimen Urine Normal [facility] Comment on above: Performed By: #### 1 [id number] ####[facility] [address] [place] [address] [facility] Type of Service Technical Only Normal [facility] Comment on above: Performed By: #### 1 [id number] ####[facility] [address] [place] [address] CT ABD/PELV WO W CONon 03-20 CT [...] JESSICA NAVA Date: 2022-03-20 07:45 Normal [facility] PSA, FREE AND TOTAL RATIOon 03-15-2022 % Free PSA 22.9 % Normal [facility] Comment on above: Result Comment: The [...] men. Performed By: #### P SAFREE #### [facility] [address] [place] [address] Dr. Stanton Lange Prostate specific Ag [Mass/Vol] 3.8 ng/mL Normal 0.0-4.0 [facility] Comment on above: Result Comment: Lavelle TAVERAS methodology. . According to the [employer], Serum PSA should decrease and [...] disease. Performed By: #### P SAFREE #### [facility] [address] [place] [address] Dr. Stanton Lange PSA, Free 0.87 ng/mL Normal N/A [facility] Comment on above: Result Comment: Lavelle TAVERAS methodology. Performed By: #### P SAFREE #### [facility] [address] [place] [address] Dr. Stanton Lange CBC AUTO DIFFon 02-26-2022 BASO # 0.1 103/ul Normal 0.0-0.1 [facility] Comment on above: Performed By: #### D ATCBC #### [facility] [address] [place] [address] Dr. Stanton Lange Basophils/100 WBC (Bld) 0.7 % Normal 0.2-2.0 [facility] Comment on above: Performed By: #### D ATCBC #### [facility] [address] [place] [address] Dr. Stanton Lange EO # 0.2 103/ul Normal 0.0-0.7 [facility] Comment on above: Performed By: #### D ATCBC #### [facility] [address] [place] [address] Dr. Stanton Lange Eosinophils/100 WBC (Bld) 3.1 % Normal 0.9-7.0 [facility] Comment on above: Performed By: #### D ATCBC #### [facility] [address] [place] [address] Dr. Stanton Lange Erythrocyte distribution width (RBC) [Ratio] 12.2 % Normal 11.0-15.0 [facility] Comment on above: Performed By: #### D ATCBC #### [facility] [address] [place] [address] Dr. Stanton Lange Hematocrit (Bld) [Volume fraction] 43.9 % Normal 42.0-54.0 [facility] Comment on above: Performed By: #### D ATCBC #### [facility] [address] [place] [address] Dr. Stanton Lange Hemoglobin (Bld) [Mass/Vol] 15.2 g/dL Normal 14.0-18.0 [facility] Comment on above: Performed By: #### D ATCBC #### [facility] [address] [address] [address] Stanton Lange IG # 0.03 10e3/ul Normal 0.00-0.03 [facility] Comment on above: Performed By: #### D ATCBC #### [facility] [address] [address] [address] Stanton Lange IG % 0.4 % Normal 0.0-0.5 [facility] Comment on above: Performed By: #### D ATCBC #### [facility] [address] [address] [address] Stanton Lange LYMPH # 2.9 103/ul Normal 1.2-3.8 [facility] Comment on above: Performed By: #### D ATCBC #### [facility] [address] [place] [address] Dr. Stanton Lange Lymphocytes/100 WBC (Bld) 38.8 % Normal 20.5-60.0 [facility] Comment on above: Performed By: #### D ATCBC #### [facility] [address] [address] [address] Stanton Lange MCH (RBC) [Entitic mass] 31.9 pg Normal 25.9-34.0 [facility] Comment on above: Performed By: #### D ATCBC #### [facility] [address] [address] [address] Stanton Lange MCHC (RBC) [Mass/Vol] 34.6 g/dL Normal 29.9-35.2 [facility] Comment on above: Performed By: #### D ATCBC #### [facility] [address] [address] [address] Stanton Lange MCV (RBC) [Entitic vol] 92.2 fL Normal 80.0-94.0 [facility] Comment on above: Performed By: #### D ATCBC #### [facility] [address] [address] [address] Stanton Lange MONO # 0.5 103/ul Normal 0.3-0.8 [facility] Comment on above: Performed By: #### D ATCBC #### [facility] [address] [address] [address] Stanton Lange Monocytes/100 WBC (Bld) 6.3 % Normal 1.7-12.0 [facility] Comment on above: Performed By: #### D ATCBC #### [facility] [address] [address] [address] Stanton Lange NEUT # 3.8 103/ul Normal 1.4-6.5 [facility] Comment on above: Performed By: #### D ATCBC #### [facility] [address] [address] [address] Stanton Lange Neutrophils/100 WBC (Bld) 50.7 % Normal 43.0-75.0 [facility] Comment on above: Performed By: #### D ATCBC #### [facility] [address] [place] [address] Dr. Stanton Lange Platelet mean volume (Bld) [Entitic vol] 9.7 fL Normal 9.5-13.5 [facility] Comment on above: Performed By: #### D ATCBC #### [facility] [address] [place] [address] Dr. Stanton Lange PLT 142 103/ul Critically low 150-450 [facility] Comment on above: Performed By: #### D ATCBC #### [facility] [address] [address] [address] Stanton Lange RBC 4.76 106/ul Normal 4.70-6.10 [facility] Comment on above: Performed By: #### D ATCBC #### [facility] [address] [address] [address] Stanton Lange WBC 7.5 103/ul Normal 4.0-11.0 [facility] Comment on above: Performed By: #### D ATCBC #### [facility] [address] [place] [address] Dr. Stanton Lange LIANNE- BMP WITH LIPIDon 2021 Anion gap [Moles/Vol] 9.6 mmol/L Normal [facility] Comment on above: Performed By: #### D ATPSA, DATBMP #### [facility] [address] [address] [address] Stanton Lange Calcium [Mass/Vol] 8.8 mg/dL Normal 8.5-10.1 [facility] Comment on above: Performed By: #### D ATPSA, DATBMP #### [facility] [address] [address] [address] Stanton Lange Chloride [Moles/Vol] 105 mmol/L Normal 98-107 [facility] Comment on above: Performed By: #### D ATPSA, DATBMP #### [facility] [address] [place] [address] Dr. Stanton Lange Cholesterol [Mass/Vol] 205 mg/dL Critically high <=200 [facility] Comment on above: Performed By: #### D ATPSA, DATBMP #### [facility] [address] [place] [address] Dr. Stanton Lange Cholesterol in HDL [Mass/Vol] 38 mg/dL Critically low 40-60 [facility] Comment on above: Performed By: #### D ATPSA, DATBMP #### [facility] [address] [place] [address] Dr. Stanton Lange Cholesterol in LDL [Mass/Vol] 90.8 mg/dL Normal [facility] Comment on above: Performed By: #### D ATPSA, DATBMP #### [facility] [address] [place] [address] Dr. Stanton Lange CO2 [Moles/Vol] 29.9 mmol/L Normal 21.0-32.0 [facility] Comment on above: Performed By: #### D ATPSA, DATBMP #### [facility] [address] [place] [address] Dr. Stanton Lange Creatinine [Mass/Vol] 1.27 mg/dL Normal 0.70-1.30 [facility] Comment on above: Performed By: #### D ATPSA, DATBMP #### [facility] [address] [place] [address] Dr. Stanton Lange EGFR-AF ZIMBABWEAN >60 Normal >=60 [facility] Comment on above: Performed By: #### D ATPSA, DATBMP #### [facility] [address] [address] [address] Stanton Lange EGFR-NON AF ZIMBABWEAN 57 mL/min/1.73m2 Critically low >=60 [facility] Comment on above: Performed By: #### D ATPSA, DATBMP #### [facility] [address] [address] [address] Stanton Lange Glucose [Mass/Vol] 160 mg/dL Critically high 74-106 [facility] Comment on above: Performed By: #### D ATPSA, DATBMP #### [facility] [address] [place] [address] Dr. Stanton Lange HDL NORMAL > or = 60 mg/dl - LOW CARDIOVASCULAR RISK <40 mg/dl - HIGH CARDIOVASCULAR RISK Normal [facility] Comment on above: Performed By: #### D ATPSA, DATBMP #### [facility] [address] [address] [address] Stanton Lange LDL CALC NORMAL SEE BELOW Normal [facility] Comment on above: Result Comment: <100 mg/dl OPTIMAL 100 - 129 mg/dl NEAR OR ABOVE OPTIMAL 130 - 159 mg/dl BORDERLINE HIGH 160 - 189 mg/dl HIGH >190 mg/dl VERY HIGH Performed By: #### D ATPSA, DATBMP #### [facility] [address] [address] [address] Stanton Lange Potassium [Moles/Vol] 4.5 mmol/L Normal 3.5-5.1 [facility] Comment on above: Performed By: #### D ATPSA, DATBMP #### [facility] [address] [address] [address] Stanton Lange Sodium [Moles/Vol] 140 mmol/L Normal 136-145 [facility] Comment on above: Performed By: #### D ATPSA, DATBMP #### [facility] [address] [address] [address] Stanton Lange Triglyceride [Mass/Vol] 381 mg/dL Critically high <=150 [facility] Comment on above: Performed By: #### D ATPSA, DATBMP #### [facility] [address] [address] [address] Stanton Lange Urea nitrogen [Mass/Vol] 19.0 mg/dL Critically high 7.0-18.0 [facility] Comment on above: Performed By: #### D ATPSA, DATBMP #### [facility] [address] [address] [address] Stanton Lange Urea nitrogen/Creatinin e [Mass ratio] 15.0 mg/mg Normal [facility] Comment on above: Performed By: #### D ATPSA, DATBMP #### [facility] [address] [address] [address] Stanton Lange VLDL CALC 76.2 mg/dL Normal [facility] Comment on above: Performed By: #### D ATPSA, DATBMP #### [facility] [address] [address] [address] Stanton Lange Office Visit (Cardiology)on 10-17-2021 Follow-up visit Diagnoses/Problems Assessed Essential hypertension (401.9) (I10) Hyperlipidemia (272.4) (E78.5) Never smoker Class 1 obesity with body mass index (BMI) of 32.0 to 32.9 in adult (278.00,V85.32) (E66.9,Z68.32) Orders Class 1 obesity with body mass index (BMI) of 32.0 to 32.9 in adult Healthy Weight Tips; Status:Complete - Retrospective Authorization; Done: [id number] Some eating tips that can help you lose weight.; Status:Complete - Retrospective Authorization; Done: [id number] SocHx: Never smoker Tobacco Use Screening; Status:Complete; Done: [id number] Patient Instructions Please bring all medicines, vitamins, and herbal supplements with you when you come to the office. Prescriptions will not be filled unless you are compliant with your follow up appointments or have a follow up appointment scheduled as per instruction of your physician. Refills should be requested at the time of your visit. Follow up in 1 year. Elizabeth Ennis LPN, am scribing for and in the [...] reviewed. He sees his PCP twice yearly. Assessment/recommen dations: 1- essential hypertension presently under control medical therapy with no changes needed. His labs from recent testing were reviewed and no concerns noted 2? dyslipidemia , currently on ezetimibe 10 mg daily which has been tolerated. Recent lipid profile was acceptable 3?obesity.encourage d patient to continue to work on low-calorie [...] negative for complaint. Vitals Vital Signs Recorded: 17Oct2021 09:20AMRecorded: 17Oct2021 09:06AM Qplujnhi111, LUE, Piigrga943, LUE, Sitting Kxaqzbiqp83, LUE, Jlmlfsg95, LUE, Sitting Heart Rate70, L Radial Height5 ft 6 in Zdajgn181 lb BMI Jnckciohtz77.12 kg/m2 BSA Calculated2 Tobacco Useb) No PHQ-2 [...] Screening.on 022 Adult depression screening assessment No [facility] y 250 DO Work Phone: Tobacco use status [facility] b) No [facility] y 250 DO Work Phone: CBC AUTO DIFFon 03-28-2021 BASO # 0.1 103/ul Normal 0.0-0.1 [facility] Comment on above: Performed By: #### D ATCBC #### [facility] [address] [address] [address] Stanton Lange Basophils/100 WBC (Bld) 0.7 % Normal 0.2-2.0 [facility] Comment on above: Performed By: #### D ATCBC #### [facility] [address] [place] [address] Dr. Stanton Lange EO # 0.3 103/ul Normal 0.0-0.7 [facility] Comment on above: Performed By: #### D ATCBC #### [facility] [address] [place] [address] Dr. Stanton Lange Eosinophils/100 WBC (Bld) 3.3 % Normal 0.9-7.0 [facility] Comment on above: Performed By: #### D ATCBC #### [facility] [address] [place] [address] Dr. Stanton Lange Erythrocyte distribution width (RBC) [Ratio] 12.5 % Normal 11.0-15.0 [facility] Comment on above: Performed By: #### D ATCBC #### [facility] [address] [place] [address] Dr. Stanton Lange Hematocrit (Bld) [Volume fraction] 41.1 % Critically low 42.0-54.0 [facility] Comment on above: Performed By: #### D ATCBC #### [facility] [address] [place] [address] Dr. Stanton Lange Hemoglobin (Bld) [Mass/Vol] 14.1 g/dL Normal 14.0-18.0 [facility] Comment on above: Performed By: #### D ATCBC #### [facility] [address] [place] [address] Dr. Stanton Lange IG # 0.05 10e3/ul Critically high 0.00-0.03 [facility] Comment on above: Performed By: #### D ATCBC #### [facility] [address] [place] [address] Dr. Stanton Lange IG % 0.7 % Critically high 0.0-0.5 [facility] Comment on above: Performed By: #### D ATCBC #### [facility] [address] [place] [address] Dr. Stanton Lange LYMPH # 2.7 103/ul Normal 1.2-3.8 [facility] Comment on above: Performed By: #### D ATCBC #### [facility] [address] [place] [address] Dr. Stanton Lange Lymphocytes/100 WBC (Bld) 34.8 % Normal 20.5-60.0 [facility] Comment on above: Performed By: #### D ATCBC #### [facility] [address] [place] [address] Dr. Stanton Lange MCH (RBC) [Entitic mass] 32.1 pg Normal 25.9-34.0 [facility] Comment on above: Performed By: #### D ATCBC #### [facility] [address] [place] [address] Dr. Stanton Lange MCHC (RBC) [Mass/Vol] 34.3 g/dL Normal 29.9-35.2 [facility] Comment on above: Performed By: #### D ATCBC #### [facility] [address] [place] [address] Dr. Stanton Lange MCV (RBC) [Entitic vol] 93.6 fL Normal 80.0-94.0 [facility] Comment on above: Performed By: #### D ATCBC #### [facility] [address] [place] [address] Dr. Stanton Lange MONO # 0.5 103/ul Normal 0.3-0.8 [facility] Comment on above: Performed By: #### D ATCBC #### [facility] [address] [place] [address] Dr. Stanton Lange Monocytes/100 WBC (Bld) 5.9 % Normal 1.7-12.0 [facility] Comment on above: Performed By: #### D ATCBC #### [facility] [address] [place] [address] Dr. Stanton Lange NEUT # 4.2 103/ul Normal 1.4-6.5 [facility] Comment on above: Performed By: #### D ATCBC #### [facility] [address] [address] [address] Stanton Lange Neutrophils/100 WBC (Bld) 54.6 % Normal 43.0-75.0 [facility] Comment on above: Performed By: #### D ATCBC #### [facility] [address] [address] [address] Stanton Lange Platelet mean volume (Bld) [Entitic vol] 9.7 fL Normal 9.5-13.5 [facility] Comment on above: Performed By: #### D ATCBC #### [facility] [address] [address] [address] Stanton Lange PLT 155 103/ul Normal 150-450 [facility] Comment on above: Performed By: #### D ATCBC #### [facility] [address] [place] [address] Dr. Stanton Lange RBC 4.39 106/ul Critically low 4.70-6.10 [facility] Comment on above: Performed By: #### D ATCBC #### [facility] [address] [address] [address] Stanton Lange WBC 7.7 103/ul Normal 4.0-11.0 [facility] Comment on above: Performed By: #### D ATCBC #### [facility] [address] [place] [address] Dr. Stanton Lange LIANNE- BMP WITH LIPIDon 2021 Anion gap [Moles/Vol] 13.3 mmol/L Normal [facility] Comment on above: Performed By: #### D ATPSA, DATBMP #### [facility] [address] [address] [address] Stanton Lange Calcium [Mass/Vol] 8.6 mg/dL Normal 8.4-10.2 [facility] Comment on above: Performed By: #### D ATPSA, DATBMP #### [facility] [address] [address] [address] Stanton Lange Chloride [Moles/Vol] 105 mmol/L Normal 98-107 [facility] Comment on above: Performed By: #### D ATPSA, DATBMP #### [facility] [address] [address] [address] Stanton Lange Cholesterol [Mass/Vol] 202 mg/dL Critically high <=200 [facility] Comment on above: Performed By: #### D ATPSA, DATBMP #### [facility] [address] [address] [address] Stanton Lange Cholesterol in HDL [Mass/Vol] 37 mg/dL Normal [facility] Comment on above: Performed By: #### D ATPSA, DATBMP #### [facility] [address] [address] [address] Stanton Lange Cholesterol in LDL [Mass/Vol] 115.0 mg/dL Normal [facility] Comment on above: Performed By: #### D ATPSA, DATBMP #### [facility] [address] [address] [address] Stanton Lange CO2 [Moles/Vol] 26.6 mmol/L Normal 22.0-30.0 [facility] Comment on above: Performed By: #### D ATPSA, DATBMP #### [facility] [address] [address] [address] Stanton Lange Creatinine [Mass/Vol] 1.32 mg/dL Critically high 0.66-1.25 [facility] Comment on above: Performed By: #### D ATPSA, DATBMP #### [facility] [address] [address] [address] Stanton Lange EGFR-AF ZIMBABWEAN >60 Normal >=60 [facility] Comment on above: Performed By: #### D ATPSA, DATBMP #### [facility] [address] [address] [address] Stanton Lange EGFR-NON AF ZIMBABWEAN 55 mL/min/1.73m2 Critically low >=60 [facility] Comment on above: Performed By: #### D ATPSA, DATBMP #### [facility] [address] [address] [address] Stanton Lange Glucose [Mass/Vol] 130 mg/dL Critically high 74-106 [facility] Comment on above: Performed By: #### D ATPSA, DATBMP #### [facility] [address] [address] [address] Stanton Lange HDL NORMAL > or = 60 mg/dl - LOW CARDIOVASCULAR RISK <40 mg/dl - HIGH CARDIOVASCULAR RISK Normal [facility] Comment on above: Performed By: #### D ATPSA, DATBMP #### [facility] [address] [address] [address] Stanton Lange LDL CALC NORMAL SEE BELOW Normal [facility] Comment on above: Result Comment: <100 mg/dl OPTIMAL 100 - 129 mg/dl NEAR OR ABOVE OPTIMAL 130 - 159 mg/dl BORDERLINE HIGH 160 - 189 mg/dl HIGH >190 mg/dl VERY HIGH Performed By: #### D ATPSA, DATBMP #### [facility] [address] [address] [address] Stanton Lange Potassium [Moles/Vol] 3.9 mmol/L Normal 3.4-5.0 [facility] Comment on above: Performed By: #### D ATPSA, DATBMP #### [facility] [address] [address] [address] Stanton Lange Sodium [Moles/Vol] 141 mmol/L Normal 137-145 [facility] Comment on above: Performed By: #### D ATPSA, DATBMP #### [facility] [address] [address] [address] Stanton Lange Triglyceride [Mass/Vol] 250 mg/dL Critically high <=150 [facility] Comment on above: Performed By: #### D ATPSA, DATBMP #### [facility] [address] [address] [address] Stanton Lange Urea nitrogen [Mass/Vol] 26.0 mg/dL Critically high 9.0-20.0 [facility] Comment on above: Performed By: #### D ATPSA, DATBMP #### [facility] [address] [address] [address] Stanton Lange Urea nitrogen/Creatinin e [Mass ratio] 19.7 mg/mg Normal [facility] Comment on above: Performed By: #### D ATPSA, DATBMP #### [facility] [address] [place], [place] [address] Dr. Stanton Lange VLDL CALC 50.0 mg/dL Normal [facility] Comment on above: Performed By: #### D ATPSA, DATBMP #### [facility] [address] [place], [place] [address] Dr. Stanton Lange Vital Signs Date Time Vital Sign Value Performing Clinician Facility 03-03-2023 10:51-0500 Blood Pressure Location [facility] 03-03-2023 10:51-0500 Diastolic blood pressure 87 mm[Hg] [facility] 03-03-2023 10:51-0500 Heart rate 73 /min [facility] 03-03-2023 10:51-0500 Respiratory rate 16 /min [facility] 03-03-2023 10:51-0500 Systolic blood pressure 125 mm[Hg] [facility] 02-18-2023 10:30-0500 Body height 167.64 cm Xavi Hensley Other [facility] [employer] Other 02-18-2023 10:30-0500 Body mass index (BMI) [Ratio] 32.08 kg/m2 Xavi Hensley Other [facility] [employer] Other 02-18-2023 10:30-0500 Body weight 90.18 kg Xavi Hensley Other [facility] [facility] [employer] Other 02-18-2023 10:30-0500 Diastolic blood pressure 73 mm[Hg] Xavi Ball Other [employer] Other 02-18-2023 10:30-0500 Respiratory rate 12 /min Xavi Ball Other [employer] Other 02-18-2023 10:30-0500 Systolic blood pressure 144 mm[Hg] Xavi Ball Other [employer] Other 10-08-2022 08:56-0400 Body height 167.64 cm Xavi E Ball Work Phone: TQ-Pnpvoxsizc-Znlxvcr y 250 DO Work Phone: 10-08-2022 08:56-0400 Body mass index (BMI) [Ratio] 31.47 kg/m2 Xavi E Ball Work Phone: IL-Tqrlilmrrw-Wswcigw y 250 DO Work Phone: 10-08-2022 08:56-0400 Body surface area Derived from formula 1.98 m2 Xavi E Ball Work Phone: AV-Ihjcuhkeuh-Djvprwr y 250 DO Work Phone: 10-08-2022 08:56-0400 Body weight 88.45 kg Xavi E Ball Work Phone: ZD-Ptwiacmijo-Bhmfndh y 250 DO Work Phone: 10-08-2022 08:56-0400 Diastolic blood pressure 74 mm[Hg] Xavi E Ball Work Phone: TN-Bnbrykwpen-Fdbbwtv y 250 DO Work Phone: 10-08-2022 08:56-0400 Heart rate 76 /min Xavi E Ball Work Phone: NJ-Dtakpgthxk-Oqunifp y 250 DO Work Phone: 10-08-2022 08:56-0400 Systolic blood pressure 128 mm[Hg] Xavi E Ball Work Phone: GH-Fvslqyvijb-Qkeiimx y 250 DO Work Phone: 09-09-2022 09:38-0400 Blood Pressure Location Yoseph CHA [facility] 09-09-2022 09:38-0400 Diastolic blood pressure 87 mm[Hg] Yoseph CHA [facility] 09-09-2022 09:38-0400 Heart rate 77 /min Yoseph CHA [facility] 09-09-2022 09:38-0400 Respiratory rate 16 /min Yoseph CHA [facility] 09-09-2022 09:38-0400 Systolic blood pressure 129 mm[Hg] Yoseph CHA [facility] 04-29-2022 09:17-0500 Diastolic blood pressure 100 mm[Hg] Yoseph CHA [facility] 04-29-2022 09:17-0500 Mean blood pressure 123 mm[Hg] Yoseph CHA [facility] 04-29-2022 09:17-0500 Systolic blood pressure 169 mm[Hg] Yoseph CHA [facility] 04-29-2022 09:08-0500 Blood Pressure Location Yoseph CHA [facility] 04-29-2022 09:08-0500 Diastolic blood pressure 107 mm[Hg] Yoseph CHA [facility] 04-29-2022 09:08-0500 Heart rate 82 /min Yoseph CHA [facility] 04-29-2022 09:08-0500 Respiratory rate 16 /min Yoseph CHA [facility] 04-29-2022 09:08-0500 Systolic blood pressure 117 mm[Hg] Yoseph CHA [facility] 10-17-2021 09:20-0400 Diastolic blood pressure 75 mm[Hg] Xavi E Ball Work Phone: [facility] 250 DO Work Phone: 10-17-2021 09:20-0400 Systolic blood pressure 136 mm[Hg] Xavi E Ball Work Phone: [facility] 250 DO Work Phone: 10-17-2021 09:06-0400 Body height 167.64 cm Xavi E Ball Work Phone: [facility] 250 DO Work Phone: 10-17-2021 09:06-0400 Body mass index (BMI) [Ratio] 32.12 kg/m2 Xavi E Ball Work Phone: [facility] 250 DO Work Phone: 10-17-2021 09:06-0400 Body surface area Derived from formula 2 m2 Xavi E Ball Work Phone: [facility] 250 DO Work Phone: 10-17-2021 09:06-0400 Body weight 90.27 kg Xavi E Ball Work Phone: [facility] 250 DO Work Phone: 10-17-2021 09:06-0400 Diastolic blood pressure 86 mm[Hg] Xavi E Ball Work Phone: [facility] 250 DO Work Phone: 10-17-2021 09:06-0400 Heart rate 70 /min Xavi Garcia Ayden Work Phone: [facility] 250 DO Work Phone: 10-17-2021 09:06-0400 Systolic blood pressure 142 mm[Hg] Xavi Hensley Work Phone: [facility] 250 DO Work Phone: Encounters Encounter Date Encounter Type Care Provider Facility Start: 03-21-2023 End: 03-22-2023 ambulatory Kelsea Griffith Facility:[facility] Start: 03-21-2023 End: 03-21-2023 Patient encounter procedure Kelsea Griffith [facility] Start: 03-19-2023 End: 03-20-[address] Facility:[facility] Start: 03-19-2023 End: 03-19-2023 Patient encounter procedure [facility] Start: 03-03-2023 End: 03-04-2023 ambulatory Yoseph Jason CHA Facility:[facility] Start: 03-03-2023 End: 03-03-2023 Patient encounter procedure Yoseph CHA [facility] Start: 02-18-2023 End: 02-18-2023 ambulatory Xavi Ayden Other [facility] [employer] Other Start: 02-18-2023 Patient encounter procedure Xavi Hensley [facility] Start: 10-08-2022 Office outpatient vi sit 15 minutes Xavi Garcia Ayden Work Phone: [facility]-Qtedzinnzo-Mqugyrex 250 DO Work Phone: Start: 10-08-[address] Lanie Cruz Facility: Start: 09-09-2022 End: 09-10-[address] Facility:[facility] Start: 09-09-2022 End: 09-09-2022 Patient encounter procedure Yoseph Gomez [address] [facility] Start: 05-21-2022 End: 05-22-[address] Facility[facility] Start: 05-21-2022 End: 05-21-2022 Patient encounter procedure Yoseph CHA [facility] Start: 04-29-2022 End: 04-30-[address] Facility:[facility] Start: 04-29-2022 End: 04-29-2022 Patient encounter procedure Yoseph Gomez [address] [facility] Start: 03-29-2022 ambulatory Yoseph CHA Facility :[facility] Start: 03-19-2022 End: 03-20-[address] XAVI HENSLEY Facility:[facility] Start: 03-14-2022 End: 03-15-[address] XAVI HENSLEY Facility:[facility] Start: 03-02-2022 Encounter for genera l adult medical examination without abnormal findings NONE LISTED REQUEST [facility] Start: 02-26-2022 End: 02-27-[address] XAVI HENSLEY Facility:[facility] Start: 02-26-2022 End: 02-27-2022 Encounter for general adult medical examination without abnormal findings DR XAVI HENSLEY Facility:[facility] Start: 11-14-2021 End: 11-15-2021 ambulatory EVA OLVERA Facility:[facility] Start: 10-17-2021 Office outpatient vi sit 25 minutes Xavi Hensley Work Phone: [facility] 250 DO Work Phone: Start: 10-17-[address] Xavi Hensley Facility: Start: 03-28-2021 End: 03-29-[address] NONE LISTED REQUEST Facility: Start: 01-29-2018 Patient encounter procedure LANIE CRUZ Facility:[id number] Procedures Date Procedure Procedure Detail Performing Clinician Start: 04-29-2022 Cystoscopy Yoseph LUNDBERG Start: 02-26-[address] SATINDER HENSLEY Comment on above: Performed By: #### D ATPSA, DATBMP #### [facility] [address] [place] [address] Dr. Stanton Lange Start: 03-28-[address] SATINDER HENSLEY Comment on above: Performed By: #### D ATPSA, DATBMP #### [facility] [address] [place] [address] Dr. Stanton Lange Start: 03-24-2018 Total colonoscopy [...] Lanie Cruz, Status: Pen, Time: 8:30 AM [facility] y 250 DO Work Phone: Start: 04-21-2023 ambulatory Ambulatory Facility:[facility] [place] Start: 03-31-2023 ambulatory Ambulatory Facility:[facility] [place] Start: 03-27-2023 ambulatory Ambulatory Facility: [id number] Start: 10-08-2022 FUV, Provider: Lanie Cruz, Status: Pen, Time: 9:00 AM [facility], Provider: Lanie Cruz, Status: Pen, Time: 9:00 AM [facility] 250 DO Work Phone: Immunizations Immunization Date Immunization Notes Care Provider Tabitha arambula 02-23-2021 Pfizer-BioNTech COVI D-19 Vacc 30 MCG/0.3ML Intramuscular Suspension Xavi Jose Ayden Work Phone: [facility] 07-14-2020 Pfizer-BioNTech COVI D-19 Vacc 30 MCG/0.3ML Intramuscular Suspension Xavi Jose Ayden Work Phone: [facility] 06-23-2020 Pfizer-BioNTech COVI D-19 Vacc 30 MCG/0.3ML Intramuscular Suspension Xavi Jose Ayden Work Phone: [facility] 06-02-2020 Pfizer-BioNTech COVI D-19 Vacc 30 MCG/0.3ML Intramuscular Suspension Xavi Jose Ayden Work Phone: [facility] 03-24-2007 influenza virus vacc ine, unspecified formulation Xavi Jose Ayden Work Phone: [facility] 250 DO Work Phone: Payers Date Payer Category Payer Self-pay [id number] 1961 Unknown [id number] 1960 Unknown [id number] 1958 Unknown [id number] 1958 Unknown [id number] .[id number] 1958 Unknown [id number] .[id number] 1958 Unknown [id number] [id number] 1958 Unknown [id number] [id number] 1958 Unknown [id number] [id number] 1958 Unknown [id number] [id number] 1958 Unknown [id number] [id number] 1958 Unknown [id number] [id number] 1958 Unknown [id number] [id number] 1958 Unknown [id number] [id number] 1958 Unknown [id number] [id number] 1958 Unknown [id number] [id number] Medicare [id number] 2. [id number] Unknown [facility] Unknown [id number] [id number] Unknown [id number] [id number] Social History Date Type Detail Facility Alcohol use Alcohol use -[facility] 250 DO Work Phone: Start: 04-29-2022 Tobacco smoking status Never s moked tobacco (finding) [facility] Tobacco smoking status Never [facility] Sex Assigned At Male [facility] Functional Status Date Assessment Result Facility 03-03-2023 Functional Status N/A [facility] 09-09-2022 Functional Status N/A [facility] 05-14-2022 Functional Status N/A [facility] 04-29-2022 Functional Status N/A [facility] [place] Clinical Notes 11-15-2021 to 03-03-2023 Note Date [...] including vitamins, herbs, eye drops, creams, and tlvr-tto-gqzpikb medicines. Any problems you or family members [...] provider tells you to take them. Taking hlxf-oic-vfkbsyc medicines, vitamins, herbs, and supplements. Surgery safety [...] provider. Document Revised: 12/04/2021 Document Reviewed: 12/04/2021 [employer] Patient Education 2022 [email or web address]. 03/03/2023 11:43:45 Benign Prostatic Hyperplasia Benign Prostatic [...] urethra. Follow these instructions at home: Take vuzc-sie-atundwj and prescription medicines only as told by [...] provider. Document Revised: 09/26/2021 Document Reviewed: 09/26/2021 [employer] Patient Education 2022 [email or web address]. Follow Up Care 09/09/2022 10:15:32 With:AVE MARTINEZ, Yoseph Gomez, URL Address: [facility] [address] , [place] [address]- When: Unknown Comments:Schedule TURP [facility] [place] 02-18-2023 Evaluation note Encounter Date Diagnosis Assessment [...] the risk for cerebrovascular and cardiovascular disease. [employer] Other 06-19-2023 Hospital Discharge instructions Patient Education [...] treatment? Where to find more information [employer]: www.cancer.org [employer]: www.auanet.org Contact a health care [...] provider. Document Revised: 09/03/2021 Document Reviewed: 09/03/2021 [employer] Patient Education 2022 [email or web address]. [facility] 05/21/2022 10:07:20 With:AVE MARTINEZ, Yoseph Gomez, URL Address: [facility] [address] , [place] [address]- When: Unknown [facility] 02-28-2023 Note [id number] 05-21-2022 Hospital Discharge instructions Patient Education [...] With:Yoseph CHA Address: [facility] [address] [place] [address]- Business (1) When:09/18/2022 10:06:03 [facility]02-28-2023 NoteCustom Cystoscopy ? Voiding after the procedure: [...] if you have a fever over 100 degrees.[facility] 04-29-2022 NoteChief Complaint Referral *Elevated PSA, [...] start pt on Doxycycline (more content not included)...[facility]Result Comment: Electronically Signed By: [...] Follow these instructions at home: Medicines Take epnx-vsp-whcsltx and prescription medicines only as told by [...] or the blood stops without treatment. Take sany-wbs-xyaexdx and prescription medicines only as told by your health care provider. Drink enough fluid to keep your urine clear or pale yellow. This information is not intended to replace advice given to you by your health care provider. Make sure you discuss any questions you have with your health care provider. Document Released: 03/10/2006 Document Revised: 08/04/2019 Document Reviewed: 04/12/2017 [employer] Patient Education 2019 [employer] Follow Up Care 03/29/2022 09:51:12 With:AVE MARTINEZ, Yoseph Gomez, URL Address: [facility] [address] [place] [address]- [phone] When: Unknown [facility] 08-25-2022 NotePROCEDURE: XR FOOT RT MIN 3 [...] Electronically authenticated by: ROOSEVELT HUITRON Date: 2021-11-15 [facility] App[facility]ments Appointment Date:05/14/2022 11:15:00 AM Scheduled Provider: Location:[facility] Appointment Type:Urology CALL PAT FT Appointment Date:05/21/2022 10:00:00 AM Scheduled Provider: Location:[facility] Appointment Type:Urology FT Diagnostic Tests Pending * [facility] Fish and Urine Cyto ([facility]) 04/29/22 [facility] evaluation + Plan note Future Appointments Appointment Date:09/09/2022 09:30:00 AM Scheduled Provider:Yoseph CHA MD Location:[facility] App[facility]ments Appointment Date:03/14/2023 09:30:00 AM Scheduled Provider:Yoseph CHA MD Location:[facility] Appointment Type:URO Office Visit [facility] evaluation + Plan note Future Appointments Appointment Date:03/19/2023 09:00:00 AM Scheduled Provider: Location:[facility] Appointment Type:URO Nurse Visit Appointment Date:03/31/2023 11:00:00 AM Scheduled Provider: Location:[facility] Appointment Type:URO Nurse Visit Appointment Date:04/21/2023 09:30:00 AM Scheduled Provider:Yoseph CHA MD Location:[facility] Appointment Type:URO Office Visit [facility] [employer] evaluation + Plan note Future Appointments Appointment Date:03/31/2023 11:00:00 AM Scheduled Provider: Location:[facility] Appointment Type:URO Nurse Visit Appointment Date:04/21/2023 09:30:00 AM Scheduled Provider:Yoseph CHA MD Location:[facility] Appointment Type:URO Office Visit [facility] [employer] History general Narrative - Reported* Type Description Date Medical History Mixed hyperlipidemia Medical History Essential (primary) hypertension Medical History Type 2 diabetes david itus with hyperglycemia Surgical History Hernia Repair Surgical History Colonoscopy ,2007,2010 ,2013 Surgical History Tonsillectomy Hospitalization History see surgical hx [employer] Other Hospital course Narrative No data available for this section [facility] Discharge instructions No data available for this section [facility] [place] [employer] progress note No data available for this section [facility] [place] Summary Purpose Family History No Family History [...] section and content) DATE CREATED AUTHOR 03/01/2018 [facility] DATE CREATED AUTHOR AUTHOR'S ORGANIZ ATION 03/22/2022 [facility] DATE CREATED AUTHOR AUTHOR'S ORGANIZ ATION 10/09/2022 [facility] DATE CREATED AUTHOR AUTHOR'S ORGANIZ ATION 10/09/2022 [facility] DATE CREATED AUTHOR AUTHOR'S ORGANIZ ATION 03/22/2023 [facility] Patient Care team informatio n (unrecognized section and content) Personnel Name: XAVI HENSLEY DO Address: Address: [address] [place] [address] Personnel Name: XAVI HENSLEY DO Address: Address: [address] Personnel Name: XAVI HENSLEY DO Address: Address: [facility] Personnel Name: XAVI HENSLEY DO Address: Address: [address] [place] [address] Personnel Name: XAVI HENSLEY DO Address: Address: [address] [facility] [place] [address]- Personnel Name: XAVI HENSLEY DO Address: Address: [address] [facility] [place] [address]- [place] REASON FOR VISIT (unrecogniz ed section and [...] BE BASED ON THE PRIMARY CLINICAL RECORDS. [facility] [employer] [facility]. provides no warranty or guarantee of the accuracy or completeness of information in this document.
[2023-03-27] MEDS: LACTATED RINGER'S SOLUTION 1,000 ML 50 ML IV (11:08)
[2023-03-27] MEDS: LEVOFLOXACIN IN DEXTROSE 5 % 500 MG/100 ML PIGGYBACK 100 MG IV (11:09)
--- NOTE | 2023-03-27 12:55 | PM.URSON ---
Urology Surgery Operative Note Operative Note Procedure Date: 03/27/23 Time Out Performed: yes Pre-op Diagnosis: pH with LUTS and prostatitis refractory to medical management. Post-op Diagnosis: same as pre-op Procedures performed: 1. Cystoscopy. 2. Transurethral resection of the prostate. Anesthesia: GETA Primary Surgeon: Yoseph Cha Complications: None Estimated blood loss (mL): 10 Findings: Significant trilobar obstruction of the prostate Specimens: Prostate chips Drains: 22 Romanian three-way coud? Fischer in the bladder taped to traction and CBI Indications for Procedures: This gentleman has BPH with LUTS that is refractory to medical management. He recently went into urinary retention for which he has a catheter placed. He is strongly desirous for TURP. He has signed an informed consent after all risks were explained to him. Some of these include bleeding, infection, anesthesia, urinary incontinence both temporary and permanent, retrograde ejaculation, erectile dysfunction, possible need for subsequent prostate procedures just to name a few. Detailed description of Procedure: The patient was brought to the operating room and placed on the operating room table in the supine position. SCDs were placed on the lower extremities and turned on and functioning during the entire case. Timeout was done by all parties in the room. We all agreed upon the patient's identification and the planned procedures for this patient. Genn. anesthesia was then administered. The patient was then repositioned into the modified dorsal lithotomy position. All pressure points were satisfactorily padded. Genitalia were sterilely prepped and draped in usual fashion. I started by passing a 26 Romanian Olympus resectoscope with a standard bipolar loop electrode per urethra and into the bladder. The ureteral orifices were marked with the loop electrode. I started on the capacious median lobe and uniformly resected this down to the bladder neck level. I then resected posteriorly from the bladder neck to the Veru. I then resected the left lateral lobe from the bladder neck to the Veru level. The right lateral lobe and the anterior tissue were similarly resected. These lateral lobes were very capacious also. The scope was brought back to the apex and this was opened up. The bladder neck was opened up at the 5 and 7:00 positions. I then coagulated the entire resection bed with a button electrode. The Ilich evacuator was used to get all of the chips out of the bladder and these were sent for permanent sections. Upon completion with the scope at the apex the prostatic urethra and bladder neck were now wide open. There was no bleeding. There were no chips remaining in the bladder. The scope was then removed. I then placed a 22 Romanian three-way coud? Fischer in the bladder. 2 cc of fluid was placed in the balloon and it was taped to traction. CBI was started and it irrigated clear. He was then transferred to a [place] bed and wheeled to PACU in stable condition. Urinary Catheter Management Urinary Catheter Management Urethral: Cath placed during this visit: no
[2023-03-27] MEDS: SOLIFENACIN SUCCINATE 10 MG TABLET PO (13:04)
[2023-03-27] MEDS: 0.9 % SODIUM CHLORIDE 1,000 ML 80 ML IV (13:11)
[2023-03-27] MEDS: CIPROFLOXACIN HCL 500 MG TABLET PO ×2 (14:01→20:34)
[2023-03-27] MEDS: SODIUM CHLORIDE IRRIG SOLUTION 3,000 ML 3000 ML IRR ×11 (14:02→23:23)
[2023-03-27] MEDS: CARVEDILOL 6.25 MG TABLET PO (16:25)
[2023-03-27] MEDS: CEFAZOLIN SODIUM/DEXTROSE,ISO 1 GM/50 ML IV.SOLN IV ×2 (16:25→22:07)
[2023-03-27] MEDS: TAMSULOSIN HCL 0.4 MG CAPSULE PO (22:06)
[2023-03-28] MEDS: SODIUM CHLORIDE IRRIG SOLUTION 3,000 ML 3000 ML IRR ×5 (00:20→03:56)
[2023-03-28] MEDS: 0.9 % SODIUM CHLORIDE 1,000 ML 80 ML IV (01:06)
--- NOTE | 2023-03-28 04:59 | PC.NURSE ---
Traction released from left leg CBI. Flow rate slowed
[2023-03-28 05:35] VITALS: BP 122/70; PULSE 99; RESP 18; TEMP 36.6; O2SAT 90
--- NOTE | 2023-03-28 06:22 | PC.NURSE ---
CBI stopped and clamped. Leg monge attached and patient ambulated robertson. Tolerated very well and had no complaints of pain. Sitting in chair with all light in reach
[2023-03-28] MEDS: EZETIMIBE 10 MG TABLET PO (08:35)
[2023-03-28] MEDS: LISINOPRIL 20 MG TABLET PO (08:35)
[2023-03-28] MEDS: CIPROFLOXACIN HCL 500 MG TABLET PO (08:35)
[2023-03-28] MEDS: DUTASTERIDE 0.5 MG CAPSULE PO (08:35)
[2023-03-28] MEDS: SOLIFENACIN SUCCINATE 10 MG TABLET PO (08:36)
[2023-03-28] MEDS: CARVEDILOL 6.25 MG TABLET PO (08:36)
== END 2023-03-28 09:00 | disposition home or self-care (01) ==
LOC: SURGOUT 12:51 → MS 03-28 06:42
PROVIDERS: PCP Internal Medicine; Visit Provider Urology
PROC: (CPT 52601; principal; 2023-03-27 11:40)
DX: N40.1 Benign prostatic hyperplasia with lower urinary tract symptoms (principal); R33.9 Retention of urine, unspecified; I10 Essential (primary) hypertension; R97.20 Elevated prostate specific antigen [PSA]; R39.14 Feeling of incomplete bladder emptying; N41.9 Inflammatory disease of prostate, unspecified; Z79.899 Other long term (current) drug therapy
CPT/HCPCS: 52601; 36415; 88305; 88344; 96365; J0690; J1100; J2250; J2371; J2405; J2704; J3010

== ENCOUNTER 2025-02-24 06:26 | Outpatient (OUT) | payer MEDICARE, SELFPAY ==
--- OUTSIDE RECORDS SUMMARY | 2025-02-23 05:19 | XMS_ITS | Continuity of Care Document ---
Author Organization [facility] Address [address] [place] [address] Phone Care Team Providers Care Lineman A Class Name Role Phone Ayden Xavi SHUKLA Primary Care Provider Xavi Hensley DO Attending Provider [phone] Care Teams Patient Care Team Team Status: Active Member Role/Relationship Status Dates Xavi Hensley DO Primary Care Provider Active Patient Care Team Team Status: Inactive Member Role/Relationship Status Dates Xavi Hensley DO Primary Care Provider Active Start: February 23, 2025 End: February 23enjaapril Hensley DOAttending ProviderActiveStart: February 23, 2025 End: February 23, 2025 Chief Complaint and Reason for Visit Chief Complaint Admit Date Wellness February 23, 2025 9 :23am Reason for Visit Admit Date Hypercholesterolemia February 23, 2025 9:23am Hypertension February 23, 2025 9 :23am Medicare annual wellness visit, subseque nt February 23, 2025 9:23am Screening PSA (prostate specific antigen ) February 23, 2025 9:23am Type 2 diabetes mellitus with hyperglyce goyo February 23, 2025 9:23am Allergies, Adverse Reactions, Alerts Allergen Type Severity Reaction Last Updated Verified Status Ulhcyus-FBD-FiI Reductase Inhibitor Allergy Unknown vision problems February 9:29am Yes Active amlodipine Allergy Unknown jaw tightening February 232024 9:29am Yes Active AmLODIPine & Diet Manage Prod Allergy Unknown Unknown Reaction February 23, 2024 11:02am No Active Social History Smoking Status Status Start Date End Date Date of Observa tion Never smoked tobacco (finding) May 12, 2024 7:33am Observation Status Observation Response Date of Response Legal Sex [facility] (finding) [facility] Family History Relationship Condition Age at Onset Recorded Date/T rip mother Heart disease Unknown Problems Active Problems Problem Diagnosis/Recorded Date Onset Date Status C harriet Medicare annual wellness vis it, subsequent February 20, 2025 1:11pm Unknown Active Screening PSA (prostate specific antigen)February 09, 2024 6:24pmUnknownActive PSA: 2.37 - 11/2018, 3.71 - 08/2019, 4.12 - 11/2021, 5.32 - 02/2022, 3.8 (23%) - 02/2022, 1.69 - 01/2023, 0.28 - 01/2024Type 2 diabetes mellitus with hyperglycemiaFebruary 09, 2024 6:24pmUnknownActiveHypercholesterolemiaNovember 2023 6:23pmUnknownActiveHypertensionNov2023 6:23pmUnknown Active Medications Medication Status Dose Units Route Directions Qty Days Refills S tart Date Stop Date End Date Reason(s) Instructions Adherence Ezetimibe 10 mg tablet Discontinued 0 .ROUTE.QQCMMXO135Oubgbhyr 2023 7:14pmJanuary 2024 12:58pmTAKE 1 TABLET DAILYCarvedilol 6.25 mg tabletDiscontinued0.ROUTE.FKNTUCU4907Qbwxagft 2023 7:15pmJanuary 2024 12:58pmTAKE 1 TABLET TWICE A DAYLisinopril 20 mg ksycfhJklqjfxvrlud25WXUOXbyjx76092Jvkgmfbt 2023 7:24pmJanuary 2024 1:03pmSod Picosulf-Mag Ox-Citric Ac (Clenpiq) 10 mg-3.5 gram- 12 gram/175 mL prpdirysYqhqcbwqjjwo857HIPD.DHDHGLZ62244Eeaafcjz 2023 12:00amDecember 2024 9:33amFollow instructions given by officeEzetimibe 10 mg tablet Kpztdarixmww52TAEFKyezc58406Nkmcbxv 2024 12:58pmJanuary 2024 5:25pm Carvedilol 6.25 mg tabletDiscontinued6.25MGPOTwice lbgvw547564Cfhgkas 2024 12:58pmJanuary 2024 5:25pmEzetimibe 10 mg xbnoriVokcvyjnqgut12YEBQRagci52 901January 2024 5:24pmAugust 2024 4:52pmCarvedilol 6.25 mg tablet Discontinued6.25MGPOTwice goytv353810Sxlzqsl 2024 5:25pmSeptember 2024 6:42amLisinopril 20 mg htvbbqGjjdkusbguei63TTIEAnkrm84087Olsbpvw 2024 1:03pmAugust 2024 12:13pmTadalafil 20 mg clbtumUyiqxo12DGNJEsqjq as needed for sexual unmosrcb95404Syore 2024 9:24amadminister approximately 30min before sexual activity; do not use more than 1 dose per 24hrsComplies with drug therapyLisinopril 20 mg ojhwydBksgnj06KMKTEbwsr26285Jykjco 2024 12:13pm Complies with drug therapyEzetimibe 10 mg iljxfoGwxxpmzzcvru87PSPPQtumo77601 November 01, 2024 4:51pmSeptember 2024 6:42amEzetimibe 10 mg tabletActive0 .ROUTE.DAVMVXU891Tpakhnbqv2024 6:41amTAKE 1 TABLET BY MOUTH DAILYComplies with drug therapyCarvedilol 6.25 mg tabletActive0.ROUTE.VOHTJYL5072Ldjwphpie2024 6:41amTAKE 1 TABLET BY MOUTH TWICE A DAYComplies with drug therapy Lisinopril 20 mg bvcifrYatodafneayv87DEMSOybxlQqfsnxhu 2023 12:00am May 22, 2023 7:24pmEzetimibe 10 mg lbbkpsIxtpazljvqgy19AXTSMhgokVekqdhhn 2023 12:00amFebruary 2023 7:15pmCarvedilol 6.25 mg tablet Discontinued6.25MGPOTwice dailyFebruary 2023 12:00amFebruary 2023 7:15pmDutasteride 0.5 mg capsuleActive0.5JWFTGhqii53018Uppmjjlv 2023 12:00amComplies with drug therapyTadalafil (Cialis) 10 mg oayovfChzqrpsheckf45NG PODaily as neededDece2023 12:00amDecember 2023 11:29amadminister approximately 30min before sexual activity; do not use more than 1 dose per 24hrsAscorbate Calcium (Vitamin C) 500 mg sulkseJotgqmsaeygu984KHZWGbuhvVhuwohtp 2023 12:00amFebruary 2024 8:30amCholecalciferol (Vitamin D3) 25 mcg (1,000 unit) wpgqiawNawnxxvicvzy64KHNUEQcsxpWitifeez 2023 12:00amFebruary 2024 8:30amMagnesium Gluconate 12.5 mg magne- sium (250 mg) tcfdjbTnjblz851 MGPODailyDecember 2023 12:00amComplies with drug therapyBlood Sugar Diagnostic (Freestyle Lite Strips) stripActive0.Pnfrb677Ttvdgfuo 2023 12:00amType 2 diabetes mellitus with hyperglycemia Type 2 diabetes mellitus with hyperglycemiaUse to test home BS qdMultivitamin giokoyJqmcbr3UNZOGXpkuvLlceiukz 2023 12:00amComplies with drug therapyOmega 1-Qyi-Caa-Fish Oil (Fish Oil) 60-90-500 mg jvculoqPrqlwo2HDDFFFllsxEdlyhudc 2023 12:00amComplies with drug therapyTadalafil (Cialis) 10 mg tablet Xwedzmnttgdb41SVVAHnfsf as needed for sexual mqbgsbmh76710Cbbxvdxr 2023 11:28amMarch 2024 9:25amadminister approximately 30min before sexual activity; do not use more than 1 dose per 24hrsApple Cider Vinegar 600 mg capsuleActiveMGPODecember 2024 12:00amComplies with drug therapy Immunizations Immunization Event Date Not Given Reason Dose Number Drying Machine Operator Lot Number Reason(s) Given Vaccine Information Statement (VIS) Detail Administration Location COVID-19 Dipak Garrett (fav.or.it) June 02 COVID-19 mRNA, Comirnaty (Pfizer)June 23OVID-19 mRNA, Comirnaty (Pfizer)July 14OVID-19 mRNA, Comirnaty (Pfizer)February 23, 2021 Vital Signs Vital Reading Result Reference Range Collection Date/Time Height 66 [in_i] February 23, 2025 9:03nhWseask03.34 kgDece2024 9:33amHeart Rate69 /wjo59-843Xgwhhgyo 3rd, 2025 9:33amRespiratory rate12 /mas20-60Ngypnzeg 3rd, 2025 9:33amBP Aktwohgr091 mm[Hg]100-140Dece2024 9:33amBP Hlnryikoa03 mm[Hg]60-100Decemb2024 9:33amBMI (Body Mass Index)32.5 kg/o7Sfgijbdp2024 9:33am Advance Directives Advance Directive Response Recorded Date/ Time Advance Directives Yes November 2:50pm Insurance Providers Guarantor Bob Mae Address [address] [place] [id number] Info.Home Phone: Coverage Status Update:2024 Payer Group Member ID Coverage Type Subscriber Relationship to Subscriber Effective Date Expiration Date MMO [id number] R Wagner Id: [id number] [address] [place] [phone] Home Phone: Email: [email or web address] Encounters Encounter Location(s) Arrival/Admit Date Discharge/Departure Date Discharge/Departure Disposition Provider(s) Departed Physician/ Provider Office Visit -[facility] February 23, 2025 9:23am February 23, 2025 10:06am Discharged to home care or self care (routine discharge) Xavi Hensley DO Recent Diagnosis Onset Date Admit Date Hypercholesterolemia Unknown February 9:23am Hypertension Unknown February 23 9:23am Medicare annual wellness visit, subsequent Unkno wn February 23, 2025 9:23am Screening PSA (prostate specific antigen) Unknow n February 23, 2025 9:23am Type 2 diabetes mellitus with hyperglycemia Unkn own February 23, 2025 9:23am Assessments Diagnosis Onset Date Resolution Status Admit Date Hypercholesterolemia acuteFebruary 23, 2025 9:23amHypertensionacuteFebruary 23, 2025 9:23amMedicare annual wellness visit, subsequentacuteFebruary 23, 2025 9:23amScreening PSA (prostate specific antigen)acuteFebruary 23, 2025 9:23amType 2 diabetes mellitus with hyperglycemiaacuteFebruary 23, 2025 9:23am Plan of Treatment Author Xavi Hensley [place] [facility]20[facility] 10:05amI have instructed this patient to follow a comprehensive diabetic treatment plan. I have also instructed them to check their feet daily for calluses and nonhealing ulcers. I have instructed them to have a yearly dilated eye examination. I have reviewed their treatment goals: SBP less than 130, LDL less than 100, FBS less than 140, A1C less than 7%. I have instructed them to maintain a home BS log and bring the results to each of their office visits for review. I have explained the importance of routine monitoring of their A1C, Microalbumin and Lipids. I have explained the benefits of well controlled diabetes in preventing micro and macrovascular complications. Due for A1C and urine for microalbumin. I have instructed this patient to consume a healthy, low-fat, low-salt diet. I have also encouraged them to continue exercise with weight loss to achieve/maintain a BMI < 30. I have instructed this patient on the correct procedure for obtaining home BP measurements:? - rest for 5 minutes w/o talking. - positioned w/ feet on floor and arms supported. - average best 2/3 readings w/ goal < 135/85. - update office w/ home readings in 2 weeks. Continue Coreg without interruption I have instructed this patient on a low fat, high fiber diet and exercise. I have discussed the primary and secondary prevention benefits attributed to lowering LDL cholesterol. I have also discussed the medical treatment of elevated cholesterol, which is based on the 10 year ASCVD risk. Continue Zetia without interruption I have recommended yearly PSA testing. I have informed him that the PSA can be elevated w/ cancer, infection and enlarged prostates. I have explained to the patient, that If his PSA is elevated, while there are many causes, referral will be recommended to r/o cancer. He would be referred to Urology, who may recommend an MRI, TRUS/bx or possibly continued monitoring. He is agreeable to this plan of action. He is taking Dutasteride (double PSA) PSA: 2.37 - 11/2018, 3.71 - 08/2019, 4.12 - 11/2021, 5.32 - 02/2022, 3.8 (23%) - 02/2022, 1.69 - 01/2023, 0.28 - 01/2024 I have instructed this patient on the recommended lifestyle changes, which includes a low fat, high fiber diet along with a regular exercise routine. I have also reviewed the recommended age-appropriate preventive testing for this patient. I have also reviewed the recommended vaccines for their age and risk factors. Future Tests Future scheduled test information is unavailable Pending Tests Test Name Ordered Date Scheduled Date Comprehensive Metabolic Panel February 23, 2025 10:00am Future Visits Future appointment information is unavailable Future Procedures Procedure Name Ordered Date Scheduled Date A1C with Estimated Average Glu February 23 10:00am Complete Blood Count Auto DiffDecember 2024 10:00amLipid PanelDecember 2024 10:00amPSA Screen (Yearly Only)February 23, 2025 10:00am Future Medications Future medication information is unavailable Patient Instructions Patient instructions are unavailable
--- OUTSIDE RECORDS SUMMARY | 2025-02-24 06:30 | XMS_ITS | CCD ---
Author Organization [facility] CliniSyvt Care Team Providers Care Space Sciences Director Name Role Phone LANIE CRUZ BENJAMIN E Unavailable Unavailable Ayden, Xavi Garcia Unavailable Unavailable Unavailable AYDEN, DR STAFFORD Primary Care Unavailable REQUEST, DR SIMPSON LISTED Admitting Unavaila ble REQUEST, DR SIMPSON LISTED Attending Unavaila ble AYDEN, DR STAFFORD Consulting Unavailable REQUEST, DR SMIPSON LISTED Admitting Unavaila ble REQUEST, DR SIMPSON LISTED Attending Unavaila ble AYDEN, DR STAFFORD Primary Care Unavailable REQUEST, DR SIMPSON LISTED Consulting Unavaila ble MAY, EVA Cano Admitting Unavailable MAY, EVA Cano Attending Unavailable AYDEN, DR STAFFORD Primary Care Unavailable ZIEBER, DR ROOSEVELT Gomez Consulting Unavailable HIGHLLAKSHMI, EVA Cano Consulting Unavailable AYDEN, DR STAFFORD Admitting Unavailable AYDEN, DR STAFFORD Attending Unavailable AYDEN, DR STAFFORD Primary Care Unavailable AYDEN, DR STAFFORD Consulting Unavailable AYDEN, DR STAFFORD Admitting Unavailable BALL, DR STAFFORD Attending Unavailable BALL, DR STAFFORD Primary Care Unavailable AYDEN, DR STAFFORD Consulting Unavailable WEST, DR JESSICA Wren Consulting XAVI Jc Primary Care Physician Ayden, Dr. Xavi Finney Primary Care Landon Cruz, Dr. Lanie Carlton Referring Radhika vailable Anthony, Dr. Lanie Carlton Attending Radhika vailable Anthony, Dr. Lanie Carlton Attending Radhika vailable Ayden, Dr. Xavi Finney Primary Care Landon Cruz, Dr. Lanie Carlton Referring Radhika Xavi Garcia Unavailable LANIE CRUZ Attending Unavailable XAVI HENSLEY Primary Care Unavailable Yoseph CHA Attending Unavailable Yoseph CHA Attending Unavailable Yoseph CHA Attending Unavailable Yoseph CHA Attending Unavailable Yoseph CHA Attending Unavailable Kelsea Griffith Attending Unavailable Yoseph CHA Attending Unavailable Yoseph CHA Attending Unavailable Ball Xavi SHUKLA E Primary Care Provider Michael Partida Attending Unavailable Michael Partida Admitting Unavailable Xavi Hensley Primary Care Unavailable Xavi Hensley DO Primary Care Provider Michael Partida MD Attending Provider [phone] Allergies Allergy ClassificationReported Allergen(s)Allergy TypeDate of OnsetReaction(s) Facility (2 sources)AmLODIPine & Diet Manage Prod *CALCIUM CHANNEL BLOPropensity to adverse reactionsUnkRoger Williams Medical Center [employer] Other (2 sources)Statins Depletion *DIETARY PRODUCTS/DIETARY MANAGEPropensity to adverse reactionsCranston General Hospital [employer] Other (1 source)No Known Medication Allergies; Translations: [No Known Medication Allergies]Propensity to adverse reactions (disorder)[facility] Rep[facility] (1 source)amLODIPineDrug Byauqum26-34-5992hep tightening[facility] (1 source)Cjbngup-AKK-NbB Reductase InhibitorAllergy to kbejrlmtf74-79-5308 vision problemsSub[facility] Hospital & [facility] (1 source)AmLODIPine & Diet Manage ProdAllergy to vulvstgza69-56-0891Nwcalqb ReactionSuburban Community Hospital & [facility] Medications Current Medications MedicationDrug Class(es)DatesSig (Normalized)Sig (Original)Apple Cider Vinegar (1 source)APPLE CIDER VINEGAR ORAL Take by mouth. ActiveAscorbic Acid (9 sources)Vitamin CStart: 23-39-6672Bmpelsy C Daily, Refills(s) 0 Start Date: 04/29/22 Status: Orderedcarvedilol 6.25 mg oral tablet (20 sources)alpha-Adrenergic Zen, beta-Adrenergic BlockerStart: 04-05-2024 End: 99-78-8697qzrz 1 tablet by mouth twice dailyCarvedilol 6.25 mg tablet Active 6.25 MG PO Twice daily 180 90 April 05, 2024 5:25pmStart: 05-22-2023 End: 09-36-4774Xbagtwvrgk 6.25 mg tablet Discontinued 0 .ROUTE .COMPLEX 180 May 22, 2023 7:15pm April 05, 2024 12:58pm TAKE 1 TABLET TWICE A DAY Start: 04-29-2022 End: 20-90-6244yhap 1 tablet by mouth twice dailyCarvedilol 6.25 mg tablet Discontinued 6.25 MG PO Twice daily May 22, 2023 12:00am May 22, 2023 7:15pmCentrum Silver (9 sources)Start: 49-94-7707Qsoowlr Silver Oral, Daily, Refill(s) 0 Start Date: 04/29/22 Status: Orderedciprofloxacin 500 mg oral tablet (3 sources)Quinolone AntimicrobialStart: 03-03-2023 End: 71-18-3712jgjx 1 tablet by mouth twice dailyCipro 500 mg Tab 500 mg = 1 tab(s), Oral, BID, X 3 week(s), # 42 tab(s), Refills(s) 0, [facility]acy: [facility] #[id number], 168, cm, 03/03/23 11:05:00 EST, Height/Length Dosing, 85, kg, 03/03/23 11:05:00 EST, Weight Dosing Start Date: 03/03/23 Stop Date: 03/24/23 Status: Ordereddoxycycline hyclate 100 mg oral capsule (2 sources)Tetracycline-class DrugStart: 05-21-2022 End: 42-94-3149yfeg 1 capsule by mouth every twelve hoursdoxycycline hyclate 100 mg Cap 100 mg = 1 cap(s), Oral, q12hr, X 30 day(s), # 60 cap(s), Refills(s)1, [facility]: [facility][id number], 168, cm, 05/14/22 10:37:00 EST, Height/Length Dosing, 86, kg, 04/29/22 9:16:00 EST, Weight Dosing Start Date: 05/21/22 Stop Date: 07/20/22 Status: OrderedStart: 04-29-2022 End: 59-38-4830hecu 1 capsule by mouth twice dailydoxycycline hyclate 100 mg Cap 100 mg = 1 cap(s), Oral, BID, X 3 week(s), # 42 cap(s), Refills(s) 0, [facility]acy: [facility] #[id number], 168, cm, 04/29/22 9:16:00 EST, Height/Length Dosing, 86, kg, 04/29/22 9:16:00 EST, Weight Dosing Start Date: 04/29/22 Stop Date: 05/20/22 Status: Ordereddutasteride 0.5 mg oral capsule (16 sources)5-alpha Reductase InhibitorStart: 67-60-6056ybqk 1 capsule by mouth once dailyDutasteride 0.5 mg capsule Active 0.5 MG PO Daily February 23, 2024 12:00amStart: 97-24-7554laan 1 capsule by mouth once dailydutasteride 0.5 mg Cap 0.5 mg = 1 cap(s), Oral, Daily, # 90 cap(s), Refills(s) 3, Pharmacy: [facility], 168, cm, 05/14/22 10:37:00 EST, Height/Length Dosing, 86, kg, 04/29/22 9:16:00 EST, Weight Dosing Start Date: 08/08/22 Status: Orderedtake 1 capsule by mouth once dailydutasteride (AVODART ORAL) Take 1 capsule by mouth once daily. ActiveAvodart CAPS TAKE 1 CAPSULE Daily Quantity: 0 Refills: 0 Ordered: 08-Oct-2022 DO Activeezetimibe 10 mg oral tablet (20 sources)Dietary Cholesterol Absorption InhibitorStart: 04-05-2024 End: 76-31-1547xfgi 1 tablet by mouth once dailyEzetimibe 10 mg tablet Active 10 MG PO Daily April 05, 2024 5:24pmStart: 05-22-2023 End: 43-08-7542Wqqjnjcek 10 mg tablet Discontinued 0 .ROUTE .COMPLEX May 22, 2023 7:14pm April 05, 2024 12:58pm TAKE 1 TABLET DAILYStart: 04-29-2022 End: 16-13-8004hqmo 1 tablet by mouth once dailyEzetimibe 10 mg tablet Discontinued 10 MG PO Daily May 22, 2023 12:00am May 22, 2023 7 :15pmFish Oils (9 sources)Start: 53-68-4245Dnvl Oil Oral, Refill(s) 0 Start Date: 04/29/22 Status: Orderedibuprofen 800 mg oral tablet (11 sources)Nonsteroidal Anti-inflammatory DrugStart: 40-19-4990cmtfppmxc 800 mg Tab Refills(s) 0 Start Date: 04/29/22 Status: OrderedMAGNESIUM GLUCONATE (9 sources)Start: 33-23-9020ofopzipio gluconate Oral, BID, Refills(s) 0 Start Date: 04/29/22 Status: OrderedMagnesium Gluconate 12.5 mg magne- sium (250 mg) tablet (1 source)Start: 22-77-0098cedz 1 tablet by mouth once dailyMagnesium Gluconate 12.5 mg magne- sium (250 mg) tablet Active 500 MG PO Daily February 23, 2024 12 :00ammagnesium oxide 250 mg oral tablet (5 sources)take 1 tablet by mouth once dailymagnesium oxide (Mag-Ox) 250 mg magnesium tablet Take 1 tablet (250 mg) by mouth once daily. Activemultivitamin (Daily Multi-Vitamin) tablet (2 sources)take 1 tablet by mouth once dailymultivitamin (Daily Multi-Vitamin) tablet Take 1 tablet by mouth once daily. ActiveMultivitamin tablet (1 source)Start: 19-32-4422dxcx 1 tablet by mouth once dailyMultivitamin tablet Active 1 TAB PO Daily February 23, 2024 12:00amomega 4-sif-znq-fish oil (Fish OiL) 1,200 (144-216) mg capsule (2 sources)take 2 capsules by mouth once dailyomega 2-qfy-pdt-fish oil (Fish OiL) 1,200 (144-216) mg capsule Take 2 capsules (2,400 mg) by mouth once daily. ActiveOmega 9-Qvf-Xav-Fish Oil (Fish Oil) 60-90-500 mg capsule (1 source)Start: 99-55-7427gcjj 1 capsule by mouth once dailyOmega 1-Imh-Nlw-Fish Oil (Fish Oil) 60-90-500 mg capsule Active 1 CAP PO Daily February 23, 2024 12:00amPrevagen (9 sources)Start: 25-07-8320susv 1 ug by mouth once dailyPrevagen mcg, Oral, Daily, Refills(s) 0 Start Date: 04/29/22 Status: OrderedSod Picosulf-Mag Ox-Citric Ac (1 source)Start: 66-57-1133Zqn Picosulf-Mag Ox-Citric Ac (Clenpiq) 10 mg-3.5 gram- 12 gram/175 mL solution Active 175 ML PO .COMPLEX 350 1 March 03, 2024 12:00am Follow instructions given by office Completed/Discontinued Medications MedicationDrug Class(es)DatesSig (Normalized)Sig (Original)calcium ascorbate 500 mg oral tablet (1 source)Start: 02-23-2024 End: 44-78-1502btyv 1 tablet by mouth once dailyAscorbate Calcium (Vitamin C) 500 mg tablet Discontinued 500 MG PO Daily February 23, 2024 12:00amFebruary 2024 8:30amcholecalciferol 0.025 mg oral capsule (1 source)Vitamin DStart: 02-23-2024 End: 67-09-0700doxn 1 capsule by mouth once dailyCholecalciferol (Vitamin D3) 25 mcg (1,000 unit) capsule Discontinued 25 MCG PO Daily February 12:00am April 28, 2024 8:30amesomeprazole 40 mg oral tablet (2 sources)Proton Pump InhibitorStart: 06-14-2248eqjr 1 capsule by mouth once daily as neededEsomeprazole Magnesium 40MG Esomeprazole Magnesium 40MG, 1 (one) Capsule Capsule Capsule daily on empty stomach followed in 30 minutes by bkt # 0, 11/28/2020, No Refill. Active Oral daily on empty stomach followed in 30 minutes by bkt for 0 07 Nov, 2020 Not-Taking/PRNFish Oil 1200 MG Oral Capsule Delayed Release (3 sources)take 2 capsules by mouth once dailyFish Oil 1200 MG Oral Capsule Delayed Release 2 daily Quantity: 0 Refills: 0 Ordered: 17-Oct-2021 DO Active levoFLOXacin 500 mg oral tablet (2 sources)Quinolone AntimicrobialStart: 56-70-0582fjvj 1 tablet by mouth once daily as neededlevoFLOXacin 500mg levoFLOXacin 500mg, 1 (one) tablet tablet daily # 20, 03/07/2022, No Refill. Active oral daily for 0 Feb, Not-Taking/PRNlisinopril 20 mg oral tablet (19 sources)Angiotensin Converting Enzyme InhibitorStart: 04-29-2022 End: 57-56-3582jldj 1 tablet by mouth once dailyLisinopril 20 mg tablet Discontinued 20 MG PO Daily May 22, 2023 12:00am May 22, 2023 7:24pmmeloxicam 15 mg oral tablet (2 sources)Nonsteroidal Anti-inflammatory DrugStart: 65-68-9506zvvp 1 tablet by mouth once daily as neededMeloxicam 15 MG meloxicam 15MG, 1 (one) Tablet Tablet Tablet daily # 30, 11/19/2021, Ref. x2. Active Oral daily for 0 Oct, Not-Taking/PRNMulti-Vitamin Daily Oral Tablet (1 source)take 1 tablet by mouth once dailyMulti-Vitamin Daily Oral Tablet TAKE 1 TABLET DAILY. Quantity: 0 Refills: 0 Ordered: 17-Oct-2021 DOActiveMulti- Vitamin Daily TABS (2 sources)Multi-Vitamin Daily TABS TAKE 1 TABLET DAILY. Quantity: 0 Refills: 0 Ordered: 17-Oct-2021 DO ActiveSuprep Bowel Prep . (2 sources)Start: 40-09-1026Acfhjr Bowel Prep . as directed Orally May, Not-Taking/PRNStart: 48-02-0356Rcbtdy Bowel Prep . as directed Orally May, Not-Takingtadalafil 10 mg oral tablet (13 sources)Phosphodiesterase 5 InhibitorStart: 04-29-2022 End: 29-47-8131rvhk 1 tablet by mouth every twenty-four hoursTadalafil (Cialis) 10 mg tablet Discontinued 10 MG PO Daily as needed February 23, 2024 12:00am February 23, 2024 11:29am administer approximately 30min before sexual activity; do not use more than1 dose per 24hrsStart: 73-03-7982Kaifxy 20 MG 1 tablet as needed Oral PRN ED for 90 days Nov, ActiveStart: 12-04-2021 Cialis 20MG Cialis 20MG, 1 (one) Tablet Tablet Tablet PRN ED # 32, 12/04/2021, Ref. x3. Active OralPRN ED for 0 Nov, Not-Takingtamsulosin hydrochloride 0.4 mg oral capsule (15 sources)alpha-Adrenergic BlockerStart: 95-08-0751mazbziklhn 0.4mg tamsulosin 0.4mg, 1 (one) Capsule Capsule Capsule in evening # 30, 01/17/2022, No Refill. Active oral in evening for 0 Dec, Not-Taking/PRN End: 11-70-6047wuge 1 capsule by mouth twice dailytamsulosin (Flomax) 0.4 mg 24 hr capsule Take 1 capsule (0.4 mg) by mouth 2 times a day. 10/08/2023 Discontinued (Therapy completed)take 1 capsule by mouth once dailyTamsulosin HCl - 0.4 MG Oral Capsule Take 1 capsule by mouth daily Quantity: 90 Refills: 0 Ordered:17-Oct-2021 DO Active Problems Active Problems Problem ClassificationProblemDateDocumented DateEpisodic/ChronicCoronary atherosclerosis and other heart disease (1 source)Coronary atherosclerosis and other heart diseaseOnset: 01-29-2018 Diabetes mellitus with complications (5 sources)Hyperglycemia due to type 2 diabetes mellitus; Translations: [Type 2 diabetes mellitus with hyperglycemia]ChronicDiabetes mellitus without complication (1 source)Prediabetes; Translations: [Prediabetes]28-26-2524PkvpmnfxJovdlmyxc of lipid metabolism (16 sources)Hyperlipidemia; Translations: [Other and unspecified hyperlipidemia] Onset: 12-58-6653BaakgmiPsegldxik hypertension (20 sources)Essential hypertension; Translations: [Unspecified essential hypertension]Onset: 864350-45-6556QwewfyoVaohtszne hypertension (1 source)Essential hypertensionOnset: 86-25-8962Utrqbhczocddd symptoms and ill- defined conditions (20 sources)Gross hematuria; Translations: [Blood in urine]Onset: 03-19-2022 EpisodicHyperplasia of prostate (20 sources)Benign prostatic hypertrophy without outflow obstruction; Translations: [Benign prostatic hyperplasia without lower urinary tract symptoms]Onset: 12-82-4162UmrabmpGekftilgdixx conditions of male genital organs (11 sources)Prostatitis; Translations: [Inflammatory disease of prostate, unspecified]Onset: 47-30-5745FwailolhFjomyuavivt chest pain (1 source)Other chest pain; Translations: [Other chest pain]Onset: 01-29-2018 EpisodicOther liver diseases (1 source)Fatty (change of) liver, not elsewhere classified; Translations: [FATTY CHANGE LIVER NEC]Onset: 23-99-4181XjujebuOknhp male genital disorders (2 sources)History of cxtftzedbop03-45-8366PjrxmyhaVwlnh nutritional; endocrine; and metabolic disorders (3 sources)Obesity; Translations: [Obesity, unspecified]ChronicOther nutritional; endocrine; and metabolic disorders (2 sources)Body mass index (BMI) 31.0-31.9, adult; Translations: [Body mass index (BMI) 31.0-31.9, adult]Onset: 26-77-6376KentvbwIqlhh nutritional; endocrine; and metabolic disorders (4 sources)Body mass index 30+ - obesity; Translations: [Body mass index (BMI) 31.0-31.9, adult]Onset: 752779-28-8841KzkhilgBlcdf nutritional; endocrine; and metabolic disorders (2 sources)Obese class I; Translations: [Obesity, unspecified]97-69-5224Nzrkaxb Other screening for suspected conditions (not mental disorders or infectious disease) (20 sources)Elevated prostate specific antigen [PSA]; Translations: [Raised prostate specific antigen]Onset: 98-44-1146EjhwdhusHlwrbfm on above:PSA: 2.37 - 11/2018, 3.71 - 08/2019, 4.12 - 11/2021, 5.32 - 02/2022, 3.8 (23%) - 02/2022, 1.69 - 01/2023, 0.28 - 4Residual codes; unclassified (2 sources)Other specified health status; Translations: [Other specified health status]Onset: 70-32-0321ZvvlviduMynydurq codes; unclassified (4 sources)Never smoked tobacco; Translations: [Other specified health status] Onset: 185915-73-3119XhvhfturXzshhvpjnkoo (2 sources)Other chest pain / R07.89(ICD-9)Onset: 39-86-8717Rdaxwjzfkwqy (1 source)Dyspnea, unspecified / R06.00(ICD-9)Onset: 71-50-8231Rqsnbihzzmzl (1 source)Obesity, unspecified / E66.9(ICD-9)Onset: 08-24-4218Gyluqsdasfag (1 source)Pure hypercholesterolemia, unspecified / E78.00(ICD-9)Onset: 86-50-7121Pvjdprejbpsa (6 sources)Finding of sensation of zbhkgyh48-00-2847 Past or Other Problems Problem ClassificationProblemDateDocumented DateEpisodic/ChronicOther connective tissue disease (4 sources)Pain in right foot; Translations: [PAIN IN RIGHT FOOT]Onset: 79-99-8698EwmbzydtGexxb connective tissue disease (1 source)Calcaneal spur, right foot; Translations: [CALCANEAL SPUR RIGHT FOOT] Onset: 87-38-8827MtoqtqcyWmbjy lower respiratory disease (3 sources)Savxevjdtxl-xjhpujudjn-ewlpsk inhibitor adverse reaction; Translations: [Cough] Resolved: 46-02-3763WkntwzzpVzyrthafemq injury; contusion (1 source)Superficial foreign body, right foot, initial encounter; Translations: [SUPERFICIAL FB RT FOOT INITIAL]Onset: 42-51-6640IfwqtgqcWbfgvucinteu (3 sources)Never smoked tobacco; Translations: [Never smoker]Unclassified (2 sources)Onset: 10-08-2023 Resolved: Results Test NameValueInterpretationReference RangeFacilityGlucose Glucometer (dC) [Mass/Vol]Ordered By: Michael Partida on 35-69-7588Hovcibr [Mass/Vol]Capillary blood glucose measurement by glucometer (mass/volume)[facility] HospitalComment on above:Random Glucose Reference Range is dependent on time and content of last meal. Glucose of more than 200 mg/dL in a nonstressed, ambulatory subject supports the diagnosis of Diabetes Mellitus.Glucose Poct Glucometerson 47-37-3893Hdpskor [Mass/Vol]129 mg/dLNoUNC Health Rex Physician GroupComment on above:Result Comment: Random Glucose Reference Range is dependent on time and content of last meal. Glucose of more than 200 mg/dL in a nonstressed, ambulatory subject supports the diagnosis of Diabetes Mellitus. PERFORMED BY: [facility] [address] [place] [address] PATHOLOGIST C2 TACTICAL ANALYSIS TECHNICIAN DESTINEE SOARES M.D.Performed By: #### GLULS #### Point of Care testing ,Gopal 05-12-2024L Specimen: [id number] Received: 05/12/24 Status: ANA LILIA Reese Num: [id number] Spec Type: Surgical Subm Dr: Michael Partida MD Tissues: A Colon Biopsy (ASCENDING COLON POLYP) B Colon Biopsy (TRANSVERSE COLON POLYP) C Colon Biopsy (DESCENDING COLON POLYP) D Colon Biopsy (RECTAL COLON POLYP) Procedures: HE/Delmer, Gross/Micro L4/4 Age/ Patient Sex Location Account Attending Physician Bob Nunez/Oj [id number] Michael Partida MD SPEC NUM: [id number] RECD: 05/12/24 STATUS: ANA LILIA REESE NUM: [id number] TENZIN: 05/12/[address] [facility] [address]: Michael Partida MD ENTERED: 05/12/24-[address] [facility] DR: SPEC TYPE: Surgical DEPT: S ENTERED BY: [id number] RECV BY: [id number] ORDERED: HE/8, Gross/Micro L4/4 ORDERED: HE/8, Gross/Micro L4/4 Pathological Diagnosis A. Colon, ascending, polypectomy: - Serrated polyp, favor sessile serrated adenoma. B. Colon, transverse, polypectomy: - Tubular adenoma. C. Colon, descending, polypectomy: - Tubular adenoma D. Colon, rectum, polypectomy: - Hyperplastic polyp. Clinical Information Screening, colon polyps. Gross Description Part A is received in formalin labeled with the patients name, date of , and ascending colon are two castro-roque, focally erythematous, friable, 0.2, 0.2 and 0.4 cm in greatest dimension polypoid fragments. The specimen is entirely submitted in a single cassette. (1, ns, [id number] A) WmG Specimen: [id number] Received: 05/12/24 Status: ANA LILIA Reese Num: [id number] Spec Type: Surgical Subm Dr: Michael Partida MD Tissues: A Colon Biopsy (ASCENDING COLON POLYP) B Colon Biopsy (TRANSVERSE COLON POLYP) C Colon Biopsy (DESCENDING COLON POLYP) D Colon Biopsy (RECTAL COLON POLYP) Procedures: HE/8, Gross/Micro L4/4 Patient: Bob Nunez [id number] (Continued) Specimen: [id number] Received: 05/12/24 (Continued) Gross Description (Continued) Signed (signature on file) Galo Guerrero MD 05/13/24 0947 Specimen: [id number] Received: 05/12/24 Status: ANA LILIA Reese Num: [id number] Spec Type: Surgical Subm Dr: Michael Partida MD Tissues: A Colon Biopsy (ASCENDING COLON POLYP) B Colon Biopsy (TRANSVERSE COLON POLYP) C Colon Biopsy (DESCENDING COLON POLYP) D Colon Biopsy (RECTAL COLON POLYP) Procedures: Mary Jane SANFORD/Sandra L4/4 Patient: Bob Nunez [id number] (Continued) Specimen: [id number] Received: 05/12/24 (Continued) Gross Description (Continued) Part B is received in formalin labeled with the patients name, date of , and transverse colon are two castro-roque, focally erythematous, friable, 0.2 and 0.3 cm in greatest dimension polypoid fragments. The specimen is entirely submitted in a single cassette. (1, ns, I68-800 B) JG Part C is received in formalin labeled with the patients name, date of , and descending colon is a castro-roque, focally erythematous, friable, 0.4 cm in greatest dimension polypoid fragment. The specimen is entirely submitted in a single cassette. (1, ns, T04-137 C) JG Part D is received in formalin labeled with the patients name, date of , and rectal polyp is a castro-roque, focally erythematous, friable, 0.3 cm in greatest dimension polypoid fragment. The specimen is entirely submitted in a single cassette. (1, ns, X60- 357 D) Microscopic Description A-D: Microscopic examination is performed. CPT Codes 11028 x4 Specimen: [id number] Received: 05/12/24 Status: ANA LILIA Reese Num: [id number] Spec Type: Surgical Subm Dr: Michael Partida MD Tissues: A Colon Biopsy (ASCENDING COLON POLYP) B Colon Biopsy (TRANSVERSE COLON POLYP) C Colon Biopsy (DESCENDING COLON POLYP) D Colon Biopsy (RECTAL COLON POLYP) Procedures: HE/8, Gross/Micro L4/4 (more content not included)...Normal [facility] Physician GroupAmbulatory Visit Summaryon 99-23-3700Hvnpegfgyh Visit SummaryAmbulatory Visit Summary BOB NUNEZ :1960 Visit Date:03/01/2024 Ambulatory Visit Instructions Your Diagnosis BPH with urinary obstruction Elevated PSA Your Care Team Attending Physician - Yoseph CHA MD Primary Care Physician - XAVI HENSLEY DO This Is Your Medications List dutasteride (dutasteride 0.5 mg Cap) Contact prescribing physician if questions or concerns ascorbic acid (Vitamin C) carvedilol (carvedilol 6.25 mg Tab) cholecalciferol (Prevagen) ezetimibe (ezetimibe 10 mg Tab) ibuprofen (ibuprofen 800 mg Tab) lisinopril (lisinopril 20 mg Tab) magnesium gluconate multivitamin with minerals (Centrum Silver) omega-3 polyunsaturated fatty acids (Fish Oil) tadalafil (Cialis 10 mg Tab) Procedures Performed TURP - Transurethral resection of prostate (03/27/2023), Cystoscopy (04/29/2022), Hernia, Tonsillectomy. Discharge Vitals Temperature (Temporal Artery) 37 ???C Heart Rate (Peripheral) 69 Respiratory Rate 16 Blood Pressure 138/86 Height 168 cm Height 66 in Weight 91.4 kg Weight 201.502 lb BMI 32.38 What to do next You Need to Schedule the Following Appointments Follow Up with AVE MARTINEZ, Yoseph Gomez, URL When: Comments: 1 yr Where: [facility] [address], [place] [address] [phone] Medications What How Much When Instructions Unchanged [...] receiving treatment for. BPH (benign prostatic hyperplasia) BPH with urinary obstruction Elevated PSA Feeling of incomplete bladder emptying Gross hematuria History of prostatitis Hypertension Prostatitis Patient Survey You may receive a survey via text or e-mail asking about your office visit. Please share your experience with us by completing your survey. We appreciate your feedback and thank you for choosing us for your care. Education Materials Benign Prostatic Hyperplasia Benign prostatic hyperplasia (BPH) is an enlarged prostate gland that is caused by the normal agingprocess. The prostate may get bigger as a man gets older. The condition is not caused by cancer. The prostate is a walnut-sized gland that is involved in the production of semen. It is located in front of the rectum and below the bladder. The bladder stores urine. The urethra carries stored urine ou t of the body. An enlarged prostate can press on the urethra. This can make it harder to pass urine. The buildup of urine in the bladder can cause infection. Back pressure and infection may progress to bladder damage and kidney (renal) failure. What are the causes? This condition is part of the normal aging process. However, not all men develop problems from thiscondition. If the prostate enlarges away from the urethra, urine flow will not be blocked. If it enlarges toward the urethra and compresses it, there will be problems passing urine. What increases the risk? This condition is more likely to develop in men older than 50 years. What are the signs or symptoms? Symptoms of this condition include: ??? Getting up often during the night to urinate. ??? Needing to urinate frequently during the day. ??? Difficulty starting urine flow. ??? Decrease in size and strength of your urine stream. ??? Leaking (dribbling) after urinating. ??? Inability to pass urine. This needs immediate treatment. ??? Inability to completely empty your bladder. ??? Pain when you pass urine. This is more common if there is also an infection. ??? Urinary tract infection (UTI). How is this diagnosed? This condition is diagnosed based on your medical history, a (more content not included)...[facility] Center[facility]/Cl[facility] Noteon [id number] Office/Clinic NoteUrology Office/Clinic Note Chief Complaint elevated PSA, BPH HPI Staff 7 month f/u. Previous dx: BPH with urinary obstruction, elevated PSA. Last PSA 03/14/22 - 3.80 & 22.9% and current PSA 02/11/24 - 0.28 S/p TURP 03/27/23. *Dutasteride 0.5mg qd Dysuria: denies Incomplete bladder emptying: denies Hematuria: denies Frequency: denies Urgency: denies Nocturia: denies Stream: good steady Leaking: denies Post void dripping: denies Wearing pads/ Depends: denies Urge incontinence: denies Stress incontinence: denies Incontinence without Sensory Awareness: denies Abdominal pain: denies Flank pain: denies Sexual complaints: denies History of Present Illness Tests reviewed: reviewed UA, PSA I have reviewed the previous health record information and history for this patient from Dr. Cha. I have reviewed and verified the staff HPI to be accurate for this encounter. Review of Systems PHQ Score Initial Depression Screen Score: 1 SCORE ROS - Provider Constitutional: denies weight [...] See HPI. Physical Exam Vitals & Measurements T: 37 ???C(Temporal Artery) HR: 69(Peripheral) RR: 16 BP: 138/86 HT: 66 in HT: 168 cm WT: 91.4 kg WT: 201.502 lb BMI: 32.38 General Appearance: alert, no distress, well nourished, well developed male. Assessment/Plan 1. BPH with urinary obstruction (N40.1: Benign prostatic hyperplasia with lower urinary tract symptoms) Cysto 05/21/22 - Obstructing median lobe, friable prostate. Trilobar obstruction. Moderate trabeculation, small diverticuli. S/p TURP 03/27/23 (15g removed). Path showed benign prostatic tissue with stromal hyperplasia, atrophy, and chronic inflammation. Stopped Tamsulosin 04/21/23. Taking Dutasteride 0.5mg qd. Still very satisfied with results of TURP. Good, steady stream. Discussed risks/benefits of stopping Dutasteride given stability of sxs. Pt prefers to continue medication. UA today negative for blood and infection. -Cont Dutasteride 0.5mg qd. Call for refills or can call to inform office if he chooses to d/c med. -F/u in 1 yr 2. Elevated PSA (R97.20: Elevated prostate specific antigen [PSA]) PSA (ordered by PCP): 05/15/16 - 2.37 01/22/18 - 2.79 09/08/19 - 3.71 02/26/22 - 5.32 03/14/22 - 3.80 & 22.9% Started Dutasteride 04/29/22. 02/11/24 - 0.28 (0.56 Dutasteride, PO TURP) PSA decreased significantly from prior. Advised pt is likely due to TURP. Will continue to monitor. -PSA in 1 yr Follow-up With When Contact Information AVE MARTINEZ, Yoseph Gomez, URL [facility] [address] , [place] [address]- [phone] Additional Instructions: 1 yr w/ PSA Patient Education Benign Prostatic Hyperplasia I, Darleen Marrero, personally scribed for Dr. Cha on 03/01/2024 11:14:06. . Documentation recorded by the scribe, Darleen Marrero, accurately reflects the services(s) I performed and decisions made by me. Authenticated by Dr. Cha on 03/01/2024 11:16:38. Problem List/Past Medical History Ongoing BPH (benign prostatic hyperplasia) BPH with urinary obstruction Elevated PSA Feeling of incomplete bladder emptying Gross hematuria History of prostatitis Hypertension Prostatitis Historical No qualifying data Procedure/Surgical History TURP - Transurethral resection of prostate (03/27/2023), Cystoscopy (04/29/2022), Hernia, Tonsillectomy. Medications carvedilol 6.25 mg Tab Centrum Silver, Oral, Daily Cialis 10 mg Tab, 10 mg= 1 tab(s), Oral, MonThu, PRN dutasteride 0.5 mg Cap, 0.5 mg= 1 cap(s), Oral, Daily, 3 refills ezetimibe 10 mg Tab Fish Oil, Oral ibuprofen 800 mg Tab lisinopril 20 mg Tab magnesium gluconate, Oral, BID Prevagen, Oral, Daily Vitamin C, Daily Allergies No Known Medication Allergies Social History Alcohol Never., 03/01/2024 Substance Abuse Never., 03/01/2024 Tobacco - Denies Tobacco Use, 09/09/2022 Never (less than 100 in lifetime) Tobacco Use:. Household tobacco concerns: No. Yes, 03/01/2024 Family History Family history is negative Immunizations Vaccine Date Status SARS-CoV-2 (COVID-19) mRNA BNT-162b2 vax 02/23/2021 Recorded SARS-CoV-2 (COVID-19) mRNA BNT-162b2 vax 07/14/2020 Recorded SARS-CoV-2 (COVID-19) mRNA BNT-162b2 vax 06/23/2020 Recorded SARS-CoV-2 (COVID-19) mRNA BNT-162b2 vax 06/02/2020 Recorded Lab Results Ambulatory Point of Care Results Bilirubin Urine Dipstick: Negative (03/01/24 10:35:00) Blood Urine Dipstick: Negative (03/01/24 10:35:00) Gluco (more content not included)...[facility] CenterComment on above:Result Comment: Electronically Signed By: Yoseph CHA MD\.br\Date and Time Signed: 03/01/24 11:16 EST\.br\Electronically Co-Signed By: Darleen Marrero\.br\Date and Time Co-Signed: 03/01/24 11:14 ESTAmbulatory Visit Summaryon [id number] Visit Summary BOB NUNEZ :1960 Visit Date:07/21/2023 Ambulatory Visit Instructions Your Diagnosis BPH with urinary obstruction Elevated PSA Incomplete bladder emptying Your Care Team Attending Physician - Yoseph CHA MD Primary Care Physician - XAVI HENSLEY DO This Is Your Medications List Contact prescribing physician if questions or concerns ascorbic acid (Vitamin C) carvedilol (carvedilol 6.25 mg Tab) cholecalciferol (Prevagen) dutasteride (dutasteride 0.5 mg Cap) ezetimibe (ezetimibe 10 mg Tab) ibuprofen (ibuprofen 800 mg Tab) lisinopril (lisinopril 20 mg Tab) magnesium gluconate multivitamin with minerals (Centrum Silver) omega-3 polyunsaturated fatty acids (Fish Oil) tadalafil (Cialis 10 mg Tab) Procedures Performed TURP - Transurethral resection of prostate (03/27/2023), Cystoscopy (04/29/2022), Hernia, Tonsillectomy. Discharge Vitals Temperature (Temporal Artery) 37 ?C Heart Rate (Peripheral) 78 Respiratory Rate 16 Blood Pressure 139/85 Height 168 cm Height 66 in Weight 85.1 kg Weight 187.22 lb BMI 30.15 What to do next Scheduled Follow-Up Appointments Friday 8:30 AM EDT With: Yoseph CHA MD [facility] Educationon [id number] EducationUrology Benign Prostatic Hyperplasia Benign prostatic hyperplasia (BPH) is an enlarged prostate gland that is caused by the normal agingprocess. The prostate may get bigger as a man gets older. The condition is not caused by cancer. The prostate is a walnut-sized gland that is involved in the production of semen. It is located in front of the rectum and below the bladder. The bladder stores urine. The urethra carries stored urine ou t of the body. An enlarged prostate can press on the urethra. This can make it harder to pass urine. The buildup of urine in the bladder can cause infection. Back pressure and infection may progress to bladder damage and kidney (renal) failure. What are the causes? This condition is part of the normal aging process. However, not all men develop problems from thiscondition. If the prostate enlarges away from the urethra, urine flow will not be blocked. If it enlarges toward the urethra and compresses it, there will be problems passing urine. What increases the risk? This condition is more likely to develop in men older than 50 years. What are the signs or symptoms? Symptoms of this condition include: ? Getting up often during the night to urinate. ? Needing to urinate frequently during the day. ? Difficulty starting urine flow. ? Decrease in size and strength of your urine stream. ? Leaking (dribbling) after urinating. ? Inability to pass urine. This needs immediate treatment. ? Inability to completely empty your bladder. ? Pain when you pass urine. This is more common if there is also an infection. ? Urinary tract infection (UTI). How is this diagnosed? This condition is diagnosed based on your medical history, a physical exam, and your symptoms. Tests will also be done, such as: ? A post-void bladder scan. This measures any amount of urine that may remain in your bladder afteryou finish urinating. ? A digital rectal exam. In a rectal exam, your health care provider checks your prostate by putting a lubricated, gloved finger into your rectum to feel the back of your prostate gland. This exam detects the size of your gland and any abnormal lumps or growths. ? An exam of your urine (urinalysis). ? A prostate specific antigen (PSA) screening. This is a blood test used to screen for prostate cancer. ? An ultrasound. This test uses sound waves [...] severity of your condition. Treatment may include: ? Observation and yearly exams. This may be the only treatment needed if your condition and symptoms are mild. ? Medicines to relieve your symptoms, including: ? Medicines to shrink the prostate. ? Medicines to relax the muscle of the prostate. ? Surgery in severe cases. Surgery may include: ? Prostatectomy. In this procedure, the prostate tissue is removed completely through an open incision or with a laparoscope or robotics. ? Transurethral resection of the prostate (TURP). In this procedure, a tool is inserted through theopening at the tip of the penis (urethra). It is used to cut away tissue of the inner core of the prostate. The pieces are removed through the same opening of the penis. This removes the blockage. ? Transurethral incision (TUIP). In this procedure, small cuts are made in the prostate. This lessens the prostate's pressure on the urethra. ? Transurethral microwave thermotherapy (TUMT). This procedure uses microwaves to create heat. The heat destroys and removes a small amount of prostate tissue. ? Transurethral needle ablation (TUNA). This procedure uses radio frequencies to destroy and removea small amount of prostate tissue. ? Interstitial laser coagulation (ILC). This procedure uses a laser to destroy and remove a small amount of prostate tissue. ? Transurethral electrovaporization (TUVP). This procedure uses electrodes to destroy and remove a small amount of prostate tissue. ? Prostatic urethral lift. This procedure inserts an implant to push the lobes of the prostate awayfrom the urethra. Follow these instructions at home: ? Take pukz-eln-ciaoghj and prescription medicines only as told by your health care provider. ? Monitor your symptoms for any changes. Contact your health care provider with any changes. ? Avoid drinking large amounts of liquid before going to bed or out in public. ? Avoid or reduce how much caffeine or alcohol you drink. ? Give yourself time when you urinate. ? Keep all follow-up visits. This is important. Contact a health care provider if: ? You have unexplained back pain. ? Your symptoms do not get better with treatment. ? You develop side effects from the medicine (more content not included)... [facility]Former[facility]/Clinic Noteon [id number] Office/Clinic NoteChief Complaint BPH with urinary obstruction HPI Staff 3m UA pt is unable to leave a sample at this time DX: BPH, Elevated PSA, Feeling of Incomplete Bladder Emptying & Hx of Prostatitis. S/p TURP 03/27/23 *Tamsulosin DC'd at time of last encounter. Continues Dutasteride 0.5mg qd therapy. Dysuria: sometimes he has some burning with the start of urination but subsides quickly Incomplete bladder emptying: pt states he is emptying much better since his procedure Hematuria: no Frequency: no Urgency: improved greatly Nocturia: pt is no getting up Stream: good steady stream no straining Leaking: no Post void dripping: no Wearing pads/ Depends: no Urge incontinence: no Stress incontinence: no Incontinence without Sensory Awareness: no Abdominal pain: no Flank pain: no Sexual complaints: no History of Present Illness Tests reviewed: none I have reviewed the previous health record [...] See HPI. Physical Exam Vitals & Measurements T: 37 ?C(Temporal Artery) HR: 78(Peripheral) RR: 16 BP: 139/85 HT: 66 in HT: 168 cm WT: 85.1 kg WT: 187.22 lb BMI: 30.15 General Appearance: alert, no distress, well nourished, well developed male. Genitourinary: normal scrotum, normal testes, normal urethra, normal epididymis, normal vas deferens/spermatic cord. Flank Pain: none. Bladder: nonpalpable. Assessment/Plan 1. BPH with urinary obstruction (N40.1: Benign prostatic hyperplasia with lower urinary tract symptoms) Cysto 05/21/22 - Obstructing median lobe, friable prostate. Trilobar obstruction. Moderate trabeculation, small diverticuli. S/p TURP 03/27/23. Path showed benign prostatic tissue with stromal hyperplasia, atrophy, and chronic inflammation. Stopped Tamsulosin at prior OV. Still taking Dutasteride 0.5mg qd. Continues to feel he empties well. Strong stream. No longer getting up at night. States he noticed 6wks PO TURP he was voiding normally. Overall very satisfied with urinary sx control. Admits he hashad some burning at start of stream. Discussed this is related to healing of capacious median lobe of prostate and will improve with time. No sample provided for UA today. -Cont Dutasteride as above -Pt to provide urine sample prior to leaving office 2. Elevated PSA (R97.20: Elevated prostate specific antigen [PSA]) PSA (ordered by PCP): 05/15/16 - 2.37 01/22/18 - 2.79 09/08/19 - 3.71 02/26/22 - 5.32 03/14/22 - 3.80 & 22.9% Started Dutasteride 04/29/22. Follow-up With When Contact Information AVE MARTINEZ, Yoseph Gomez, URL [facility] [address], [place] [address] [phone] Additional Instructions: 6 mos (no labs) Patient Education Benign Prostatic Hyperplasia I, Darleen Marrero, personally scribed for Dr. Cha on 07/21/2023 09:40:46. . Documentation recorded by the scribe, Darleen Marrero, accurately reflects the services(s) I performed and decisions made by me. Authenticated by Dr. Cha on 07/21/2023 09:42:14. Problem List/Past Medical History Ongoing BPH (benign prostatic hyperplasia) BPH with urinary obstruction Elevated PSA Feeling of incomplete bladder emptying Gross hematuria History of prostatitis Hypertension Prostatitis Historical No qualifying data Procedure/Surgical History TURP - Transurethral resection of prostate (03/27/2023), Cystoscopy (04/29/2022), Hernia, Tonsillectomy. Medications carvedilol 6.25 mg Tab Centrum Silver, Oral, Daily Cialis 10 mg Tab, 10 mg= 1 tab(s), Oral, MonThu, PRN dutasteride 0.5 mg Cap, 0.5 mg= 1 cap(s), Oral, Daily, 3 refills ezetimibe 10 mg Tab Fish Oil, Oral ibuprofen 800 mg Tab lisinopril 20 mg Tab magnesium gluconate, Oral, BID Prevagen, Oral, Daily Vitamin C, Daily Allergies No Known Medication Allergies Social History Tobacco - Denies Tobacco Use, 09/09/2022 Never (less than 100 in lifetime) Tobacco Use:. Never Smokeless Tobacco Use:. Household tobacco concerns: No. Yes, 07/21/2023 Family History Family history is negative Immunizations Vaccine Date Status SARS-CoV-2 (COVID-19) mRNA BNT-162b2 vax 02/23/2021 Recorded SARS-CoV-2 (COVID-19) mRNA BNT-162b2 vax 07/14/2020 Recorded SARS-CoV-2 (COVID-19) mRNA BNT-162b2 vax 06/23/2020 Recorded (more content not included)...[facility] CenterComment on above:Result Comment: Electronically Signed By: Yoseph CHA MD\.br\Date and Time Signed: 07/21/23 09:42 EDT\.br\Electronically Co-Signed By: Darleen Marrero\.br\Date and Time Co-Signed: 07/21/23 09:41 EDTAmbulatory Visit Summaryon 04-21-2023 Ambulatory Visit Summary BOB NUNEZ :1960 Visit Date:04/21/2023 Ambulatory Visit Instructions Your Diagnosis BPH with urinary obstruction Elevated PSA Feeling of incomplete bladder emptying History of prostatitis Your Care Team Attending Physician - Yoseph CHA MD Primary Care Physician - XAVI HENSLEY DO This Is Your Medications List Contact prescribing physician if questions or concerns ascorbic acid (Vitamin C) carvedilol (carvedilol 6.25 mg Tab) cholecalciferol (Prevagen) dutasteride (dutasteride 0.5 mg Cap) ezetimibe (ezetimibe 10 mg Tab) ibuprofen (ibuprofen 800 mg Tab) lisinopril (lisinopril 20 mg Tab) magnesium gluconate multivitamin with minerals (Centrum Silver) omega-3 polyunsaturated fatty acids (Fish Oil) tadalafil (Cialis 10 mg Tab) [Image Removed: STOP]Stop taking these medications tamsulosin (tamsulosin 0.4 mg Cap) Procedures Performed TURP - Transurethral resection of prostate (03/27/2023), Cystoscopy (04/29/2022), Hernia, Tonsillectomy. Discharge Vitals Heart Rate (Peripheral) 80 Respiratory Rate 16 Blood Pressure 128/78 Height 168 cm Height 66 in Weight 85 kg Weight 187 lb BMI 30.12 What to do next Scheduled Follow-Up Appointments Friday 8:45 AM EDT With: AVE MARTINEZ, Yoseph Gomez Where: [facility]Patient Educationon [phone] EducationUrology Transurethral Resection of the Prostate, Care After The following information offers guidance on how to care for yourself after your procedure. Your health care provider may also give you more specific instructions. If you have problems or questions, contact your health care provider. What can I expect after the procedure? After the procedure, it is common to have: ? Mild pain in your lower abdomen. ? Soreness or mild discomfort in your penis or when you urinate. This is from having the catheter inserted during the procedure. ? A sudden urge to urinate (urgency). ? A need to urinate often. ? A small amount of blood in your urine. You may notice some small blood clots in your urine. Theseare normal. Follow these instructions at home: Medicines ? Take mpft-mmq-zeeikpp and prescription medicines only as told by your health care provider. ? If you were prescribed an antibiotic medicine, take it as told by your health care provider. Do not stop taking the antibiotic even if you start to feel better. Activity ? Rest as told by your health care provider. ? Avoid sitting for a long time without moving. Get up to take short walks every 1?2 hours. This isimportant to improve blood flow and breathing. Ask for help if you feel weak or unsteady. You may increase your physical activity gradually as you start to feel better. ? Do not drive or operate machinery until your health care provider says that it is safe. ? Do not ride in a car for long periods of time, or as told by your health care provider. ? Avoid intense physical activity for as long as told by your health care provider. ? Do not lift anything that is heavier than 10 lb (4.5 kg), or the limit that you are told, until your health care provider says that it is safe. ? Do not have sex until your health care provider approves. ? Return to your normal activities as told by your health care provider. Ask your health care provider what activities are safe for you. Preventing constipation You may need to take these actions to prevent or treat constipation: ? Drink enough fluid to keep your urine pale yellow. ? Take spny-xbw-zphgsea or prescription medicines. ? Eat foods that are high in fiber, such as beans, whole grains, and fresh fruits and vegetables. ? Limit foods that are high in fat and processed sugars, such as fried or sweet foods. General instructions ? Do not strain when you have a bowel movement. Straining may lead to bleeding from the prostate. This may cause blood clots and trouble urinating. ? Do not use any products that contain nicotine or tobacco. These products include cigarettes, chewing tobacco, and vaping devices, such as e-cigarettes. If you need help quitting, ask your health care provider. ? If you go home with a tube draining your urine (urinary catheter), care for the catheter as told by your health care provider. ? Wear compression stockings as told by your health care provider. These stockings help to prevent blood clots and reduce swelling in your legs. ? Keep all follow-up visits. This is important. Contact a health care provider if: ? You have signs of infection, such as: ? Fever or chills. ? Urine that smells very bad. ? Swelling around your urethra that is getting worse. ? Swelling in your penis or testicles. ? You have difficulty urinating. ? You have pain that gets worse or does not improve with medicine. ? You have blood in your urine that does not go away after 1 week of resting and drinking more fluids. ? You have trouble having a bowel movement. ? You have trouble having or keeping an erection. ? No semen comes out during orgasm (dry ejaculation). ? You have a urinary catheter in place, and you have: ? Spasms or pain. ? Problems with your catheter or your catheter is blocked. Get help right away if: ? You are unable to urinate. ? You are having more blood clots in your urine instead of fewer. ? You have: ? Large blood clots. ? A lot of blood in your urine. ? Pain in your back or lower abdomen. ? You have difficulty breathing or shortness of breath. ? You develop swelling or pain in your leg. These symptoms may be an emergency. Get help right away. Call 911. ? Do not wait to see if the symptoms will go away. ? Do not drive yourself to the hospital. Summary ? After the procedure, it is common to have a small amount of blood in your urine. ? Follow restrictions about lifting and sexual activity as told by your health care provider. Ask what activities are safe for you. ? Keep all follow-up visits. This is important. This information is not intended to replace advice given to you by your health care provider. Make sure you discuss any questions you have with your health care provider. Document Revised: 12/04/2021 Document Reviewed: 12/04/2021 [employer] Patient Education ? 2022 [employer] Urology Office/Clinic Noteon [id number] Office/Clinic NoteChief Complaint S/P TURP HPI Staff F/u to TURP to review pathology. Previous dx of BPH, elevated PSA, feeling of incomplete bladder emptying and prostatitis. *Dutasteride 0.5mg, Tamsulosin 0.4mg & Cialis i therapy. Has been taking Tamsulosin qd since procedure. (was BID prior) Did have some post op blood in urine for the first couple weeks post op. Denies visible blood in the past week. Denies complaints with urinary stream. Would like to know if he should still be taking meds. & concerned with physical activity limts. No new PSA. (ordered by PCP) History of Present Illness Tests reviewed: reviewed path report I have reviewed the previous health record [...] HPI. Physical Exam Vitals & Measurements HR: 80(Peripheral) RR: 16 BP: 128/78 HT: 66 in HT: 168 cm WT: 85 kg WT: 187 lb BMI: 30.12 General Appearance: alert, no distress, well nourished, well developed male. Genitourinary: normal scrotum, normal testes, normal urethra, normal epididymis, normal vas deferens/spermatic cord. Flank Pain: none. Bladder: nonpalpable. Assessment/Plan 1. BPH with urinary obstruction (N40.1: Benign prostatic hyperplasia with lower urinary tract symptoms) Cysto 05/21/22 - Obstructing median lobe, friable prostate. Trilobar obstruction. Moderate trabeculation, small diverticuli. S/p TURP 03/27/23. Path showed benign prostatic tissue with stromal hyperplasia, atrophy, and chronic inflammation. Catheter removed 03/31/23 in our office. The pathology report was reviewed with the patient in detail today. There is no evidence of malignancy and no further evaluation of the tissue removed is planned. All questions were answered and the report discussed in terms that the patient could understand. Denies any PO complications. Had gross hematuria but has not seen a blood in the past week. Advisedpt he can resume lifting and sexual activity but should limit bike riding for a few more weeks. Taking Dutasteride 0.5mg qd and Tamsulosin 0.4mg qd. Was taking Tamsulosin bid prior to TURP. States his stream is strong. Feels he empties completely. Does have mild urgency but is not bothersome. Advised pt we can stop Tamsulosin since he is doing well at lower dosage. -D/c Tamsulosin -Cont Dutasteride....will probably stay on this med due to large prostate. -F/u in 3 mos w/ UA 2. Elevated PSA (R97.20: Elevated prostate specific antigen [PSA]) PSA (ordered by PCP): 05/15/16 - 2.37 01/22/18 - 2.79 09/08/19 - 3.71 02/26/22 - 5.32 03/14/22 - 3.80 & 22.9% Started Dutasteride 04/29/22. 3. Feeling of incomplete bladder emptying (R39.14: Feeling of incomplete bladder emptying) Pt called 02/27/23 stating that he was only voiding in small amounts. Bladder scan 03/03/23 was 209mL, had catheter placed in our office. Then was removed 03/19/23. Has not had any trouble with retention since TURP. 4. History of prostatitis (Z87.438: Personal history of other diseases of male genital organs) Was given doxycycline x2wks but had no sx improvement. Then was given Cipro x3wks at prior OV. Discussed TURP will also help limit risk of infection due to improving bladder emptying. Follow-up With When Contact Information Yoseph CHA MD, URL [facility] [address], [place] [address]- [phone] Additional Instructions: 3 mos w/ UA Patient Education Transurethral Resection of the Prostate, Care After I, Darleen Marrero, personally scribed for Dr. Cha on 04/21/2023 11:26:10. . Documentation recorded by the scribe, Darleen Marrero, accurately reflects the services(s) I performed and decisions made by me. Authenticated by Dr. Cha on 04/21/2023 11:27:36. Problem List/Past Medical History Ongoing BPH (benign prostatic hyperplasia) BPH with urinary obstruction Elevated PSA Feeling of incomplete bladder emptying Gross hematuria History of prostatitis Hypertension Prostatitis Historical No qualifying data Procedure/Surgical History TURP - Transurethral resection of prostate (03/27/2023), Cystoscopy (04/29/2022), Hernia, Tonsillectomy. Medications carvedilol 6.25 mg Tab Centrum Silver, Oral, Daily Cialis 10 mg Tab, 10 mg= 1 tab(s), Oral, MonThu, PRN dutasteride 0.5 mg Cap, 0.5 mg= (more content not included)...[facility] CenterComment on above:Result Comment: Electronically Signed By: Yoseph CHA MD\.br\Date and Time Signed: 04/21/23 11:27 EST\.br\Electronically Co-Signed By: Darleen Marrero\.br\Date and Time Co-Signed: 04/21/23 11:26 EST Pathology Noteon 21-18-1094Wepafoxcb Note [id number]#1.00[facility] HospitalOperative Reporton 60-21-9193Fynufqbdw Report [id number]#1.00[facility] HospitalAmbulatory Visit Summaryon 92-45-1839Tzzqjyzvca Visit Summary BOB NUNEZ :1960 Visit Date:03/19/2023 Ambulatory Visit Instructions [...] AM EST With: Where: [facility] of [address] \.br\ Medications\.br\ What How Much When Instructions\.br\ [...] or e-mail asking about your office visit. Pleaseshare your experience with us by completing your survey. We appreciate your feedback and thank you for choosing us for your care.\.br\ \.br\[facility] -[facility] 18-58-1754LLN [id number]#1.00TIFAvita Health System Galion HospitalLab Reportson 24-98-2579Efe Reports [id number]#1.00[facility] [id number]#1.00TIFAvita Health System Galion HospitalOffice Visit (Cardiology)on 09-25-2191Gytibb-up visit Diagnoses/Problems Assessed Essential hypertension (401.9) (I10) Hyperlipidemia (272.4) (E78.5) Class 1 obesity with body mass index (BMI) of 31.0 to 31.9 in adult (278.00,V85.31) (E66.9,Z68.31) Never smoker BPH with elevated PSA (600.00,790.93) (N40.0,R97.20) Orders Class 1 obesity with body mass index (BMI) of 31.0 to 31.9 in adult Healthy Weight Tips; Status:Complete - Retrospective Authorization; Done: [id number] Some eating tips that can help you lose weight.; Status:Complete - Retrospective Authorization; Done: 12Ilj0315 Essential hypertension Renew: Carvedilol 6.25 MG Oral Tablet; Take 1 tablet twice a day Renew: Lisinopril 20 MG Oral Tablet; TAKE 1 TABLET BY MOUTH DAILY SocHx: Never smoker Tobacco Use Screening; Status:Complete; Done: [id number] Patient Instructions Please bring all medicines, vitamins, [...] Lab as scheduled Same meds Chief Complaint BOB NUNEZ is being seen for an annual [...] from class I obesity physical examination wasnormal. Assessment/recommendations: 1- essential hypertension presently under control medical [...] negative for complaint. Vitals Vital Signs Recorded: 69Qof0991 08:56AM Heart Rate76, R Radial Fzikyjrw913, RUE, Sitting Exaddqfuj94, RUE, Sitting Height5 ft 6 in Dvremo314 lb BMI Szvnezoslj53.47 kg/m2 BSA Calculated1.98 Tobacco Useb) No PHQ-2 #1. Over the last 2 weeks have you felt down, depressed or hopeless? (If yes, answer PHQ-9 below)No PHQ-2 #2. Over the last 2 weeks have you felt little interest or pleasure in doing things? (If yes,answer PHQ-9 below)No Physical Exam Constitutional: alert and [...] murmurs , pedal p (more content not included)...NormalUH TouchworksTobacco Screening.on 51-35-9512Nkyvj depression screening wzgujqzsfuLvED-Ckwecryqaq-Fgjhrmar 250 DO Work Phone: Tobacco use status CPHSb) AlIJ-Dkjfmxqpmb-Lljdqwzg 250 DO Work Phone: CT ABD/PELV WO W CONon 48-85-3454DH ABD/PELV WO W CON EXAMINATION: CT ABD/PELV [...] Electronically authenticated by: JESSICA NAVA Date: 2022-03-20 07:45NoTriHealth Good Samaritan HospitalPSA, FREE AND TOTAL RATIOon 03-15-2022% Free PSA22.9 %NormalThe [facility] on above:Result Comment: The table below lists the probability [...] free PSA for any other population of men.Performed By: #### PSAFREE #### [facility] [address] [place] [address] Dr. Stanton Gaming specific Ag [Mass/Vol]3.8 ng/mLNormal0.0-4.0The [facility] on above:Result Comment: [employer] ECLIA methodology. . According to the [employer], Serum PSA should decrease and [...] of the presence or absence of malignant disease.Performed By: #### PSAFREE #### [facility] [address] [place] [address] Dr. Stanton Lay, Free0.87 ng/mLNormalN/AThe [facility] on above:Result Comment: [employer] ECLIA methodology.Performed By: #### PSAFREE #### [facility] [address] [place] [address] Dr. Stanton Bautista AUTO DIFFon 37-07-8614UWIW #0.1 103/ulNormal0.0-0.1The [facility] Medical Centerment on above:Performed By: #### DATCBC #### [facility] [address] [place] [address] Dr. Stanton LangeBasophils/100 WBC (Bld)0.7 %Normal0.2-2.0The [facility] Comment on above:Performed By: #### DATCBC #### [facility] [address] [place] [address] Dr. Stanton Patino #0.2 103/ulNormal0.0-0.7The [facility] CenterComment on above: Performed By: #### DATCBC #### [facility] [address] [place] [address] Dr. Stanton Galanosinophils/100 WBC (Bld)3.1 %Normal0.9-7.0The [facility] Comment on above:Performed By: #### DATCBC #### [facility] [address] [place] [address] Dr. Stanton Galanrythrocyte distribution width (RBC) [Ratio]12.2 %Cbfznp04.0-15.0 The [facility] CenterComment on above:Performed By: #### DATCBC #### [facility] [address] [place] [address] Dr. Stanton LangeHematocrit (Bld) [Volume fraction]43.9 %Totaes99.0-54.0The [facility] CenterComment on above:Performed By: #### DATCBC #### [facility] [address] [place] [address] Dr. Stanton LangeHemoglobin (Bld) [Mass/Vol]15.2 g/nREoklec65.0-18.0The [facility] CenterComment on above:Performed By: #### DATCBC #### [facility] [address] [place] [address] Dr. Stanton Rosario #0.03 10e3/ulNormal0.00-0.03The [facility] CenterComment on above:Performed By: #### DATCBC #### [facility] [address] [place] [address] Dr. Stanton Rosario %0.4 %Normal0.0-0.5The [facility] CenterComment on above: Performed By: #### DATCBC #### [facility] [address] [place] [address] Dr. Stanton Puentes #2.9 103/ulNormal1.2-3.8The [facility] CenterComment on above:Performed By: #### DATCBC #### [facility] [address] [place] [address] Dr. Stanton Honghocytes/100 WBC (Bld)38.8 %Vqeghy02.5-60.0The [facility] CenterComment on above:Performed By: #### DATCBC #### [facility] [address] [place] [address] Dr. Stanton Loyola (RBC) [Entitic mass]31.9 xeSyerzn99.9-34.0The [facility] CenterComment on above:Performed By: #### DATCBC #### [facility] [address] [place] [address] Dr. Stanton Curtis (RBC) [Mass/Vol]34.6 g/qKNargnw96.9-35.2The [facility] CenterComment on above:Performed By: #### DATCBC #### [facility] [address] [place] [address] Dr. Stanton Curtis (RBC) [Entitic vol]92.2 vOTvdzdj73.0-94.0The [facility] CenterComment on above:Performed By: #### DATCBC #### [facility] [address] [place] [address] Dr. Stanton Malin #0.5 103/ulNormal0.3-0.8The [facility] CenterComment on above:Performed By: #### DATCBC #### [facility] [address] [place] [address] Dr. Stanton Clintonocytes/100 WBC (Bld)6.3 %Normal1.7-12.0The [facility] Comment on above:Performed By: #### DATCBC #### [facility] [address] [place] [address] Dr. Stanton PhillipsUT #3.8 103/ulNormal1.4-6.5The [facility] CenterComment on above:Performed By: #### DATCBC #### [facility] [address] [place] [address] Dr. Stanton Phillipsutrophils/100 WBC (Bld)50.7 %Dfmbjn46.0-75.0The [facility] CenterComment on above:Performed By: #### DATCBC #### [facility] [address] [place] [address] Dr. Stanton LangePlatelet mean volume (Bld) [Entitic vol]9.7 fLNormal9.5-13.5The [facility] CenterComment on above:Performed By: #### DATCBC #### [facility] [address] [place] [address] Dr. Stanton LangePLT142 103/ulCritically wjc704-160Gwe [facility] CenterComment on above:Performed By: #### DATCBC #### [facility] [address] [place] [address] Dr. Stanton LangeRBC4.76 106/ulNormal4.70-6.10The [facility] Medical CenterComcorewell health pennock hospital on above:Performed By: #### DATCBC #### [facility] [address] [place] [address] Dr. Stanton LangeWBC7.5 103/ulNormal4.0-11.0The [facility] CenterComment on above: Performed By: #### DATCBC #### [facility] [address] [place] [address] Dr. Stanton Maurice- BMP WITH LIPIDon 99-14-0401Kphaj gap [Moles/Vol]9.6 mmol/L NormalThe [facility] Medical CenterComcorewell health pennock hospital on above:Performed By: #### DATPSA, DATBMP #### [facility] [address] [place] [address] Dr. Stanton LangeCalcium [Mass/Vol]8.8 mg/dLNormal8.5-10.1[facility] Comment on above:Performed By: #### DATPSA, DATBMP #### [facility] [address] [place] [address] Dr. Stanton LangeChloride [Moles/Vol]105 mmol/OVofqbn63-405HbvWood County Hospital Comment on above:Performed By: #### DATPSA, DATBMP #### [facility] [address] [address] [address] Stanton LangeCholesterol [Mass/Vol]205 mg/dLCritically high<=200The [facility] CenterComment on above:Performed By: #### DATPSA, DATBMP #### [facility] [address] [place] [address] Dr. Stanton LangeCholesterol in HDL [Mass/Vol]38 mg/dLCritically bqd06-43Nwn [facility] CenterComment on above:Performed By: #### DATPSA, DATBMP #### [facility] [address] [place] [address] Dr. Stanton Merceresterol in LDL [Mass/Vol]90.8 mg/dLNormalThe [facility] CenterComment on above:Performed By: #### DATPSA, DATBMP #### [facility] [address] [place] [address] Dr. Stanton LangeCO2 [Moles/Vol]29.9 mmol/CQbcqce81.0-32.0[facility] Comment on above:Performed By: #### DATPSA, DATBMP #### [facility] [address] [place] [address] Dr. Stanton LangeCreatinine [Mass/Vol]1.27 mg/dLNormal0.70-1.30The [facility] CenterComment on above:Performed By: #### DATPSA, DATBMP #### [facility] [address] [place] [address] Dr. Eid ChangEGFR-AF WELSH>60Normal>=60The [facility] CenterComment on above:Performed By: #### DATPSA, DATBMP #### [facility] [address] [address] [address] Stanton GalanGFR-NON AF FRXKXBHR30 mL/min/1.84e1Nswjlndlsj low>=60The [facility] on above:Performed By: #### DATPSA, DATBMP #### [facility] [address] [address] [address] Stanton LangeGlucose [Mass/Vol]160 mg/dLCritically wgfa52-747Btk [facility] CenterComment on above:Performed By: #### DATPSA, DATBMP #### [facility] [address] [address] [address] Stanton Perkins NORMAL> or = 60 mg/dl - LOW CARDIOVASCULAR RISK <40 mg/dl - HIGH CARDIOVASCULAR RISKKettering Health Washington TownshipComment on above:Performed By: #### DATPSA, DATBMP #### [facility] [address] [place] [address] Dr. Stanton LangeLDL CALC NORMALSEE BELOWKettering Health Washington TownshipComment on above:Result Comment: <100 mg/dl OPTIMAL 100 - 129 mg/dl NEAR OR ABOVE OPTIMAL 130 - 159 mg/dl BORDERLINE HIGH 160 - 189 mg/dl HIGH >190 mg/dl VERY HIGH Performed By: #### DATPSA, DATBMP #### [facility] [address] [address] [address] Stanton LangePotassium [Moles/Vol]4.5 mmol/LNormal3.5-5.1[facility] Comment on above:Performed By: #### DATPSA, DATBMP #### [facility] [address] [place] [address] Dr. Stanton LangeSodium [Moles/Vol]140 mmol/GIedgea982-040Pua [facility] Comment on above:Performed By: #### DATPSA, DATBMP #### [facility] [address] [address] [address] Stanton LangeTriglyceride [Mass/Vol]381 mg/dLCritically high<=150The [facility] CenterComment on above:Performed By: #### DATPSA, DATBMP #### [facility] [address] [address] [address] Stanton Vega nitrogen [Mass/Vol]19.0 mg/dLCritically high7.0-18.0The [facility] CenterComment on above:Performed By: #### DATPSA, DATBMP #### [facility] [address] [address] [address] Stanton Vega nitrogen/Creatinine [Mass ratio]15.0 mg/mgNoTriHealth Good Samaritan HospitalComment on above:Performed By: #### DATPSA, DATBMP #### [facility] [address] [place] [address] Dr. Stanton LangeVLDL CALC76.2 mg/dLKettering Health Washington TownshipComment on above: Performed By: #### DATPSA, DATBMP #### [facility] [address] [place] [address] Dr. Stanton Sanders Visit (Cardiology)on 36-07-7852Okwzki-up visit Diagnoses/Problems Assessed Essential hypertension (401.9) (I10) Hyperlipidemia (272.4) (E78.5) Never smoker Class 1 obesity with body mass index (BMI) of 32.0 to 32.9 in adult (278.00,V85.32) (E66.9,Z68.32) Orders Class 1 obesity with body mass index (BMI) of 32.0 to 32.9 in adult Healthy Weight Tips; Status:Complete - Retrospective Authorization; Done: [id number] Some eating tips that can help you lose weight.; Status:Complete - Retrospective Authorization; Done: 94Ogc9045 SocHx: Never smoker Tobacco Use Screening; Status:Complete; Done: 05Mew3690 Patient Instructions Please bring all medicines, vitamins, and herbal supplements with you when you come to the office. Prescriptions will not be filled unless you are compliant with your follow up appointments or have a follow up appointment scheduled as per instruction of your physician. Refills should be requested at the time of your visit. Follow up in 1 year. IElizabeth LPN, am scribing for and in the presence of, Dr. Lanie Cruz MD The provider reviewed the following test(s) and result(s) with the patient: laboratory tests Chief Complaint BOB NUNEZ is being seen for an annual [...] reviewed. He sees his PCP twice yearly. Assessment/recommendations: 1- essential hypertension presently under control medical therapy with no changes needed. His labs from recent testing were reviewed and no concerns noted 2? dyslipidemia , currently on ezetimibe 10 mg daily which has been tolerated. Recent lipid profilewas acceptable 3?obesity.encouraged patient to continue to work [...] complaint. Vitals Vital Signs Recorded: 17Oct2021 09:20AMRecorded: 92Vvw0741 09:06AM Jllpxgfu383, LUE, Uakknlk945, LUE, Sitting Lnupjvebu95, LUE, Jclnqcl99, LUE, Sitting Heart Rate70, L Radial Height5 ft 6 in Chqjiz412 lb BMI Ioivfmrocj94.12 kg/m2 BSA Calculated2 Tobacco Useb) No PHQ-2 #1. Over the last 2 weeks have you felt down, depressed or hopeless? (If yes, answer PHQ-9 below)No PHQ-2 #2. Over the last 2 weeks have you felt little interest or pleasure in doing things? (If yes,answer PHQ-9 below)No Physical Exam Constitutional: alert and [...] MD; Oct 17 2021 3:56PM EST (Author) NormalUH TouchworksTobacco Screening.on 83-26-6159Rnutl depression screening assessmentNo-[facility] Immunovaccine 250 DO Work Phone: Tobacco use status CPHSb) NoMP-[facility] HeartKhush 250 DO Work Phone: CBC AUTO DIFFon 03-71-6414DVED #0.1 103/ulNormal 0.0-0.1The [facility] CenterComment on above:Performed By: #### DATCBC #### [facility] [address] [place] [address] Dr. Stanton LangeBasophils/100 WBC (Bld)0.7 %Normal0.2-2.0The [facility] Comment on above:Performed By: #### DATCBC #### [facility] [address] [place] [address] Dr. Stanton Patino #0.3 103/ulNormal0.0-0.7The [facility] CenterComment on above: Performed By: #### DATCBC #### [facility] [address] [place] [address] Dr. Stanton Galanosinophils/100 WBC (Bld)3.3 %Normal0.9-7.0The [facility] Comment on above:Performed By: #### DATCBC #### [facility] [address] [place] [address] Dr. Stanton Galanrythrocyte distribution width (RBC) [Ratio]12.5 %Vxnjxd93.0-15.0 The [facility] CenterComment on above:Performed By: #### DATCBC #### [facility] [address] [place] [address] Dr. Stanton LangeHematocrit (Bld) [Volume fraction]41.1 %Critically low42.0-54.0 The [facility] CenterComment on above:Performed By: #### DATCBC #### [facility] [address] [place] [address] Dr. Stanton LangeHemoglobin (Bld) [Mass/Vol]14.1 g/sJGhgjhx77.0-18.0The [facility] CenterComment on above:Performed By: #### DATCBC #### [facility] [address] [place] [address] Dr. Stanton Rosario #0.05 10e3/ulCritically high0.00-0.03The [facility] Comment on above:Performed By: #### DATCBC #### [facility] [address] [place] [address] Dr. Stanton Rosario %0.7 %Critically high0.0-0.5The [facility] CenterComment on above:Performed By: #### DATCBC #### [facility] [address] [place] [address] Dr. Stanton Puentes #2.7 103/ulNormal1.2-3.8The [facility] CenterComment on above:Performed By: #### DATCBC #### [facility] [address] [place] [address] Dr. Stanton Honghocytes/100 WBC (Bld)34.8 %Dtbdrm10.5-60.0The [facility] CenterComment on above:Performed By: #### DATCBC #### [facility] [address] [place] [address] Dr. Stanton Loyola (RBC) [Entitic mass]32.1 wcXdajze89.9-34.0The [facility] CenterComment on above:Performed By: #### DATCBC #### [facility] [address] [place] [address] Dr. Stanton Curtis (RBC) [Mass/Vol]34.3 g/vRFvhwnu23.9-35.2The [facility] CenterComment on above:Performed By: #### DATCBC #### [facility] [address] [place] [address] Dr. Stanton Zhong (RBC) [Entitic vol]93.6 kZHhkyle98.0-94.0The [facility] CenterComment on above:Performed By: #### DATCBC #### [facility] [address] [place] [address] Dr. Stanton Malin #0.5 103/ulNormal0.3-0.8The [facility] HospitalComment on above:Performed By: #### DATCBC #### [facility] [address] [place] [address] Dr. Stanton Clintonocytes/100 WBC (Bld)5.9 %Normal1.7-12.0The [facility] on above:Performed By: #### DATCBC #### [facility] [address] [place] [address] Dr. Stanton Obando #4.2 103/ulNormal1.4-6.5The [facility] CenterComment on above:Performed By: #### DATCBC #### [facility] [address] [place] [address] Dr. Stanton Phillipsutrophils/100 WBC (Bld)54.6 %Dnagcd58.0-75.0The [facility] CenterComment on above:Performed By: #### DATCBC #### [facility] [address] [place] [address] Dr. Stanton LangePlatelet mean volume (Bld) [Entitic vol]9.7 fLNormal9.5-13.5The [facility] CenterComment on above:Performed By: #### DATCBC #### [facility] [address] [place] [address] Dr. Stanton LangePLT155 103/mjSftkmh172-334Eon [facility] CenterComment on above: Performed By: #### DATCBC #### [facility] [address] [place] [address] Dr. Stanton LangeRBC4.39 106/ulCritically low4.70-6.10The [facility] CenterComment on above:Performed By: #### DATCBC #### [facility] [address] [place] [address] Dr. Stanton LangeWBC7.7 103/ulNormal4.0-11.0The [facility] CenterComment on above: Performed By: #### DATCBC #### [facility] [address] [place] [address] Dr. Stanton Maurice- BMP WITH LIPIDon 43-61-2215Lekgb gap [Moles/Vol]13.3 mmol/L NormalThe [facility] CenterComment on above:Performed By: #### DATPSA, DATBMP #### [facility] [address] [place] [address] Dr. Stanton LangeCalcium [Mass/Vol]8.6 mg/dLNormal8.4-10.2The [facility] Comment on above:Performed By: #### DATPSA, DATBMP #### [facility] [address] [address] [address] Stanton LangeChloride [Moles/Vol]105 mmol/DNrjzim04-571YqkWood [facility] Hospital Comment on above:Performed By: #### DATPSA, DATBMP #### [facility] [address] [address] [address] Stanton LangeCholesterol [Mass/Vol]202 mg/dLCritically high<=200The [facility] CenterComment on above:Performed By: #### DATPSA, DATBMP #### [facility] [address] [place] [address] Dr. Stanton LangeCholesterol in HDL [Mass/Vol]37 mg/dLKettering Health Washington Township Comment on above:Performed By: #### DATPSA, DATBMP #### [facility] [address] [place] [address] Dr. Stanton LangeCholesterol in LDL [Mass/Vol]115.0 mg/dLNoTriHealth Good Samaritan HospitalComment on above:Performed By: #### DATPSA, DATBMP #### [facility] [address] [place] [address] Dr. Stanton LangeCO2 [Moles/Vol]26.6 mmol/WXkxnpz76.0-30.0[facility] Comment on above:Performed By: #### DATPSA, DATBMP #### [facility] [address] [place] [address] Dr. Stanton LangeCreatinine [Mass/Vol]1.32 mg/dLCritically high0.66-1.25The [facility] CenterComment on above:Performed By: #### DATPSA, DATBMP #### [facility] [address] [place] [address] Dr. Stanton GalanGFR-AF WELSH>60Normal>=60[facility] HospitalComment on above:Performed By: #### DATPSA, DATBMP #### [facility] [address] [place] [address] Dr. Stanton GalanGFR-NON AF VTCVORJZ74 mL/min/1.96t5Ykfvwfpmyg low>=60[facility] HospitalComment on above:Performed By: #### DATPSJeferson DATBMP #### [facility] [address] [address] [address] Stanton LangeGlucose [Mass/Vol]130 mg/dLCritically qxba73-846Atd [facility] CenterComment on above:Performed By: #### DATPSJeferson DATBMP #### [facility] [address] [address] [address] Stanton Perkins NORMAL> or = 60 mg/dl - LOW CARDIOVASCULAR RISK <40 mg/dl - HIGH CARDIOVASCULAR RISKKettering Health Washington TownshipComment on above:Performed By: #### DATPSJeferson DATBMP #### [facility] [address] [place] [address] Dr. Stanton LangeLDL CALC NORMALSEE BELOWKettering Health Washington TownshipComment on above:Result Comment: <100 mg/dl OPTIMAL 100 - 129 mg/dl NEAR OR ABOVE OPTIMAL 130 - 159 mg/dl BORDERLINE HIGH 160 - 189 mg/dl HIGH >190 mg/dl VERY HIGH Performed By: #### DATPSJeferson DATBMP #### [facility] [address] [address] [address] Stanton LangePotassium [Moles/Vol]3.9 mmol/LNormal3.4-5.0[facility] Comment on above:Performed By: #### DATPSJeferson DATBMP #### [facility] [address] [address] [address] Stanton LangeSodium [Moles/Vol]141 mmol/FRkuwvn548-940Yzl [facility] Comment on above:Performed By: #### DATPSJeferson DATBMP #### [facility] [address] [address] [address] Stanton LangeTriglyceride [Mass/Vol]250 mg/dLCritically high<=150The [facility] CenterComment on above:Performed By: #### DATPSA DATBMP #### [facility] [address] [address] [address] Stanton LangeUrea nitrogen [Mass/Vol]26.0 mg/dLCritically high9.0-20.0The [facility] CenterComment on above:Performed By: #### DATPSA, DATBMP #### [facility] [address] [address] [address] Stanton LangeUrea nitrogen/Creatinine [Mass ratio]19.7 mg/mgNoTriHealth Good Samaritan HospitalComment on above:Performed By: #### DATPSA, DATBMP #### [facility] [address] [address] [address] Stanton LangeVLDL CALC50.0 mg/dLKettering Health Washington TownshipComment on above: Performed By: #### DATPSA, DATBMP #### [facility] [address] [address] [address] Stanton Lange Vital Signs Date TimeVital SignValuePerforming VkbrltbmvTzoierdf17-91-2962 08:49-0400 Diastolic blood iaxrjcot09 mm[Hg]Lanie Cruz MD Work Phone: [phone] [place], [place] 7073307-22-2025 08:49-0400 Systolic blood bmslugkm268 mm[Hg]Lanie Cruz MD Work Phone: [phone] [place], [place] 7073307-22-2025 08:39-0400 Body wowkpp537.6 cmLanie Cruz MD Work Phone: [phone] [place], [place] 7073307-22-2025 08:39-0400 Body mass index (BMI) [Ratio]31.76 kg/z1YkfwapLanie Cruz MD Work Phone: [phone] [place], [place] 7073307-22-2025 08:39-0400 Body qahfqq42.27 kgLanie Cruz MD Work Phone: [phone] [place], [place] 7073307-22-2025 08:39-0400 Heart rate78 /minLanie Cruz MD Work Phone: [phone])086-[address] [place], [place] 7073302-19-2025 08:45-0500 Diastolic blood guhusrlj79 mm[Hg]Xavi Ball DO Work Phone: [facility]02-19-2025 08:45-0500 Heart rate80 /minBenjamin Ball DO Work Phone: [facility]02-19-2025 08:45-0500 Respiratory rate16 /minBenjamin Ball DO Work Phone: [phone]02-19-2025 08:45-0500 SaO2% (BldA) [Mass fraction]94 %Xavi Ball DO Work Phone: [phone]02-19-2025 08:45-0500 Systolic blood hyqycxry959 mm[Hg]Xavi Ball DO Work Phone: [phone]02-19-2025 07:31-0500 Body jvoxrl565.64 cmBenjamin Ball DO Work Phone: [phone]02-19-2025 07:31-0500 Body pxlviq71.36 kgBenjamin Ball DO Work Phone: [phone]12-09-2024 10:27-0500 Blood Pressure LocationPatrick N-1-1 [facility]12-09-2024 10:27-0500Body cywvynfxpzk22.6 [degF]Yoseph CHA [facility]12-09-2024 10:27-0500Diastolic blood qjnygrln51 mm[Hg]Yoseph CHA [facility]12-09-2024 10:27-0500Heart rate69 /minPatrick N-1-1 [facility]12-09-2024 10:27-0500Respiratory rate16 /minPatrick N-1-1 [facility]12-09-2024 10:27-0500Systolic blood mm[Hg]Yoseph CHA [facility]12-02-2024 11:10-0500Body .64 cmBenjamin Ball DO Work Phone: [facility]12-02-2024 11:10-0500 Body mass index (BMI) [Ratio]32.1 kg/q6Eljfhrrp Ball DO Work Phone: [phone]12-02-2024 11:10-0500 Body epqsca99.37 kgBenjamin Ball DO Work Phone: [phone]12-02-2024 11:10-0500 Diastolic blood mm[Hg]Xavi Ball DO Work Phone: [phone]12-02-2024 11:10-0500 Heart rate76 /minBenjamin Ball DO Work Phone: [phone]12-02-2024 11:10-0500 Respiratory rate12 /minBenjamin Ball DO Work Phone: [facility]12-02-2024 11:10-0500 Systolic blood eqeuxcqv638 mm[Hg]Xavi Ball DO Work Phone: [phone]07-17-2024 08:45-0400 Diastolic blood tklgsply92 mm[Hg]Lanie Cruz MD Work Phone: [facility]07-17-2024 08:45-0400 Systolic blood mm[Hg]Lanie Cruz MD Work Phone: [facility]07-17-2024 08:32-0400 Body qaubmk822.6 cmLanie Cruz MD Work Phone: [facility]07-17-2024 08:32-0400 Body mass index (BMI) [Ratio]31.47 kg/f9JlhfffLanie Cruz MD Work Phone: [facility]07-17-2024 08:32-0400 Body miurxv86.45 kgLanie Cruz MD Work Phone: [facility]07-17-2024 08:32-0400 Heart rate64 /minLanie Cruz MD Work Phone: [facility]04-29-2024 08:53-0400 Blood Pressure LocationPacarolharman CHA [facility]04-29-2024 08:53-0400Body opnosjoqvde32.6 [degF]Yoseph [facility]04-29-2024 08:53-0400Diastolic blood mm[Hg]Yoseph [facility]04-29-2024 08:53-0400Heart rate78 /minYoseph CHA [facility]04-29-2024 08:53-0400Respiratory rate16 /minYoseph CHA [facility]04-29-2024 08:53-0400Systolic blood mm[Hg]Yoseph [facility]12-11-2023 10:51-0500Blood Pressure LocationPacarolharman CHA [facility]12-11-2023 10:51-0500Diastolic blood mm[Hg]Yoseph [facility]12-11-2023 10:51-0500Heart rate73 /minPatrick CHA [facility]12-11-2023 10:51-0500Respiratory rate16 /minPatrick CHA [facility]12-11-2023 10:51-0500Systolic blood mhkyrsdp116 mm[Hg]Yoseph CH[facility]11-28-2023 10:30-0500Body gvbuoa751.64 cmBenjamin Ball Other [facility] [place] Other 11-28-2023 10:30-0500Body mass index (BMI) [Ratio] 32.08 kg/t6Vfsqldza Ball Other [employer] Other 11-28-2023 10:30-0500Body wbcthu38.18 kgBenjamin Ball Other [employer] [place] Other 11-28-2023 10:30-0500Diastolic blood akiwlbjb34 mm[Hg] Xavi Ball [facility] [place] Other 11-28-2023 10:30-0500Respiratory rate12 /minBenjamin Ball Other [employer] Other 11-28-2023 10:30-0500Systolic blood mm[Hg] Xavi Ball Other [employer] Other 07-18-2023 08:56-0400Body .64 cmBenjamin E Ball Work Phone: [phone]-YdvmczovfxSedgwick 250 DO Work Phone: 1(402) 527-338407-18-2023 08:56-0400Body mass index (BMI) [Ratio] 31.47 kg/r0Vvxxlepj E Ball Work Phone: mp353-0836GS-Aiusboqwgy-[place] [address] DO Work Phone: 1(174) 163-237707-18-2023 08:56-0400Body surface area Derived from formula1.98 c8Gdrvdpdg E Ball Work Phone: mp477-9431EV-Wupsbtujfa-[address] 250 DO Work Phone: 1(490) 802-459507-18-2023 08:56-0400Body zdjavt29.45 kgBenjamin E Ball Work Phone: [phone]-Dnfleeminv-[address] 250 DO Work Phone: 1(602) 629-132107-18-2023 08:56-0400Diastolic blood mm[Hg] Xavi E Ball Work Phone: mp094-3806GX-Aemowkcotb-[place] [address] DO Work Phone: 1(232) 228-957407-18-2023 08:56-0400Heart rate76 /minBenjamin E Ball Work Phone: [phone]-Qwqbirvfeb-[place] [address] DO Work Phone: 1(456) 380-509007-18-2023 08:56-0400Systolic blood pzffywwi289 mm[Hg] Xavi E Ball Work Phone: mp569-6486IP-Uxxlkzxlyu-[address] 250 DO Work Phone: 1(277) 256-104706-19-2023 09:38-0400Blood Pressure LocationPatrick CH[facility]06-19-2023 09:38-0400Diastolic blood upjndkdt60 mm[Hg]Yoseph [facility]06-19-2023 09:38-0400Heart rate77 /minPatrick CHA [facility]06-19-2023 09:38-0400Respiratory rate16 /minPatrick CHA [facility]06-19-2023 09:38-0400Systolic blood buhjcmwh630 mm[Hg]Yoseph CH[facility]02-06-2023 09:17-0500Diastolic blood olnnjqhf399 mm[Hg]Yoseph CH[facility]02-06-2023 09:17-0500Mean blood muiujhzd054 mm[Hg]Yoseph CH[facility]02-06-2023 09:17-0500Systolic blood jkqjuzia944 mm[Hg]Yoseph [facility]02-06-2023 09:08-0500Blood Pressure LocationPatrick CHA [facility]02-06-2023 09:08-0500Diastolic blood bfrdnocd090 mm[Hg]Yoseph [facility]02-06-2023 09:08-0500Heart rate82 /minPatrick CHA [facility]02-06-2023 09:08-0500Respiratory rate16 /minPatrick CHA [facility]02-06-2023 09:08-0500Systolic blood mm[Hg]Yoseph CH[facility]07-27-2022 09:20-0400Diastolic blood mm[Hg]Xavi E Ball Work Phone: mp783-3289BG-Ggwsg [facility] [address] DO Work Phone: 1(137) 768-206507-27-2022 09:20-0400Systolic blood mm[Hg] Xavi E Ball Work Phone: mp550-5281IK-Morgn [facility] [address] DO Work Phone: 1(142) 363-794107-27-2022 09:06-0400Body flnkyi714.64 cmBenjamin E Ball Work Phone: mp117-8244OX-Hlput [facility] [address] DO Work Phone: 1(533) 744-230507-27-2022 09:06-0400Body mass index (BMI) [Ratio] 32.12 kg/z6Iwnbowpw E Ball Work Phone: mp404-7091LW-MjdliSand[facility]-[address] 250 DO Work Phone: [phone]139 09:06-0400Body surface area Derived from formula2 k3Bxrugofh E Ball Work Phone: mp056-0313QA-Jubvu [facility]-[address] DO Work Phone: 1(563) 186-947207-27-2022 09:06-0400Body upeusa61.27 kgBenjamin E Ball Work Phone: mp768-2163OM-AszzbSandstone Critical Access Hospital-[address] 250 DO Work Phone: 1(684) 626-806507-27-2022 09:06-0400Diastolic blood mxeueepk29 mm[Hg] Xavi Garcia Ball Work Phone: [phone] 473-2923926-7478HR-Fmant [facility] [address] DO Work Phone: 1(236) 665-636807-27-2022 09:06-0400Heart rate70 /minBenjamin E Ball Work Phone: mp230-9106MB-Jffyi [facility] [address] DO Work Phone: 1(121) 735-467807-27-2022 09:06-0400Systolic blood pisbqwtj688 mm[Hg] Xavi E Ball Work Phone: mp236-6270FU-Thgjx [place] [facility]-[address] 250 DO Work Phone: Encounters Encounter DateEncounter TypeCare ProviderFacilityStart: 78-19-1989lovslcvrfw Yoseph CHAFacility:EU tart: 10-12-2024 End: 57-45-2444Tqvbyj outpatient visit 25 minutesLanie Cruz MD Work Phone: [facility] on above:Essential hypertension (Primary Dx); Mixed hyperlipidemia; BMI 31.0-31.9,adult; Never smoked tobacco; Obesity, Class I, BMI 30-34.9; PrediabetesStart: 66-94-6954Grs-patient / Non-visitBenjamin Ball DO Work Phone: [facility] Work Phone: Start: 05-12-2024 End: 49-15-4234Fhvosnemp to same day surgery centerBecatrina Ball DO Work Phone: [facility] Work Phone: Start: 05-12-2024 End: 45-78-5664fempbmffvaKcohzbt J DittyFacility:[facility]art: 03-01-2024 End: 25-83-6532udrzeabuahBrgczpw R WATERSFacility:EU tart: 03-01-2024 End: 51-95-3582Nptehik encounter procedureYoseph CHA [facility] start: 02-23-2024 End: 79-09-3854Dulauif encounter procedureBenjamin Ball DO Work Phone: [facility] Work Phone: Start: 84-31-4421Ata-patient / Non-visitBenjamin Ball DO Work Phone: [facility] Work Phone: Start: 10-08-2023 End: 52-23-4721Kvykzo outpatient visit 25 minutesLanie Cruz MD Work Phone: [facility] on above:Obesity, Class I, BMI 30- 34.9 (Primary Dx); Essential hypertension; Hyperlipidemia, unspecified hyperlipidemia type; BMI 31.0-31.9,adult; Never smoked tobaccoStart: 10-08-2023 End: 61-23-6662hfqkfgkvnnWKEJSU [facility] HospitalStart: 07-21-2023 End: 78-14-8907axhbaezfzkGhyypko R WATERSFacility:EU [place]vueStart: 07-21-2023 End: 67-16-3422Zhwmjya encounter procedureYoseph CHA [facility] start: 04-29-2023 End: 13-20-2507rvlbudhqzzYljjxsyh Ball Other [facility] [place] Other Start: 25-24-4518Vfnotildz encounterXavi HensleyHONORHE[facility] ClinicStart: 04-21-2023 End: 21-25-0983vfxzxxwnhlLqyudgc R WATERSFacility:EU [place]vueStart: 03-31-2023 End: 48-52-7128gshzhvutbtQxxtflj R WATERSFacility:EU [place]vueStart: 03-31-2023 End: 56-22-4192Jhszmno encounter procedureYoseph CHA [facility] start: 03-27-2023 End: 53-59-3956xccvbhmltfTdrghte R WATERSFacility:CD:[id number]: 03-21-2023 End: 50-19-7076nafnbfyiakKvrou M. LueFacility:EU [place]kyStart: 03-21-2023 End: 80-01-6090Gldoatk encounter Terry Griffith [facility] Kvng Start: 03-19-2023 End: 54-12-8468exostytkjxMuxmtya R WATERSFacility:EU [place]vueStart: 03-19-2023 End: 22-33-4914Itzgjby encounter procedurePaamna CHA [facility] start: 03-03-2023 End: 19-61-7573Ffonxra encounter procedureYoseph CHA [facility] start: 02-18-2023 End: 57-15-8437uugkovbdckSrytpifr Ball Other [place] Other Start: 92-45-2669Kwhuink encounter procedureBecatrina Hensley [facility] ClinicStart: 89-23-4022Sjzitt outpatient visit 15 minutes Xavi Hensley Work Phone: [phone]-DlsjeqecqzKvng 250 DO Work Phone: Start: 69-44-3462sscqidcbijEwSandra Balderasim Facility:[id number]: 09-09-2022 End: 06-17-2234Idmapwt encounter procedureYoseph CHA [facility] start: 05-21-2022 End: 26-45-2351Adiqxyu encounter procedureYoseph CHA [facility] Start: 04-29-2022 End: 35-00-5291Dhynppq encounter procedureYoseph CHA [facility] start: 03-19-2022 End: 60-78-6314wjdjysslvnIU XAVI HENSLEYFacility:I0Dkljo: 03-14-2022 End: 03-10-3843rfcnkpyuyiCZ XAVI HENSLEYFacility:F3Pwtbm: 81-35-8960Ykylodpth for general adult medical examination without abnormal findingsDR NONE LISTED REQUESTThe [facility] HospitalStart: 02-26-2022 End: 78-23-7222jxnqmbjtaoLG XAVI HENSLEYFacility:T8Fbpzg: 02-26-2022 End: 50-22-1809Vewhapeey for general adult medical examination without abnormal findingsDR XAVI HENSLEYFacility:C6Kklku: 11-14-2021 End: 31-61-2635rnyfguisziBRMRN Rachael [facility]ENTERFacility:S9Tskpw: 29-73-5921Sumfuk outpatient visit 25 minutesBecatrina Hensley Work Phone: [phone]-IwzwvSt. Luke's Hospital 250 DO Work Phone: Start: 29-94-7456ctqcyudsirUgSandra Hensley Facility:[id number]: 03-28-2021 End: 07-76-0572rguzimxbhjQE NONE LISTED REQUESTFacility:A3Zlgjr: 01-29-2018 Patient encounter procedureLANIE CRUZFacility:1532 Procedures DateProcedureProcedure DetailPerforming ClinicianStart: 56-37-3699Btbicfzqh colonoscopyBecatrina Hensley DO Work Phone: Start: 63-66-0655PzwmezgkrpfUlujhc Ibrahim MD Work Phone: Start: 54-39-9287Huunezkorfuhh prostatectomyPatrick CHA Start: 10-23-9166EfcxueyjajLhjezxe CHA Start: 99-59-3185HJP screeningDR XAVI HENSLEYComment on above:Performed By: #### DATPSA, DATBMP #### [facility] [address] [place] [address] Dr. Stanton Wooten: 87-06-8169TNI screeningDR XAVI Spence on above: Performed By: #### DATPSJeferson, DATBMP #### [facility] [address] [place] [address] Dr. Stanton Wooten: 41-04-7573Bnrpg colonoscopyBenjamin E Ball Work Phone: Dental implant procedureBenjamin E Ball Work Phone: Hernia repairBenjamin E Ball Work Phone: Herniated structure (morphologic abnormality)Yoseph CHA TonsillectomyBenjamin E Ball Work Phone: TonsillectomyPatrick [address] Plan of Treatment DateCare ActivityDetailAuthorStart: 54-98-3656Lnbgdbtmo for malignant neoplasm of [facility]: 81-98-0945WEA High Risk: (Elderly (60+) or Population) (1 - 1-dose 75+ series)RSV High Risk: (Elderly (60+) or Population) (1 - 1-dose 75+ series)[facility]: 10-06-2025 End: 54-97-3115Hawqgcy encounter pfftlrtik63/16/2026 8:30 AM EDT Office Visit [address] [address] Lanie Cruz MD [address] [place] [address] 2, [facility] [address] [place] [address] [facility]: 80-33-1947Hymjchznp vaccinationInfluenza Vaccine (#1)[facility]: 10-12-2024 End: 60-69-7436Ecninfc encounter ziqbcczvh58/22/2025 8:30 AM EDT Office Visit [address] [place] [address] Lanie Cruz MD [address] [place] [address] 2, Michael [address] [place] [address] [facility]: 50-47-0686SagmlztmhParkview Healthtart: 91-19-0674Efmmiyv [facility] Work Phone: Start: 11-29-2024Medicare Annual Wellness Visit Medicare Annual Wellness Visit (AWV)[facility]: 02-31-3949ACUJP-19 Vaccine ( season)COVID-19 Vaccine ( season)[facility]: 92-49-8201Labgqvurv vaccination Influenza Vaccine (#1)[facility]: 98-85-3754QSD, Provider: aLnie Cruz, Status: Pen, Time: 8:30 AMFUV, Provider: Lanie Cruz, Status: Pen, Time: 8:30 RAAH-Lqprxyueug-Owibbaie 250 DO Work Phone: Start: 37-94-6690Ozxfkzexvidf Vaccine: 65+ Years (1 of 1 - PCV)Pneumococcal Vaccine: 65+ Years (1 of 1 - PCV)[facility]: 55-21-4110XWRPU-19 Vaccine ( season)COVID-19 Vaccine ( season)[facility]: 75-26-5021DOH, Provider: Lanie Cruz, Status: Pen, Time: 9:00 AMFUV, Provider: Lanie Cruz, Status: Pen, Time: 9:00 AMSt[facility] 250 DO Work Phone: Start: 35-48-5752NNM patients and/or patients aged 60+ years (1 - 1-dose 60+ series)RSV patients and/or patients aged 60+ years (1 - 1-dose 60+ series)[facility]: 79-43-0089Nhrdvlvqeexr vaccinationPneumococcal Vaccine (1 of 1 - PCV)[facility]: 58-03-8609Mhzjwh Vaccines (1 of 2)Zoster Vaccines (1 of 2)[facility]: 87-72-4229MHvM/Tdap/Td Vaccines (1 - Tdap)DTaP/Tdap/Td Vaccines (1 - Tdap)[facility] Start: 31-20-9387Niklvihy mellitus screeningDiabetes ScreeningUnMercy Health St. [facility] Hospital: 52-63-0515Wgibzgepu C screeningHepatitis C ScreeningUnMercy Health St. Charles Hospital: 95-72-1855BNE Vaccines (1 of 1 - Standard series)MMR Vaccines (1 of 1 - Standard series)[facility]: 01-22-3817Mswbcy wellness visitMedicare Initial Physical (IPPE) [facility]: 08-26-5075Phxri panelLipid Panel [facility]: 18-22-4261Ommumyuda for malignant neoplasm of colonUnUniversity Hospitals Geneva Medical CenterPatient EducationHemorrhoids Colon polyps Know your MedRegency [facility] Work Phone: [facility] referralOhio[facility] Work Phone: Immunizations Immunization DateImmunizationNotesCare RepeowcwFzapmwot58-51-0284Jcsvig-JsjRDpoe COVID-19 Vacc 30 MCG/0.3ML Intramuscular SuspensionBenjamin E Ball Work Phone: [facility]04-23-2021Pfizer-BioNTech COVID-19 Vacc 30 MCG/0.3ML Intramuscular SuspensionBenjamin E Ball Work Phone: [facility]04-02-2021Pfizer-BioNTech COVID-19 Vacc 30 MCG/0.3ML Intramuscular SuspensionBenjamin E Ball Work Phone: [facility]03-12-2021Pfizer-BioNTech COVID-19 Vacc 30 MCG/0.3ML Intramuscular SuspensionBenjamin E Ball Work Phone: [facility]01-[facility]-2008influenza virus vaccine, unspecified formulationBenjamin E Ball Work Phone: [phone]-Fhavn [facility] 250 DO Work Phone: Payers DatePayer CategoryPayerPolicy [id number] MEDICARE AETNA GOLDEN MEDICARE [id number] 2022-Present [address] [place] [address] [id number] 2023Medicare (Managed Care)AETNA GOLDEN MEDICARE [id number] [id number]-[id number] [id number] 2..1.535503.3.57[id number] 2.0.1.931251.3.57[id number] 2..1.854829.3.57[id number] 2.0.1.566621.3.57[id number] 2.16.840.1.060662.3.57[id number] 2.16.840.1.882807.3.57[id number] 2.16.840.1.971117.3.57[id number] 2.840.1.652204.3.57[id number] 2.840.1.577517.3.57[id number] 2.840.1.696449.3.57[id number] 2.840.1.192405.3.57[id number] 2.840.1.871710.3.57[id number] 2.840.1.018495.3.57[id number] 2.840.1.660416.3.57[id number] 2.840.1.636317.3.579.2.77367-75-9610Kffqvtb Health [id number] UnknownMEDICAL [facility]ART AND LUNG [id number] Social History DateTypeDetailFacilityStart: 10-08-2023 End: 66-50-1074Gjfavlk useAlcohol useMulticare Health Heart-Kvng 250 DO Work Phone: Start: 04-29-2022 End: 80-12-3386Pnkaclm smoking statusNever smoked tobacco (finding)[facility]Start: 15-94-7507Hyuywch smoking statusNeverExecutive [facility]rology of [facility] DaytonueStart: 10-08-2023 End: 72-76-8866Afy Assigned At [facility] Hospitaltart: 76-17-4482Dbenfjy use and exposureSmokeless tobacco non-userUnUniversity Hospitals [facility] Work Phone: Start: 10-08-2023 End: 17-20-6289Mijleezok beverage intakeEx-drinker (finding)[facility] Work Phone: Start: 44-84-5098Qtn assigned at birthNot on file [facility] Work Phone: Start: 09-28-2023 End: 53-98-1784Hiyvrlne to SARS-CoV-2 (event)Not sureUnUniversity Hospitals Geneva Medical CenterStart: 48-94-0039MguJixc (finding)[facility] Start: 95-03-0962Vbq Assigned At [facility] Medical Equipment Procedure CodeEquipment CodeEquipment Original TextEquipment IdentifierDates Blood Sugar Diagnostic (Freestyle Lite Strips) stripStart: 02-23-2024 Goals DatePatient GoalDesired Activity/State Functional Status AxofZsptzlvobwCzfemyVeebkaol21-34-8189Wmovvjtpxk StatusN/AExec[facility] of [facility]04-29-2024Functional StatusN/A[facility]12-11-2023Functional StatusN/A [facility]06-19-2023Functional StatusN/A[facility]02-21-2023 [facility]N/[facility]Functional StatusN/A [facility] Jennifer Clinical Notes 11-15-2021 to 10-12-2024 Note Date & [id number] History of Present illness Narrative* Lanie Cruz MD - 10/12/2024 8:30 AM EDT HPI Patient is in the office for annual follow-up for essential hypertension hyperlipidemia. Since he was last seen in the office last year he was noted that his blood sugar was rising but no medical therapy was instituted by his PCP. His last blood work in January 2024 revealed LDL cholesterol 118 mg/dL, potassium 4.7 mmol/L with normal BUN/creatinine. He maintains a very active lifestyle but his weight has not changed. Apparently his eating portions are above what is recommended. He reports no palpitations chest pain or dyspnea. He is compliant taking his blood pressure medications and his pressures normal at home and in the office. He follows low-salt diet and has no sleep apnea. Assessment/recommendations: 1- essential hypertension presently under control medical therapy with no changes needed. He is currently on lisinopril and carvedilol which have been well-tolerated. Basic metabolic profile from 2023 was reviewed and was unremarkable. He follows low-salt diet and maintains active lifestyle, there is no alcohol abuse and no sleep apnea. Encouraged more weight loss. 2-dyslipidemia , currently on ezetimibe 10 mg daily which has been tolerated. LDL cholesterol 118 mg/dL January 2024. He follows low-fat diet. He need to lose weight and reduce portions. 3-class I obesity.encouraged patient to continue to work on low-calorie diet and maintain regular exercise. 4-prediabetes, the patient is advised to continue to stay physically active and lose weight, reducecarbohydrates and portions in general. Patient will follow-up with any office in 1 year ROS Review of system was entirely normal Vitals: 10/12/24 0839 10/12/24 0849 BP: 144/80 137/80 BP Location: Left arm Left arm Patient Position: Sitting Sitting Pulse: 78 Weight: 89.3 kg (196 lb 12.8 oz) Height: 1.676 m (5' 6 ) Objective Physical Exam Constitutional: Appearance: Normal appearance. HENT: Nose: Nose normal. Neck: Vascular: No carotid bruit. Cardiovascular: Rate and Rhythm: Normal rate. Pulses: Normal pulses. Heart sounds: Normal heart sounds. Pulmonary: Effort: Pulmonary effort is normal. Abdominal: General: Bowel sounds are normal. Palpations: Abdomen is soft. Musculoskeletal: General: Normal range of motion. Cervical back: Normal range of motion. Right lower leg: No edema. Left lower leg: No edema. Skin: General: Skin is warm and dry. Neurological: General: No focal deficit present. Mental Status: He is alert. Psychiatric: Mood and Affect: Mood normal. Behavior: Behavior normal. Thought Content: Thought content normal. Judgment: Judgment normal. Allergies Patient has no known allergies. Current Medications Current Outpatient Medications Medication Instructions APPLE CIDER VINEGAR ORAL Take by mouth. carvedilol (Coreg) 6.25 mg tablet 1 tablet, 2 times daily dutasteride (AVODART ORAL) 1 capsule, Daily ezetimibe (Zetia) 10 mg tablet 1 tablet, Daily lisinopril 20 mg tablet 1 tablet, Daily magnesium oxide (MAG-OX) 250 mg, Daily multivitamin (Daily Multi-Vitamin) tablet 1 tablet, Daily omega 6-vzs-ebl-fish oil (Fish OiL) 1,200 (144-216) mg capsule 2 capsules, Daily Assessment/Plan 1. Essential hypertension Follow Up In Cardiology Follow Up In Cardiology 2. Mixed hyperlipidemia 3. BMI 31.0-31.9,adult 4. Never smoked tobacco 5. Obesity, Class I, BMI 30-34.9 6. Prediabetes Scribe Attestation By signing my name below, I, Sasha Sparrow LPN attest that this documentation has been prepared under the direction and in the presence of Lanie Cruz MD. Provider Attestation - Scribe documentation All medical record entries made by the Scribe were at my direction and personally dictated by me. Ihadis reviewed the chart and agree that the record accurately reflects my personal performance of the history, physical exam, discussion and plan. documented in this [facility] Work Phone: 1(902) 965-314807-22-2025 Instructions* Patient Instructions* Kenia Lowery LPN - 10/12/2024 8:30 AM EDT Please bring all medicines, vitamins, and herbal supplements with you when you come to the office. Prescriptions will not be filled unless you are compliant with your follow up appointments or have a follow up appointment scheduled as per instruction of your physician. Refills should be requested at the time of your visit. BMI was above normal measurement. Current weight: 89.3 kg (196 lb 12.8 oz) Weight change since last visit (-) denotes wt loss 1.8 lbs Weight loss needed to achieve BMI 25: 42.2 Lbs Weight loss needed to achieve BMI 30: 11.3 Lbs Provided instructions on dietary changes. * Attachments The following attachments cannot be sent through Care Everywhere. * DASH Diet ([place] Islander) documented in this encounterTriHealth [facility] Work Phone: 1(478) 441-390702-19-2025 [place] [address] Gastroenterology H&P Signed Patient: Bob Nunez MR#: [id number] : 1960 Acct:[id number] Age/Sex: 64 / M Adm Date: 5 Loc: Room: Type: [facility] Attending Dr: Michael Partida MD Copies to: DO Michael Diaz MD~ Date of Service: 05/12/2024 HISTORY & PHYSICAL: Patient's history with special attention to the cardiovascular, pulmonary systems and the current problem was reviewed with the patient immediately prior to the procedure. Present medications and doses reviewed in the EMR. Allergies and pertinent laboratory tests were also re viewedat this time in the EMR. The physical examination, as below, was then performed. Indication, assessment and HPI: 64-year-old male presents for screening colonoscopy Family history of GI malignancy? no PHYSICAL EXAMINATION Mouth and Pharynx : moist mucus membranes, normal dentition Eyes: EOM intact b/l, normal sclera Pulmonary: normal respiratory effort, able to speak in complete sentences Neurological: alert and oriented x3, moves all extremities Skin: non-jaundiced, warm and dry Abdomen: non-distended, normal to inspection Psych: Mental status and mood grossly normal REVIEW OF SYSTEMS Constitutional: Denies malaise, fevers Cardiovascular: Denies chest pain, palpitations Respiratory: Denies shortness of breath, wheezing Gastrointestinal: Per HPI Genitourinary: Denies dysuria, polyuria Musculoskeletal: Denies joint swelling, joint stiffness Neurological: Denies numbness, tingling Integumentary: Denies rashes, skin lesions Endocrine: Denies fatigue, weight loss Written informed consent obtained from the patient. Risks (including but not limited to perforation, infection, bloating, bleeding, need for emergent surgeryand loss of life), benefits and alternatives explained and questions answered. The patient verbalized understanding. Based on history patient is an appropriate candidate for the procedure. Michael Partida MD Documented By: Michael Partida MD 05/12/24799 Signed By: 05/12/24799 [facility]02-19-2025 [place] [address] Colonoscopy Procedure Report Signed Patient: Bob Nunez MR#: [id number] : 1960 Acct:[id number] Age/Sex: 64 / M Adm Date: Loc: Room: Type: [facility] Attending Dr: Michael Partida MD Copies to: DO Michael Diaz MD~ Colonoscopy Date/Provider 05/12/2024 Michael Partida MD Narrative Procedure: Colonoscopy with polypectomy Indication: 64-year-old male presents for screening colonoscopy Pre-operative diagnosis: Screening Post-operative diagnosis: Colon polyps, hemorrhoids Sedation: propofol per anesthesia dept O2 oximetry, hemodynamic monitoring was performed pre, during, and post procedure. Patient was identified, H&P completed, patient was given full explanation of the procedure as well as associatedrisks and written consent wasobtained prior to procedure. Patient expressed complete understanding of the procedure as well as alternatives to the procedure and to anesthesia and agreed to proceed with the procedure as indicated. Patient was immediately reassessed prior to IV sedation. Under IV sedation, patient was placed in the left lateral decubitus position. Digital rectal exam was performed and normal. Colonoscope was inserted and passed proximally to the cecum, which was identified by the ileocecal valve, appendiceal orifice and cecal floor. Colonoscope was slowly withdrawnwith the findings as below. [place] bowel prep score was good. Findings: Cecum: Normal. Ascending colon: 4 mm polyp removed with cold snare, bottle 1. Hepatic flexure: Normal. Transverse colon: Diminutive polyp removed with cold forceps, bottle 2. Splenic flexure: Normal. Descending colon: 3 mm polyps removed with cold snare, bottle 3. Sigmoid colon: Normal. Rectum: Diminutive polyp removed with cold forceps, bottle 4. Retroflexed views: Demonstrated small hemorrhoids. Biopsy taken: no Complications: None EBL: minimal Recommendations: -Repeat colonoscopy in 3 years -Follow up pathology -Follow up in the office as needed -Follow up with PCP Following a period of recovery, patient was seen and given full explanation of the procedure. Patient tolerated the procedure well and will be discharged in satisfactory, stable condition. Michael Partida MD Documented By: Michael Partida MD 05/12/24 0800 Signed By: 05/12/24 0817 [facility]12-09-2024 Hospital Discharge instructions Patient Education 03/01/2024 11:06:10 Benign Prostatic Hyperplasia Benign Prostatic Hyperplasia Benign prostatic hyperplasia (BPH) is an enlarged prostate gland that is caused by the normal agingprocess. The prostate may get bigger as a man gets older. The condition is not caused by cancer. The prostate is a walnut-sized gland that is involved in the production of semen. It is located in front of the rectum and below the bladder. The bladder stores urine. The urethra carries stored urine ou t of the body. An enlarged prostate can press on the urethra. This can make it harder to pass urine. The buildup of urine in the bladder can cause infection. Back pressure and infection may progress to bladder damage and kidney (renal) failure. What are the causes? This condition is part of the normal aging process. However, not all men develop problems from thiscondition. If the prostate enlarges away from the [...] urethra. Follow these instructions at home: Take widf-xlo-fxymlxq and prescription medicines only as told by [...] provider. Document Revised: 09/26/2021 Document Reviewed: 09/26/2021 [employer] Patient Education 2023 [employer]se. Follow Up Care 07/21/2023 09:45:55 With:AVE MARTINEZ, Yoseph Gomez, URL Address: [facility] [address], [place] [address]- [phone] When: Unknown Comments:1 yr [facility] Jennifer 12-09-2024 NotePatient Education Urology Benign Prostatic Hyperplasia Benign prostatic hyperplasia (BPH) is an enlarged prostate gland that is caused by the normal agingprocess. The prostate may get bigger as a man gets older. The condition is not caused by cancer. The prostate is a walnut-sized gland that is involved in the production of semen. It is located in front of the rectum and below the bladder. The bladder stores urine. The urethra carries stored urine ou t of the body. An enlarged prostate can press on the urethra. This can make it harder to pass urine. The buildup of urine in the bladder can cause infection. Back pressure and infection may progress to bladder damage and kidney (renal) failure. What are the causes? This condition is part of the normal aging process. However, not all men develop problems from thiscondition. If the prostate enlarges away from the urethra, urine flow will not be blocked. If it enlarges toward the urethra and compresses it, there will be problems passing urine. What increases the risk? This condition is more likely to develop in men older than 50 years. What are the signs or symptoms? Symptoms of this condition include: ??? Getting up often during the night to urinate. ??? Needing to urinate frequently during the day. ??? Difficulty starting urine flow. ??? Decrease in size and strength of your urine stream. ??? Leaking (dribbling) after urinating. ??? Inability to pass urine. This needs immediate treatment. ??? Inability to completely empty your bladder. ??? Pain when you pass urine. This is more common if there is also an infection. ??? Urinary tract infection (UTI). How is this diagnosed? This condition is diagnosed based on your medical history, a physical exam, and your symptoms. Tests will also be done, such as: ??? A post-void bladder scan. This measures any amount of urine that may remain in your bladder after you finish urinating. ??? A digital rectal exam. In a rectal exam, your health care provider checks your prostate by putting a lubricated, gloved finger into your rectum to feel the back of your prostate gland. This exam detects the size of your gland and any abnormal lumps or growths. ??? An exam of your urine (urinalysis). ??? A prostate specific antigen (PSA) screening. This is a blood test used to screen for prostate cancer. ??? An ultrasound. This test uses sound waves [...] severity of your condition. Treatment may include: ??? Observation and yearly exams. This may be the only treatment needed if your condition and symptoms are mild. ??? Medicines to relieve your symptoms, including: ? Medicines to shrink the prostate. ? Medicines to relax the muscle of the prostate. ??? Surgery in severe cases. Surgery may include: ? Prostatectomy. In this procedure, the prostate tissue is removed completely through an open incision or with a laparoscope or robotics. ? Transurethral resection of the prostate (TURP). In this procedure, a tool is inserted through theopening at the tip of the penis (urethra). It is used to cut away tissue of the inner core of the prostate. The pieces are removed through the same opening of the penis. This removes the blockage. ? Transurethral incision (TUIP). In this procedure, small cuts are made in the prostate. This lessens the prostate's pressure on the urethra. ? Transurethral microwave thermotherapy (TUMT). This procedure uses microwaves to create heat. The heat destroys and removes a small amount of prostate tissue. ? Transurethral needle ablation (TUNA). This procedure uses radio frequencies to destroy and removea small amount of prostate tissue. ? Interstitial laser coagulation (ILC). This procedure uses a laser to destroy and remove a small amount of prostate tissue. ? Transurethral electrovaporization (TUVP). This procedure uses electrodes to destroy and remove a small amount of prostate tissue. ? Prostatic urethral lift. This procedure inserts an implant to push the lobes of the prostate awayfrom the urethra. Follow these instructions at home: ??? Take cdex-nav-nmdhmix and prescription medicines only as told by your health care provider. ??? Monitor your symptoms for any changes. Contact your health care provider with any changes. ??? Avoid drinking large amounts of liquid before going to bed or out in public. ??? Avoid or reduce how much caffeine or alcohol you drink. ??? Give yourself time when you urinate. ??? Keep all follow-up visits. This is important. Contact a health care provider if: ??? You have unexplained back pain. ??? Your symptoms do not get (more content not included)...[facility]12-02-2024 Evaluation note* Diagnosis Onset Date Resolution Status Admit Date [facility]:00am [facility] 20[facility] 11:00amScreening PSA (prostate specific antigen)[facility] 2023 11:00amType 2 diabetes mellitus with hyperglycemiaacuteChe[facility] 2023 11:00amMedicare annual wellness visit, initialnoneactive[facility] 2023 11:00am [facility] Work Phone: 1(640) 893-502707-17-2024 History of Present illness Narrative* Lanie Cruz MD - 10/08/2023 8:30 AM EDT Subjective Bob Nunez is a 63 y.o. male Chief Complaint Annual Exam HPI Patient is in the office for annual follow-up visit. He has had no events since he was last seen from a cardiovascular standpoint he had TURP surgery this past March with relief of symptoms. His weight has not changed since he was last seen a year ago. His pressure at home and in his PCPs office and in office today is under control. He has no side effect of current medications. He maintains active lifestyle and rides his bike regularly. Blood work from the fall 2022 was requested. Apart from class I obesity his physical examination was unremarkable. Assessment/recommendations: 1- essential hypertension presently under control medical therapy with no changes needed. Basic metabolic profile from the fall 2022 was requested from the hospital 2-dyslipidemia , currently on ezetimibe 10 mg daily which has been tolerated. 3-class I obesity.encouraged patient to continue to work on low-calorie diet: Regular exercise. Patient will follow-up with any office in 1 year Review of Systems All other systems reviewed and are negative. Vitals: 10/08/23 0832 10/08/23 0845 BP: 146/74 136/78 BP Location: Left arm Left arm Patient Position: Sitting Sitting Pulse: 64 Weight: 88.5 kg (195 lb) Height: 1.676 m (5' 6 ) Objective Physical Exam Constitutional: Appearance: Normal appearance. HENT: Nose: Nose normal. Neck: Vascular: No carotid bruit. Cardiovascular: Rate and Rhythm: Normal rate. Pulses: Normal pulses. Heart sounds: Normal heart sounds. Pulmonary: Effort: Pulmonary effort is normal. Abdominal: General: Bowel sounds are normal. Palpations: Abdomen is soft. Musculoskeletal: General: Normal range of motion. Cervical back: Normal range of motion. Right lower leg: No edema. Left lower leg: No edema. Skin: General: Skin is warm and dry. Neurological: General: No focal deficit present. Mental Status: He is alert. Psychiatric: Mood and Affect: Mood normal. Behavior: Behavior normal. Thought Content: Thought content normal. Judgment: Judgment normal. Allergies Patient has no known allergies. Current Medications Current Outpatient Medications: carvedilol (Coreg) 6.25 mg tablet, Take 1 tablet (6.25 mg) by mouth 2 times a day., Disp: , Rfl: dutasteride (AVODART ORAL), Take 1 capsule by mouth once daily., Disp: , Rfl: ezetimibe (Zetia) 10 mg tablet, Take 1 tablet (10 mg) by mouth once daily., Disp: , Rfl: lisinopril 20 mg tablet, Take 1 tablet (20 mg) by mouth once daily., Disp: , Rfl: magnesium oxide (Mag-Ox) 250 mg magnesium tablet, Take 1 tablet (250 mg) by mouth once daily., Disp: , Rfl: multivitamin (Daily Multi-Vitamin) tablet, Take 1 tablet by mouth once daily., Disp: , Rfl: omega 5-yhr-qin-fish oil (Fish OiL) 1,200 (144-216) mg capsule, Take 2 capsules (2,400 mg) by mouthonce daily., Disp: , Rfl: Assessment/Plan 1. Obesity, Class I, BMI 30-34.9 2. Essential hypertension Follow Up In Cardiology 3. Hyperlipidemia, unspecified hyperlipidemia type 4. BMI 31.0-31.9,adult 5. Never smoked tobacco Scribe Attestation By signing my name below, I, Alina Hutchinson LPN , Scribe attest that this documentation has been prepared under the direction and in the presence of Lanie Cruz MD. Provider Attestation - Scribe documentation All medical record entries made by the Scribe were at my direction and personally dictated by me. Ihave reviewed the chart and agree that the record accurately reflects my personal performance of the history, physical exam, discussion and plan. documented in this encounterTri[facility] Work Phone: 1(951) 372-942207-17-2024 Instructions* Patient Instructions* Alina Gonzáles LPN - 10/08/2023 8:30 AM EDT Please bring all medicines, vitamins, and herbal supplements with you when you come to the office. Prescriptions will not be filled unless you are compliant with your follow up appointments or have a follow up appointment scheduled as per instruction of your physician. Refills should be requested at the time of your visit. BMI was above normal measurement. Current weight: 88.5 kg (195 lb) Weight change since last visit (-) denotes wt loss 0 lbs Weight loss needed to achieve BMI 25: 40.4 Lbs Weight loss needed to achieve BMI 30: 9.5 Lbs Provided instructions on dietary changes Provided instructions on exercise. Follow up one year Same meds documented in this encounterTriHealth [facility] Work Phone: 1(922) 121-578504-29-2024 Hospital Discharge instructions Patient Education 07/21/2023 09:40:23 Benign Prostatic Hyperplasia Benign Prostatic Hyperplasia Benign prostatic hyperplasia (BPH) is an enlarged prostate gland that is caused by the normal agingprocess. The prostate may get bigger as a man gets older. The condition is not caused by cancer. The prostate is a walnut-sized gland that is involved in the production of semen. It is located in front of the rectum and below the bladder. The bladder stores urine. The urethra carries stored urine ou t of the body. An enlarged prostate can press on the urethra. This can make it harder to pass urine. The buildup of urine in the bladder can cause infection. Back pressure and infection may progress to bladder damage and kidney (renal) failure. What are the causes? This condition is part of the normal aging process. However, not all men develop problems from thiscondition. If the prostate enlarges away from the [...] urethra. Follow these instructions at home: Take dpsb-yju-ncyiell and prescription medicines only as told by [...] provider. Document Revised: 09/26/2021 Document Reviewed: 09/26/2021 [employer] Patient Education 2022 MyVerse. Follow Up Care 04/21/2023 11:28:44 With:AVE MARTINEZ, Yoseph Gomez, URL Address: [facility] [address] [place] [address]- [phone] When: Unknown [facility] 12-11-2023 Hospital Discharge instructions Patient Education 03/03/2023 11:43:49 [...] light, a camera, and an electric cutting edge(resectoscope) is passed through the urethra and into the prostate. The opening of the urethra is at the end of the penis. Tell a health care provider about: Any allergies you have. All medicines you are taking, including vitamins, herbs, eye drops, creams, and gyzx-psa-zrfxxay medicines. Any problems you or family members [...] provider tells you to take them. Taking zlnn-ony-cjpxlfp medicines, vitamins, herbs, and supplements. Surgery safety Ask your health care provider what steps will be taken to help prevent infection. These steps may include: Removing hair at the surgery site. Washing skin with a germ-killing soap. Taking antibiotic medicine. General instructions Do not use any products that contain nicotine or tobacco for at least 4 weeks before the procedure.These products include cigarettes, chewing tobacco, and vaping [...] blood oxygen level will be monitored until youleave the hospital or clinic. You will be [...] provider. Document Revised: 12/04/2021 Document Reviewed: 12/04/2021 [employer] Patient Education 2022 My[employer]se. 03/03/2023 11:43:45 Benign Prostatic Hyperplasia Benign Prostatic Hyperplasia Benign prostatic hyperplasia (BPH) is an enlarged prostate gland that is caused by the normal agingprocess. The prostate may get bigger as a man gets older. The condition is not caused by cancer. The prostate is a walnut-sized gland that is involved in the production of semen. It is located in front of the rectum and below the bladder. The bladder stores urine. The urethra carries stored urine ou t of the body. An enlarged prostate can press on the urethra. This can make it harder to pass urine. The buildup of urine in the bladder can cause infection. Back pressure and infection may progress to bladder damage and kidney (renal) failure. What are the causes? This condition is part of the normal aging process. However, not all men develop problems from thiscondition. If the prostate enlarges away from the [...] urethra. Follow these instructions at home: Take etme-qeo-dldbqfy and prescription medicines only as told by [...] provider. Document Revised: 09/26/2021 Document Reviewed: 09/26/2021 [employer] Patient Education 2022 My[employer]se. Follow Up Care 09/09/2022 10:15:32 With:AVE MARTINEZ, Yoseph Gomez, URL Address: [facility] [address] , [place] [address]- When: Unknown Comments:Schedule TURP [facility] Jennifer 11-28-2023 Evaluation note* Encounter Date Diagnosis Assessment Notes Treatment Notes Treatment Clinical Notes Jan, Type 2 diabetes mellitus with hy perglycemia (ICD-10 - E11.65) This patient is following [...] Microalbumin, Dilated eye exam and Foot exam Jan,Medicare annual wellness visit, initial (ICD-10 - Z00.00) [...] reviewed and amended by provider signed below. Jan,rimary hypertension (ICD-10 - I10)This patient is instructed to consume a healthy, low-fat, low-salt diet. They are also encouraged to continue exercise to achieve/maintain a normal BMI. Jan,Nocturia (ICD-10 - R35.1) Jan,enign prostatic hyperplasia with lower urinary tract symptoms (ICD- 10 - N40.1) Jan,Screening PSA (prostate specific antigen) (ICD-10 - Z12.5)PSA stable Need to double due to finasteride use. f/u Jan,olon cancer screening (ICD-10 - Z12.11)Due for Colonoscopy in 2023 Denies change in appetite or bowel habits. Denies melena or hematochezia Jan,Hypercholesteremia (ICD-10 - E78.00)Instructed on diet and exercise with continued statin therapy.Discussed the beneficial effects of lowering cholesterol in reducing the risk for cerebrovascular and cardiovascular disease. Jan,OtherInstructed on diet and exercise with continued statin therapy.Discussed the beneficial effects of lowering cholesterol in reducing the risk for cerebrovascular and cardiovascular disease. [facility] Other 06-19-2023 Hospital Discharge instructions Patient Education [...] treatment? Where to find more information The [employer]: www.cancer.org [employer]: www.auanet.org Contact a health care [...] provider. Document Revised: 09/03/2021 Document Reviewed: 09/03/2021 [employer] Patient Education 2022 MyVerse. Follow Up Care 05/21/2022 10:07:20 With:AVE MARTINEZ, Yoseph Gomez, URL Address: [facility] [address] [place] [address]- When: Unknown [facility] 02-28-2023 Hospital Discharge instructions Patient Education 05/21/2022 10:06:15 [...] Address: [facility] [address] [place] [address]- Business (1) When:09/18/2022 10:06:03 [facility]02-06-2023 Hospital Discharge instructions Patient Education 04/29/2022 08:11:46 [...] Follow these instructions at home: Medicines Take ised-jho-awxhxcc and prescription medicines only as told by [...] or the blood stops without treatment. Take vgbo-elk-mqdfpvm and prescription medicines only as told by your health care provider. Drink enough fluid to keep your urine clear or pale yellow. This information is not intended to replace advice given to you by your health care provider. Make sure you discuss any questions you have with your health care provider. Document Released: 03/10/2006 Document Revised: 08/04/2019 Document Reviewed: 04/12/2017 [employer] Patient Education 2020 MyVerse. Follow Up Care 03/29/2022 09:51:12 With:AVE MARTINEZ, Yoseph Gomez, URL Address: [facility] [address] , [place] [phone] When: Unknown [facility] 08-25-2022 NotePROCEDURE: XR FOOT RT MIN 3 [...] Electronically authenticated by: ROOSEVELT HUITRON Date: 2021-11-15 [facility]ments Appointment Date:05/14/2022 11:15:00 AM Scheduled Provider: Location:[facility] Appointment Type:Urology CALL PAT FT Appointment Date:05/21/2022 10:00:00 AM Scheduled Provider: Location:[facility] Appointment Type:Urology FT Diagnostic Tests Pending * [facility]ro[facility]ys[facility] Fish and Urine Cyto ([facility]) 04/29/22 [facility] evaluation + Plan note Future Appointments Appointment Date:09/09/2022 09:30:00 AM Scheduled Provider:Yoseph CHA MD Location:[facility] Appointment Type:URO Office Visit [facility] + Plan note Future Appointments Appointment Date:03/14/2023 09:30:00 AM Scheduled Provider:Yoseph CHA MD Location:[facility] Appointment Type:URO Office Visit [facility] evaluation + Plan note Future Appointments Appointment Date:03/19/2023 09:00:00 AM Scheduled Provider: Location:[facility] Appointment Type:URO Nurse Visit Appointment Date:03/31/2023 11:00:00 AM Scheduled Provider: Location:[facility] Appointment Type:URO Nurse Visit Appointment Date:04/21/2023 09:30:00 AM Scheduled Provider:Yoseph CHA MD Location:[facility] Appointment Type:URO Office Visit [facility] evaluation + Plan note Future Appointments Appointment Date:03/31/2023 11:00:00 AM Scheduled Provider: Location:[facility] Appointment Type:URO Nurse Visit Appointment Date:04/21/2023 09:30:00 AM Scheduled Provider:Yoseph CHA MD [facility] Appoint[facility] Type:URO Office Visit [facility] evaluation + Plan note Future Appointments Appointment Date:04/21/2023 09:30:00 AM Scheduled Provider:Yoseph CHA MD Location:[facility] Appointment Type:URO Office Visit [facility] evallnihyl + Plan note Future Appointments Appointment Date:01/23/2024 08:30:00 AM Scheduled Provider:Yoseph CHA MD Location:[facility] Appointment Type:URO Office Visit [facility] evaluation + Plan note Future Appointments Appointment Date:03/07/2025 08:45:00 AM Scheduled Provider:Yoseph CHA MD Location:[facility] Appointment Type:URO Office Visit Diagnostic Tests Pending * PSA Total 03/01/24 [facility] evaluation noteNo Share Practice Other Evaluation note* Diagnosis Obesity, Class I, BMI 30-34.9- Primary Essential hypertension Unspecified essential hypertension Hyperlipidemia, unspecified hyperlipidemia type BMI 31.0-31.9,adult Never smoked tobacco documented in this encounter [facility] Work Phone: Evaluation note* Diagnosis Essential hypertension- Primary Unspecified essential hypertension Mixed hyperlipidemia BMI 31.0-31.9,adult Never smoked tobacco Obesity, Class I, BMI 30-34.9 Prediabetes Other abnormal glucose documented in this encounter [facility] Work Phone: History and physical note Author Micahel Partida [facility] Date/TimeFebruary 2024 8:57am [place] [address] Gastroenterology H&P Signed Patient: Bob Nunez MR#: [id number] : 1960 Acct:[id number] Age/Sex: 64 / M Adm Date: 5 Loc: Room: Type: [facility] Attending Dr: Michael Partida MD Copies to: DO Michael Diaz MD~ Date of Service: 05/12/2024 HISTORY & PHYSICAL: Patient's history with special attention to the cardiovascular, pulmonary systems and the current problem was reviewed with the patient immediately prior to the procedure. Present medications and doses reviewed in the EMR. Allergies and pertinent laboratory tests were also re viewedat this time in the EMR. The physical examination, as below, was then performed. Indication, assessment and HPI: 64-year-old male presents for screening colonoscopy Family history of GI malignancy? no PHYSICAL EXAMINATION Mouth and Pharynx : moist mucus membranes, normal dentition Eyes: EOM intact b/l, normal sclera Pulmonary: normal respiratory effort, able to speak in complete sentences Neurological: alert and oriented x3, moves all extremities Skin: non-jaundiced, warm and dry Abdomen: non-distended, normal to inspection Psych: Mental status and mood grossly normal REVIEW OF SYSTEMS Constitutional: Denies malaise, fevers Cardiovascular: Denies chest pain, palpitations Respiratory: Denies shortness of breath, wheezing Gastrointestinal: Per HPI Genitourinary: Denies dysuria, polyuria Musculoskeletal: Denies joint swelling, joint stiffness Neurological: Denies numbness, tingling Integumentary: Denies rashes, skin lesions Endocrine: Denies fatigue, weight loss Written informed consent obtained from the patient. Risks (including but not limited to perforation, infection, bloating, bleeding, need for emergent surgeryand loss of life), benefits and alternatives explained and questions answered. The patient verbalized understanding. Based on history patient is an appropriate candidate for the procedure. Michael Partida MD Documented By: Michael Partida MD 05/12/24 08 Signed By: <Electronically signed by Michael Partida MD> 05/12/24 08 [facility] Work Phone: History general Narrative - Reported* Type Description Date Medical History Mixed hyperlipidemia Medical HistoryEssential (primary) hypertensionMedical HistoryType 2 diabetes mellitus with hyperglycemiaSurgical HistoryHernia RepairSurgical History Pdrxsqinlfo18355,2007,2010,2013Surgical HistoryTonsillectomyHospitalization Historysee surgical hx [facility] Other Hospital course Narrative No data available for this section [facility] Hospital Discharge instructions No data available for this section [facility] Hospital Discharge instructions Additional Instructions DISCHARGE INSTRUCTIONS FOR COLONOSCOPY WHAT TO EXPECT: - You may feel full, gassy or cramping after your procedure. In some cases, this may be from a few hours to a day. Walking may help relieve the discomfort. - If you have polyp(s) removed you may note some minor bloody discharge after your first bowel movements. - You should begin to recover from anesthesia within 1 hour of the procedure, however may feel groggy for the next 24 hours. DO's AND DON'Ts: - Call your doctor right away if you have a hard abdomen, severe pain, are passing lots of bright red blood or clots. - Call your doctor if you develop any rashes, hives or difficulty breathing. - Let your doctor know if you have not had a bowel movement by 3 days after your procedure. - If you take 81 mg aspirin for your heart it is safe to resume this medication. - If you take other blood thinner medications your doctor will instruct you when these can safely be resumed. - Do NOT drive for 24 hours. - Do NOT operate machinery such as power tools, lawn mowers, snow blowers, sewing machines, etc. for 24 hours. - Avoid alcoholic beverages and drugs for allergies, nerves, or sleep. - Do NOT stay alone. Do NOT leave your child unattended. - Do NOT make important personal or business decisions or sign any legal documents. - Eat solid foods and drink liquids in smaller amounts than usual until normal appetite returns. If you should experience an upset stomach, liquids high in sugar content (soda, True-Aid, non-acid juices) are recommended. - You can resume normal activities tomorrow. FOLLOW UP & RECOMMENDATIONS: -You should have a repeat colonoscopy in 3 years because he had several small noncancerous polyps removed today. -Notify the doctor if you have any problems. -Follow-up with the GI office as needed. -Follow up with PCP. -Office number [phone].[facility] Work Phone: Progress note No data available for this section [facility] reason for referral (narrative)* Consultation (Routine) - AuthorizedSpecialtyDiagnoses / ProceduresReferred By ContactReferred To ContactCardiology Diagnoses Essential hypertension Procedures Follow Up In Cardiology Lanie Cruz MD [address] [facility] [address] [place] [address] Lanie Cruz MD [address] [facility] [address] [place] [address] Referral IDStatusReasonStart DateExpiration DateVisits RequestedVisits [id number]/17/20247/ T [facility] Work Phone: Summary Purpose Family History Unknown Family Member Name Dates Details Family history of pulmonary hypertension: Mother(V17.49, Z82.49) Status:Active Unknown Family Member Name Dates Details Family history of pulmonary hypertension: Mother(V17.49, Z82.49) Status:Active Relationship Condition Age at Onset Recorded Date/T rip mother Heart disease Unknown Advance Directives Advance Directive Response Recorded Date/ Time Advance Directives Yes November 2:50pm Chief Complaint * BOB NUNEZ is being seen for an annual [...] with any office in 9 months * BOB NUNEZ is being seen for an annual [...] with any office in 1 year * BOB NUNEZ is being seen for an annual [...] follow-up with any office in 1 year Chief Complaint and Reason for Visit Chief Complaint Admit Date CC Adult Risk Stratification February 162023 11:46am wellness February 23, 2024 1 1:00am Screening May 12, 2024 7:05am Screening May 12, 2024 8:00am Reason for Visit Admit Date Hypercholesterolemia February 23, 2024 11:00am Hypertension February 23, 2024 1 1:00am Screening for colon cancer February 23, 2024 11:00am Screening PSA (prostate specific antigen ) February 23, 2024 11:00am Type 2 diabetes mellitus with hyperglyce goyo February 23, 2024 11:00am Medicare annual wellness visit, initial February 23, 2024 11:00am Additional Source Comments (unrecognized sect ion and content) No Status Records FoundNo Status Records FoundNo Status Records FoundNo Status Records FoundNo Status Records FoundNo Status Records FoundNo Status Records Found INFORMATION SOURCE (unrecogn ized section and content) DATE CREATED AUTHOR 03/01/2018 [facility] DATE CREATED AUTHOR AUTHOR'S ORGANIZ ATION 03/22/2022 [facility] DATE CREATED AUTHOR AUTHOR'S ORGANIZ ATION 10/09/2022 [facility] DATE CREATED AUTHOR AUTHOR'S ORGANIZ ATION 10/09/2022 [employer] DATE CREATED AUTHOR AUTHOR'S ORGANIZ ATION 10/11/2023 [facility] DATE CREATED AUTHOR AUTHOR'S ORGANIZ ATION 03/04/2024 [facility] DATE CREATED AUTHOR AUTHOR'S ORGANIZ ATION 05/13/2024 [facility] Patient Care team informatio n (unrecognized section and content) Team MemberRelationshipSpecialtyStart DateEnd Date Xavi Hensley DO [address] [place] [address] [facility] Team Status: Active Member Role Status Dates Xavi Hensley DO Primary Care Provider Active Team Status: Active Member Role Status Dates Xavi Hensley DO Primary Care Provide r, Attending Provider Active Start: February 17, 2024 Team Status: Inactive Member Role Status Dates Xavi Hensley DO Primary Care Provide r, Attending Provider Active Start: February 23, 2024 End: February 23, 2024 Team Status: Inactive Member Role Status Dates Xavi Hensley DO Primary Care Provider Active Start: May 12, 2024 End: May 12Jacqueline Whitehead ProviderActiveStart: May 12, 2024 End: May 12, 2024 Team Status: Active Member Role Status Dates Xavi Hensley DO Primary Care Provider Active Start: May 12, 2024 Jacqueline Grace Provider, Other ProviderActiveStart: May 12, 2024 Team MemberRelationshipSpecialtyStart DateEnd Date Ayden Xavi Garcia [address] [place] [address] PCP - [facility]10/08/23 REASON FOR VISIT (unrecogniz ed section and content) ReasonCommentsAnnual ExamReasonCommentsAnnual Exam1 year Follow up for HypertensionSpecialtyDiagnoses / ProceduresReferred By ContactReferred To ContactCardiology Diagnoses Essential hypertension Procedures Follow Up In Cardiology Lanie Cruz MD [address] [facility] [address], [address] [address] Phone: tel: fax: Lanie Cruz MD [address] [facility] [address], [address] [address] Phone: tel: fax: Referral IDStatusReasonStart DateExpiration DateVisits RequestedVisits [id number]/17/20247/17/202511 FOR RECORDS PERTAINING TO PATIENTS WHO ARE [...] BE BASED ON THE PRIMARY CLINICAL RECORDS. [facility] [employer] [facility]. provides no warranty or guarantee of the accuracy or completeness of information in this document.
--- OUTSIDE RECORDS SUMMARY | 2025-02-24 06:31 | XMS_ITS | Clinical Summary ---
Author Organization [facility] Address [address] [place] [address] Phone Care Team Providers Care Director Of Managed Services Name Role Phone Xavi Hensley DO Primary Care Provider [phone] Allergies No known active allergies Medications MedicationSigDispense QuantityRefillsLast FilledStart DateEnd DateStatus carvedilol (Coreg) 6.25 mg tablet Take 1 tablet (6.25 mg) by mouth 2 times a day.Active ezetimibe (Zetia) 10 mg tablet Take 1 tablet (10 mg) by mouth once daily.Active omega 8-jko-rpk-fish oil (Fish OiL) 1,200 (144-216) mg capsule Take 2 capsules (2,400 mg) by mouth once daily.Active lisinopril 20 mg tablet Take 1 tablet (20 mg) by mouth once daily.Active magnesium oxide (Mag-Ox) 250 mg magnesium tablet Take 1 tablet (250 mg) by mouth once daily.Active multivitamin (Daily Multi-Vitamin) tablet Take 1 tablet by mouth once daily.Active dutasteride (AVODART ORAL) Take 1 capsule by mouth once daily.Active APPLE CIDER VINEGAR ORAL Take by mouth.Active Active Problems ProblemNoted DateDiagnosed DateBMI 31.0-31.9,adult10/08/2023Never smoked tobacco 10/08/20233956Pftqxucrsdphvv21/13/2024Essential xsarnunsebie93/13/2024PH with elevated PSA06/04/2023 Immunizations ImmunizationAdministration DatesNext DueInfluenza, Valvmpuzdcd71/01/2008Pfizer Purple Cap JSUE-TcY-488/23/2021 Family History Medical HistoryRelationNameCommentspulmonary hypertensionMotherRelationName StatusCommentsMother Social History Tobacco UseTypesPacks/DayYears UsedDateSmoking Tobacco: NeverSmokeless Tobacco: NeverAlcohol UseStandard Drinks/WeekCommentsNot Currently0 (1 standard drink = 0.6 oz pure alcohol)Sex and Gender InformationValueDate RecordedSex Assigned at BirthNot on fileLegal EbnTrzj87/26/2022 12:31 AM ESTGender IdentityNot on file Sexual OrientationNot on file Last Filed Vital Signs Vital SignReadingTime TakenCommentsBlood Chuimvyy329/8007/ 8:49 AM EDT Daumj444610/12/2024 8:39 AM EDTTemperature--Respiratory Rate--Oxygen Saturation-- Inhaled Oxygen Concentration--Srjtzd62.3 kg (196 lb 12.8 oz)10/12/2024 8:39 AM UXNQrfmgl531.6 cm (5' 6 )10/12/2024 8:39 AM EDTBody Mass Index31.76010/12/2024 8:39 AM EDT Plan of Treatment DateTypeDepartmentCare Team (Latest Contact Info)Tvpklghvrbo95/16/2026 8:30 AM EDTOffice Visit [facility] [address] [address] Bertha Cruz MD [address] [facility] [address], [address] [address] Health MaintenanceDue DateLast DoneCommentsCT Gjhzpcnohlve1960Diabetes: Hemoglobin A1C1958FIT-DNA (Cologuard)1960FIT1960Lipid Panel 1960 9331Wrcdajxfmycfd1958MMR Vaccines (1 of 1 - Standard series) 1959Diabetes Sptmwivso02/31/1976Hepatitis C Myyyoeoea28/31/1976 DTaP/Tdap/Td Vaccines (1 - Tdap)01/22/1980PSA Prostate Cancer Screening 01/22/2008Pneumococcal Vaccine (1 of 1 - PCV)01/22/2008Zoster Vaccines (1 of 2) 01/22/2008Medicare Annual Wellness Visit (AWV)/Influenza Vaccine (#1)COVID-19 Vaccine (2 - season)2024 07/14/2020SV High Risk: (Elderly (60+) or Population) (1 - 1-dose 75+ series)01/21/20332322Bfjqxeeciqs74olorectal Cancer Screening 05/12/2034Welcome to Medicare DdqusIddqeavjbxlk22/28/2023HIB VaccinesAged OutNo longer eligible based on patient's age to complete this topicHPV VaccinesAged OutNo longer eligible based on patient's age to complete this topicHepatitis A VaccinesAged OutNo longer eligible based on patient's age to complete this topic Hepatitis B VaccinesAged OutNo longer eligible based on patient's age to complete this topicIPV VaccinesAged OutNo longer eligible based on patient's age to complete this topicMeningococcal VaccineAged OutNo longer eligible based on patient's age to complete this topicRotavirus VaccinesAged OutNo longer eligible based on patient's age to complete this topic Insurance * Guarantor: Cesar Mae TypeRelation to PatientDate of BirthPhone Billing AddressPersonal/TntrroDsud[address] [place] [phone] * Guarantor: Cesar Mae TypeRelation to PatientDate of BirthPhone Billing AddressPersonal/KzlukxBjwr[address] [place] [phone] Care Teams Team MemberRelationshipSpecialtyStart DateEnd Date Xavi Hensley DO [address] [facility] [place] [address] PCP - GeneralInternal Medicine10/08/23
--- OUTSIDE RECORDS SUMMARY | 2025-02-24 06:31 | XMS_ITS | Clinical Summary ---
Author Organization [facility] Address [address] [place] [address] Care Team Providers Care Baster Hand Name Role Phone Unavailable Primary Care Provider Unavailabl e Social History Tobacco UseTypesPacks/DayYears UsedDateSmoking Tobacco: Never AssessedSex and Gender InformationValueDate RecordedSex Assigned at BirthNot on fileLegal Sex Male02/23/2012 8:08 AM ESTGender IdentityNot on fileSexual OrientationNot on file Plan of Treatment Health MaintenanceDue DateLast DoneCommentsAnxiety Cjepphakk47/31/1976Depression Rparfuzds63/31/1976Hepatitis C Czhaugxkx18/31/1976DTaP,Tdap,Td Vaccine (1 - Tdap)1977Lipid Ivdzvnguu26/31/1993CT Ysrwkqqlrvju11/31/2003Cologuard (FIT-DNA)01/21/20035937Lehpuwzjunb07/31/2003Colorectal Cancer Osdfefjjl10/31/2003 Diabetes Tgozzfosa23/31/2003Fecal Occult Blood2003Prostate Cancer Screening Gnzvzqmlyk95/31/6128Bfoqgaszkojxs37/31/2003Pneumococcal Vaccine: 50+ (1 of 1 - PCV)01/22/2008Shingrix Vaccine (1 of 2)01/22/2008dvance Directive Ratrzguhfe62/01/2025ovid-19 Vaccine (1 - 2024- season)2024Influenza Vaccine (#1)2024RSV Vaccine (1 - 1-dose 75+ series)2033 Insurance * Guarantor: Bob Mae TypeRelation to PatientDate of BirthPhone Billing WiydheqLysyxUgnb[address] [place] [address]
[2025-02-24 07:00] LABS: Hematocrit 43.4 % (42.0-54.0); Hemoglobin 15.0 g/dL (14.0-18.0); Immature Granulocytes Abs Auto 0.03 10^3/uL (0.00-0.03); Immature Granulocytes Pct Auto 0.4 % (0.0-0.5); Lymphocytes Absolute Auto 3.0 10^3/uL (1.2-3.8); Mean Corpuscular HGB Conc 34.6 g/dL (29.9-35.2); Mean Corpuscular Hemoglobin 32.7 pg (25.9-34.0); Mean Corpuscular Volume 94.6 fL (80.0-94.0); Platelet Count 150 10^3/uL (150-450); Red Blood Count 4.59 10^6/uL (4.70-6.10); White Blood Count 7.1 10^3/uL (4.0-11.0)
[2025-02-24 07:22] LABS: Alanine Aminotransferase 36 U/L (16-63); Albumin Globulin Ratio 1.1; Albumin Level 3.4 g/dL (3.4-5.0); Alkaline Phosphatase 59 U/L (46-116); Anion Gap 12.0; Aspartate Amino Transferase 15 U/L (15-37); Blood Urea Nitrogen 23.0 mg/dL (7.0-18.0); Calcium 8.9 mg/dL (8.5-10.1); Carbon Dioxide 29.5 mmol/L (21.0-32.0); Chloride 106 mmol/L (98-107); Cholesterol 222 mg/dL (<=200); Estimated GFR (African America >60 (>=60 mL/min/1.73m^2); Estimated GFR (Non-African Ame 58 (>=60 mL/min/1.73m^2); Globulin 3.1 g/dL; Glucose 181 mg/dL (74-106); HDL Cholesterol 35 mg/dL (40-60); Potassium 4.5 mmol/L (3.5-5.1); Sodium 143 mmol/L (136-145); Total Protein 6.5 g/dL (6.4-8.2); Triglycerides 299 mg/dL (<=150); VLDL CHOLESTEROL 59.8 mg/dL
== END 2025-02-24 06:27 | disposition home or self-care (01) ==
LOC: LAB 06:28
PROVIDERS: PCP Internal Medicine; Visit Provider Internal Medicine
DX: E78.00 Pure hypercholesterolemia, unspecified (principal); Z12.5 Encounter for screening for malignant neoplasm of prostate; E11.65 Type 2 diabetes mellitus with hyperglycemia; I10 Essential (primary) hypertension
CPT/HCPCS: 36415; 80053; 80061; 83036; 85025; G0103